=== PATIENT | female | born 1985 | race Hispanic/Latino ===

== ENCOUNTER 2017-04-05 01:57 | Emergency (ER) | payer OTHER ==
[~2017-04-05] VITALS: Ht 152.4 cm; Wt 78.0 kg
[~2017-04-05 01:57] MED LIST: AZIT-21 PO; CEFP500T4 PO; CEPH500C PO; CLIN300C3 PO; DCS100C PO; FAMO1TAB21 PO; HYDR-3454 PO; MAGN400T29 PO; NITR-65 PO; OMEP20CA12 PO; ONDA4TAB8 SL; ONDAN4ODT PO; OXYC-190 PO; PNT40TEC PO; [UNRECOGNIZED DRUG - CODE] OT
[2017-04-05] MEDS ORDERED: morphine INJ 10 MG/ML 1ML (SYR OR VIAL) IVP STA (02:11)
[2017-04-05] MEDS ORDERED: ASPIRIN 81 MG CHEW (CHILDREN'S ASA) PO ONE (02:15)
[2017-04-05 02:28] LABS: BASOPHILS % (AUTO) 0 % (0-10); EOSINOPHILS # (AUTO) 0.1 10^3/uL (0.0-0.3); EOSINOPHILS % (AUTO) 1 % (0-10); LYMPHOCYTES # (AUTO) 3.5 X 10^3 (1.0-4.0); LYMPHOCYTES % (AUTO) 26 % (12-44); MEAN CORPUSCULAR HEMOGLOBIN 30 PG (25-34); MEAN CORPUSCULAR HGB CONC 33 G/DL (32-36); MEAN CORPUSCULAR VOLUME 90 FL (80-99); MEAN PLATELET VOLUME 10.7 FL (7.4-10.4); MONOCYTES # (AUTO) 0.9 X 10^3 (0.0-1.0); MONOCYTES % (AUTO) 7 % (0-12); NEUTROPHILS # (AUTO) 8.8 X 10^3 (1.8-7.8); NEUTROPHILS % (AUTO) 66 % (42-75); PLATELET COUNT 272 10^3/uL (130-400); RED BLOOD COUNT 4.31 10^6/uL (4.35-5.85); RED CELL DISTRIBUTION WIDTH 12.7 % (10.0-14.5); WHITE BLOOD COUNT 13.4 10^3/uL (4.3-11.0)
[2017-04-05] MEDS ORDERED: NS IV 1000 ML 1,000 ML IV ONE (02:33)
[2017-04-05 02:37] LABS: INR 0.9 (0.8-1.4); PROTHROMBIN TIME PATIENT 12.5 SEC (12.2-14.7)
[2017-04-05] MEDS ORDERED: KETOROLAC 30 MG/ML VIAL IVP STA (02:37)
--- NOTE | 2017-04-05 02:45 | ED Chest Pain ---
General Chief Complaint: Chest Pain Stated Complaint: CP Nursing Triage Note: PT AMBULATED TO ROOM. PT C/O CP SINCE THIS MORNING. PT C/O NAUSEA, DIZZINESS, AND BACK PAIN. Nursing Sepsis Screen: No Definite Risk Source: patient, other (friends (2 nuns)) Exam Limitations: language barrier History of Present Illness Time seen by provider: 02:07 Initial Comments Here with report of central chest pain that radiates to her back. This is been going on about 5 hours. Describes it is moderate to severe. States it's of pain. Denies nausea or vomiting. States that she feels a little dizzy. Pain is worse with deep breathing. Timing/Duration: 4-6 hours Severity/Quality: moderate, severe, aching Location: central Radiation: back Activities at Onset: none Prior CP/Workup: no prior cardiac workup ASA po SCRAP [employer]CH [employer]KER: No NTG SL SCRAP BUNCH MAKER: No Associated Symptoms: No abdominal pain, back pain, No diaphoresis, No fever/ chills, No nausea/vomiting, shortness of breath, No weakness Allergies and Home Medications Allergies Coded Allergies: Penicillins (Verified Allergy, Unknown, 06/28/12) FROM UNCODED ALLERGY LIST Home Medications Omeprazole 20 Mg Capsule.dr, 20 MG PO BID, #30 Prescribed by: MICHAEL MARQUEZ on 04/22/166 Ondansetron 4 Mg Tab.rapdis, 4 MG SL Q4H PRN for NAUSEA/VOMITING, #10 Prescribed by: MICHAEL MARQUEZ on 04/22/166 Review of Systems Constitutional: see HPI EENTM: No Symptoms Reported Respiratory: See HPI, Denies Cough, Shortness of Air Cardiovascular: Chest Pain, Denies Edema, Lightheadedness Gastrointestinal: Denies Abdominal Pain, Denies Diarrhea, Denies Vomiting Genitourinary: No Symptoms Reported Musculoskeletal: no symptoms reported All Other Systems Reviewed Negative Unless Noted: Yes Past Xrfrwuz-Xknfkj-Xrcsio Hx Patient Social History Alcohol Use: Occasionally Uses Number of Drinks Today: AA Alcohol Beverage of Choice: Beer Recreational Drug Use: No Smoking Status: Never a Smoker 2nd Hand Smoke Exposure: No Recent Foreign Travel: No Contact w/Someone Who Travel: No Recent Infectious Disease Expo: No Recent Hopitalizations: No Physical Abuse: No Sexual Abuse: No Immunizations Up To Date Tetanus Booster (TDap): Unknown Date of Influenza Vaccine: Feb 21, 2014 Seasonal Allergies Seasonal Allergies: No Surgeries History of Surgeries: Yes (hernia repair) Surgeries: Gallbladder Respiratory History of Respiratory Disorde: No Cardiovascular History of Cardiac Disorders: No (15 years ago reports an arrythmia) Neurological History of Neurological Disord: No Reproductive System Hx Reproductive Disorders: No (2 CHILDREN) Sexually Transmitted Disease: No HIV/AIDS: No Genitourinary History of Genitourinary Disor: No Gastrointestinal History of Gastrointestinal Di: Yes Gastrointestinal Disorders: Gastroesophageal Reflux Musculoskeletal History of Musculoskeletal Dis: No Endocrine History of Endocrine Disorders: No HEENT History of HEENT Disorders: No Cancer History of Cancer: No Psychosocial History of Psychiatric Problem: No Suicide Risk Score: 0 Integumentary History of Skin or Integumenta: No Blood Transfusions History of Blood Disorders: No Adverse Reaction to a Blood Tr: No Family Medical History Significant Family History: Heart Disease, Diabetes Family Medial History: Family history: Diabetes mellitus 03 MOTHER Family history: Hypertension 03 FATHER No Family History of: Abdominal aortic aneurysm Sudeep's disease Alcoholism Aphasia Cancer Cancer of colon Cataract Chest pain Congenital heart disease Congestive heart failure Cystic fibrosis Dementia Dysphagia Family history: Allergy Family history: Alzheimer's disease Family history: Arthritis Family history: Asthma Family history: Breast disease Family history: Cardiovascular disease Family history: Coronary thrombosis Family history: Gastrointestinal disease Family history: Glaucoma Family history: Osteoporosis Family history: Thyroid disorder Headache Hearing loss Heart disease Hereditary disease History of - anemia History of - disorder History of - respiratory disease History of drug abuse Human immunodeficiency virus (HIV) seropositivity Hypercholesterolemia Infertile Kidney disease Malignant neoplasm of lung Myocardial infarction Parkinson's disease Prostate cancer Psychotic disorder Seizure disorder Stroke Tuberculosis Visual impairment Physical Exam Vital Signs Vital Sign - Last 12Hours Capillary Refill : Less Than 3 Seconds General Appearance: WD/WN, Anxious, Moderate Distress HEENT: PERRL/EOMI, Pharyngeal Erythema, Other (clear rhinorrhea bilaterally with mild to moderate nasal congestion and erythema) Neck: Non Tender, Supple Respiratory: Lungs Clear, No Respiratory Distress Cardiovascular: Regular Rate, Rhythm, Normal Peripheral Pulses Gastrointestinal: Non Tender, Soft Extremity: Normal Inspection, Normal Range of Motion, Non Tender, No Calf Tenderness Neurologic/Psychiatric: Alert, Oriented x3 Skin: Normal Color, Warm/Dry Progress/Results/Core Measures Results/Orders Lab Results Laboratory Tests Test 04/05/17 02:12 Range/Units White Blood Count 13.4 H 4.3-11.0 10^3/uL Red Blood Count 4.31 L 4.35-5.85 10^6/uL Hemoglobin 13.0 11.5-16.0 G/DL Hematocrit 39 35-52 % Mean Corpuscular Volume 90 80-99 FL Mean Corpuscular Hemoglobin 30 25-34 PG Mean Corpuscular Hemoglobin Concent 33 32-36 G/DL Red Cell Distribution Width 12.7 10.0-14.5 % Platelet Count 272 130-400 10^3/uL Mean Platelet Volume 10.7 H 7.4-10.4 FL Neutrophils (%) (Auto) 66 42-75 % Lymphocytes (%) (Auto) 26 12-44 % Monocytes (%) (Auto) 7 0-12 % Eosinophils (%) (Auto) 1 0-10 % Basophils (%) (Auto) 0 0-10 % Neutrophils # (Auto) 8.8 H 1.8-7.8 X 10^3 Lymphocytes # (Auto) 3.5 1.0-4.0 X 10^3 Monocytes # (Auto) 0.9 0.0-1.0 X 10^3 Eosinophils # (Auto) 0.1 0.0-0.3 10^3/uL Basophils # (Auto) 0.0 0.0-0.1 10^3/uL Prothrombin Time 12.5 12.2-14.7 SEC INR Comment 0.9 0.8-1.4 Activated Partial Thromboplast Time 30 24-35 SEC D-Dimer 0.49 0.00-0.49 UG/ML Sodium Level 139 135-145 MMOL/L Potassium Level 3.5 L 3.6-5.0 MMOL/L Chloride Level 106 98-107 MMOL/L Carbon Dioxide Level 22 21-32 MMOL/L Anion Gap 11 5-14 MMOL/L Blood Urea Nitrogen 10 7-18 MG/DL Creatinine 0.69 0.60-1.30 MG/DL Estimat Glomerular Filtration Rate > 60 BUN/Creatinine Ratio 14 Glucose Level 94 70-105 MG/DL Calcium Level 9.1 8.5-10.1 MG/DL Magnesium Level 2.0 1.8-2.4 MG/DL Total Bilirubin 0.2 0.1-1.0 MG/DL Aspartate Amino Transf (AST/SGOT) 12 5-34 U/L Alanine Aminotransferase (ALT/SGPT) 14 0-55 U/L Alkaline Phosphatase 68 40-136 U/L Myoglobin 19.9 10.0-92.0 NG/ML Troponin I < 0.30 <0.30 NG/ML Total Protein 7.9 6.4-8.2 GM/DL Albumin 4.0 3.2-4.5 GM/DL Amylase Level 83 25-125 U/L Lipase 10 8-78 U/L Serum Test, Qualitative NEGATIVE NEGATIVE My Orders Orders - PIO GARZA MD Cbc With Automated Diff (04/05/17 02:11) Magnesium (04/05/17 02:11) Chest 1 View, Ap/Pa Only (04/05/17 02:11) Ekg Tracing (04/05/17 02:11) Cardiac Profile 1 (04/05/17 02:11) Comprehensive Metabolic Panel (04/05/17 02:11) Myoglobin Serum (04/05/17 02:11) Protime With Inr (04/05/17 02:11) Partial Thromboplastin Time (04/05/17 02:11) O2 (04/05/17 02:11) Monitor-Rhythm Ecg Trace Only (04/05/17 02:11) Lipid Panel (04/06/17 06:00) Aspirin Chewable Tablet (Baby Aspirin Ch (04/05/17 02:15) Saline Lock/Iv-Start (04/05/17 02:11) Lipase (04/05/17 02:11) Amylase (04/05/17 02:11) Morphine Injection (Morphine Injection (04/05/17 02:11) Fibrin Degradation Products (04/05/17 02:12) Ns Iv 1000 Ml (Sodium Chloride 0.9%) (04/05/17 02:33) Ketorolac Injection (Toradol Injection) (04/05/17 02:37) Hcg,Qualitative Serum (04/05/17 02:45) Lidocaine 2% Viscous 15 Ml (Xylocaine Vi (04/05/17 03:15) Antacid Suspension (Mylanta Suspension (04/05/17 03:15) Famotidine Injection (Pepcid Injection) (04/05/17 03:08) Medications Given in ED Current Medications Medications Dose Ordered Sig/Megan Route Start Time Stop Time Status Last Admin Dose Admin Al Hydrox/Mg Hydrox/Simethicone 30 ml ONCE ONCE PO 04/05/17 03:15 04/05/17 03:16 DC 04/05/17 03:15 30 ML Aspirin 324 mg ONCE ONCE PO 04/05/17 02:15 04/05/17 02:16 DC 04/05/17 02:18 324 MG Lidocaine HCl 15 ml ONCE ONCE PO 04/05/17 03:15 04/05/17 03:16 DC 04/05/17 03:15 15 ML Sodium Chloride 1,000 ml @ 0 mls/hr Q0M ONCE IV 04/05/17 02:33 04/05/17 02:35 DC 04/05/17 02:43 1,000 MLS/HR Vital Signs/I&O Vital Sign - Last 12Hours 04/05/17 04/05/17 02:00 02:00 Temp 98.8 Pulse 95 Resp 23 B/P (MAP) 143/89 Pulse Ox 96 O2 Delivery Room Air Room Air Blood Pressure Mean: 107 Progress Note : Progress Note Seen and evaluated. IV, labs, EKG and chest x-ray ordered. Morphine 4 mg IV. Patient reporting dizziness but states pain is a little better. ASA 324 mg by mouth given. Normal saline 1 L bolus. Toradol 30 mg IV for continued pain. Monitor patient. Patient also given Pepcid 20 mg IV and GI cocktail. 0345: Overall much improved with only minimal residual. Patient was to go home. She has an following in the clinic and states she will follow back up in the clinic. The Sisters that are with her have assisted greatly. Discharged home with return precautions. Patient verbalize understanding instructions and agreement with plan. ECG Initial ECG Impression Date: Apr 05, 2017 Initial ECG Impression Time: 02:04 Initial ECG Rate: 106 Initial ECG Rhythm: Normal Sinus Initial ECG Impression: Normal Initial ECG Comparisson: Unchanged Comment Sinus rhythm with leftward axis. No evidence of ST elevation ND. Similar to previous of 21 April 2016 with slight increase of rate. Interpreted by me. Diagnostic Imaging Diagonstic Imaging: Xray Plain Films/CT/US/NM/MRI: chest Comments No acute findings Reviewed: Reviewed by Me Departure Impression Impression: Primary Impression: Chest pain Qualified Codes: R07.9 - Chest pain, unspecified Additional Impression: Gastroesophageal reflux disease Qualified Codes: K21.9 - Gastro-esophageal reflux disease without esophagitis Disposition: 01 HOME, SELF-CARE Condition: Improved Departure-Patient Inst. Decision time for Depature: 03:49 Referrals: NO,LOCAL PHYSICIAN (PCP) Primary Care Physician Patient Instructions: Chest Pain (DC), Acid Reflux (Gastroesophageal Reflux Disease), Adult (DC) Add. Discharge Instructions: All discharge instructions reviewed with patient and/or family. Voiced understanding. Follow-up in the clinic this week for recheck and further evaluation. Return for worse pain, fever, vomiting, breathing problems or other concerns as needed. Avoid spicy foods. You may take Pepcid or the generic famotidine 20 mg daily as needed for stomach upset. You should follow-up in the clinic for recheck and further evaluation including possible referral to a surgeon for upper endoscopy (scope that looks into the stomach). Copy Copies To 1: PANFILO FLOREZ TIMOTHY D MD Apr 05, 2017 02:45
[2017-04-05 02:49] LABS: ALANINE AMINOTRANSFERASE 14 U/L (0-55); AMYLASE 83 U/L (25-125); ANION GAP 11 MMOL/L (5-14); ASPARTATE AMINO TRANSFERASE 12 U/L (5-34); BILIRUBIN,TOTAL 0.2 MG/DL (0.1-1.0); BLOOD UREA NITROGEN 10 MG/DL (7-18); BUN/CREATININE RATIO 14; CALCIUM 9.1 MG/DL (8.5-10.1); CARBON DIOXIDE 22 MMOL/L (21-32); CHLORIDE 106 MMOL/L (98-107); CREATININE SERUM 0.69 MG/DL (0.60-1.30); GFR ESTIMATED > 60; GLUCOSE 94 MG/DL (70-105); LIPASE 10 U/L (8-78); POTASSIUM 3.5 MMOL/L (3.6-5.0); SODIUM 139 MMOL/L (135-145); TOTAL PROTEIN 7.9 GM/DL (6.4-8.2)
[2017-04-05 02:55] LABS: MYOGLOBIN SERUM 19.9 NG/ML (10.0-92.0)
[2017-04-05] MEDS ORDERED: FAMOTIDINE 20MG/2ML IV (PEPCID) IV STA (03:08)
[2017-04-05] MEDS ORDERED: LIDOCAINE 2% VISCOUS 15 ML UDC PO ONE (03:15)
[2017-04-05] MEDS ORDERED: ANTACID SUSP 30 ML UDC (MYLANTA) PO ONE (03:15)
[2017-04-05 03:54] VITALS: BP 137/91
--- NOTE | 2017-04-05 07:15 | Diagnostic Imaging Report ---
INDICATION: Chest pain. Comparison with 04/21/2016. FINDINGS: The lungs are well-aerated. There are no infiltrates. Heart is not enlarged. No hilar adenopathy. No pneumothorax or pleural effusions. No bony abnormalities. IMPRESSION: Normal portable chest. Dictated by: Dictated on workstation # [id number]
== END 2017-04-05 03:54 | disposition home or self-care (01) ==
LOC: EDUNIT# 01:57 → ER 01:59
DX: K21.9 Gastro-esophageal reflux disease without esophagitis (principal); Z87.19 Personal history of other diseases of the digestive system; Z82.49 Family history of ischemic heart disease and other diseases of the circulatory system
CPT/HCPCS: 36415; 71010; 80053; 82150; 83690; 83735; 83874; 84484; 84703; 85025; 85379; 85610; 85730; 93005; 93041; 96361; 96374; 96375

== ENCOUNTER 2017-06-26 00:17 | Emergency (ER) | payer SELFPAY ==
--- OUTSIDE RECORDS SUMMARY | 2017-06-26 00:23 | XMS REPORT | Continuity of Care Document ---
Author Author [facility] Organization [facility] Address Unknown Phone Unavailable Allergies Active Description Code Type Severity Reaction Onset Reported/Identified Relationship to Patient Clinical Status Yes Penicillins [id number] Drug Allergy Unknown N/A 06/28/2012 Medications There is no data. Problems Date Dx Coded Attending Type Code Diagnosis Diagnosed By 04/14/2012 Ot 275.2 DIS MAGNESIUM METABOLISM 04/14/2012 Ot 530.81 ESOPHAGEAL REFLUX 04/14/2012 Ot 786.50 CHEST PAIN NOS 06/19/2012 Ot 530.81 ESOPHAGEAL REFLUX 06/19/2012 Ot 789.06 ABDOMINAL PAIN, EPIGASTRIC 06/29/2012 Ot 530.81 ESOPHAGEAL REFLUX 06/29/2012 Ot 536.2 PERSISTENT VOMITING 06/29/2012 Ot 574.71 CALC GB/ BILE DUCT W OTH CHOLECYSTITIS W/ 06/29/2012 Ot 575.8 DIS OF GALLBLADDER NEC 06/29/2012 Ot 790.6 ABN BLOOD CHEMISTRY NEC 06/29/2012 Ot V04.81 ND FOR PROPHYLACTIC VACCIN AND INOCULATI 01/06/2013 JACKSON RITCHIE, MICHAEL Mitchell Ot 646.83 PREG COMPL NEC-ANTEPART 01/06/2013 MICHAEL PAZ MD Ot 648.73 BONE DISORDER-ANTEPARTUM 01/06/2013 JACKSON RITCHIE, MICHAEL Mitchell Ot 724.5 BACKACHE NOS 01/06/2013 MICHAEL PAZ MD Ot 789.00 ABDOMINAL PAIN, UNSPECIFIED SITE 04/29/2013 VALERIA RICHMOND DO Ot 462 ACUTE PHARYNGITIS 04/29/2013 VALERIA RICHMOND DO Ot 465.9 ACUTE URI NOS 04/29/2013 VALERIA RICHMOND DO Ot 490 BRONCHITIS NOS 04/29/2013 VALERIA RICHMOND DO Ot 786.2 COUGH 06/22/2013 PIERCE PALMA MD Ot 644.21 EARLY ONSET DELIVERY-DEL 06/22/2013 PIERCE PALMA MD N Ot 659.71 ABN DEL FET HT RT/RHYTHM,W OR W/O MENTIO 06/22/2013 MINERVA RITCHIE, PIERCE Pena Ot V27.0 DELIVER-SINGLE LIVEBORN 07/03/2013 JACKSON RITCHIE, MICHAEL Mitchell Ot 346.90 MIGRAINE UNSPECIFIED W/O INTRACT MGRN W/ 07/03/2013 MICHAEL PAZ MD Ot 599.0 URIN TRACT INFECTION NOS 07/03/2013 JACKSON RITCHIE, MICHAEL Mitchell Ot 784.0 HEADACHE 11/08/2013 CORRINA RITCHIE, ROSA Perdomo Ot 380.4 IMPACTED CERUMEN 11/08/2013 CORRINA RITCHIE, ROSA Perdomo Ot 388.70 OTALGIA NOS 07/21/2014 VALERIA RICHMOND DO Ot 462 ACUTE PHARYNGITIS 07/21/2014 PIERCE PALMA MD Ot V28.89 07/21/2014 PIERCE PALMA MD Ot V22.1 07/21/2014 PIERCE PALMA MD Ot V28.89 07/25/2014 PIERCE PALMA MD Ot V28.89 07/25/2014 PIERCE PALMA MD Ot V22.1 07/25/2014 PIERCE PALMA MD Ot V28.89 08/14/2014 Ot 553.21 INCISIONAL HERNIA 09/11/2014 Ot 553.21 09/11/2014 Ot V72.63 09/11/2014 Ot V74.8 09/24/2014 Ot 553.21 09/24/2014 Ot V72.63 09/24/2014 Ot V74.8 02/05/2015 PIERCE PALMA MD Ot V28.89 02/05/2015 PIERCE PALMA MD Ot V22.1 02/05/2015 PIERCE PALMA MD Ot V28.89 02/05/2015 Ot 553.21 02/05/2015 Ot V72.63 02/05/2015 Ot V74.8 02/10/2015 PIERCE PALMA MD Ot V28.89 02/10/2015 PIERCE PALMA MD Ot V22.1 02/10/2015 PIERCE PALMA MD Ot V28.89 02/10/2015 Ot 553.21 02/10/2015 Ot V72.63 02/10/2015 Ot V74.8 08/07/2015 PIERCE PALMA MD Ot V28.89 08/07/2015 PIERCE PALMA MD Ot V22.1 08/07/2015 PIERCE PALMA MD Ot V28.89 08/07/2015 Ot 553.21 08/07/2015 Ot V72.63 08/07/2015 Ot V74.8 08/07/2015 AMALIA LONG ER RN Ot 789.03 04/21/2016 PIERCE PALMA MD Ot V28.89 OTHER SPECIFIED SCREENING 04/21/2016 PIERCE PALMA MD Ot V22.1 SUPERVIS OTH NORMAL PREG 04/21/2016 PIERCE PALMA MD Ot V28.89 OTHER SPECIFIED SCREENING 04/21/2016 Ot 553.21 INCISIONAL HERNIA 04/21/2016 Ot V72.63 PRE- PROCEDURAL LABORATORY EXAMINATION 04/21/2016 Ot V74.8 SCREEN- BACTERIAL DIS NEC 04/21/2016 AMALIA LONG [facility] Ot 789.03 ABDOMINAL PAIN, RIGHT LOWER QUADRANT 04/21/2016 ALLISON RITCHIE, SAJI Puente Ot S09.90XA UNSPECIFIED INJURY OF HEAD, INITIAL ENCO 04/21/2016 ALLISON RITCHIE, SAJI Puente Ot X58.XXXA EXPOSURE TO OTHER SPECIFIED FACTORS, INI 04/21/2016 ALLISON RITCHIE, SAJI Puente Ot Y99.8 OTHER EXTERNAL CAUSE STATUS 04/22/2016 JACKSON RITCHIE, MICHAEL Mitchell Ot K29.70 GASTRITIS, UNSPECIFIED, WITHOUT BLEEDING 04/22/2016 JACKSON RITCHIE, MICHAEL Mitchell Ot M79.622 PAIN IN LEFT UPPER ARM 04/22/2016 MICHAEL PAZ MD Ot R07.89 OTHER CHEST PAIN 04/22/2016 MICHAEL PAZ MD Ot R07.9 CHEST PAIN, UNSPECIFIED 04/22/2016 MICHAEL PAZ MD Ot R10.13 EPIGASTRIC PAIN 04/22/2016 PIERCE PALMA MD Ot V28.89 OTHER SPECIFIED SCREENING 04/22/2016 PIERCE PALMA MD Ot V22.1 SUPERVIS OTH NORMAL PREG 04/22/2016 PIERCE PALMA MD Ot V28.89 OTHER SPECIFIED SCREENING 04/22/2016 Ot 553.21 INCISIONAL HERNIA 04/22/2016 Ot V72.63 PRE- PROCEDURAL LABORATORY EXAMINATION 04/22/2016 Ot V74.8 SCREEN- BACTERIAL DIS NEC 04/22/2016 AMALIA LONG ER RN Ot 789.03 ABDOMINAL PAIN, RIGHT LOWER QUADRANT 04/22/2016 ALLISON RITCHIE, SAJI Puente Ot S09.90XA UNSPECIFIED INJURY OF HEAD, INITIAL ENCO 04/22/2016 ALLISON RITCHIE, SAJI Puente Ot X58.XXXA EXPOSURE TO OTHER SPECIFIED FACTORS, INI 04/22/2016 ALLISON RITCHIE, SAJI Puente Ot Y99.8 OTHER EXTERNAL CAUSE STATUS 04/22/2016 JACKSON RITCHIE, MICHAEL T Ot K29.70 GASTRITIS, UNSPECIFIED, WITHOUT BLEEDING 04/22/2016 JACKSON RITCHIE, MICHAEL T Ot M79.622 PAIN IN LEFT UPPER ARM 04/22/2016 JACKSON RITCHIE, MICHAEL T Ot R07.89 OTHER CHEST PAIN 04/22/2016 JACKSON RITCHIE, MICHAEL T Ot R07.9 CHEST PAIN, UNSPECIFIED 04/22/2016 JACKSON RITCHIE, MICHAEL T Ot R10.13 EPIGASTRIC PAIN 05/17/2016 ALLISON RITCHIE, SAJI Puente Ot S09.90XA UNSPECIFIED INJURY OF HEAD, INITIAL ENCO 05/17/2016 ALLISON RITCHIE, SAJI Puente Ot X58.XXXA EXPOSURE TO OTHER SPECIFIED FACTORS, INI 05/17/2016 ALLISON RITCHIE, SAJI Puente Ot Y99.8 OTHER EXTERNAL CAUSE STATUS 05/17/2016 PIERCE PALMA MD Ot V28.89 OTHER SPECIFIED SCREENING 05/17/2016 PIERCE PALMA MD Ot V22.1 SUPERVIS OT NORMAL PREG 05/17/2016 PIERCE PALMA MD Ot V28.89 OTHER SPECIFIED SCREENING 05/17/2016 Ot 553.21 INCISIONAL HERNIA 05/17/2016 Ot V72.63 PRE- PROCEDURAL LABORATORY EXAMINATION 05/17/2016 Ot V74.8 SCREEN- BACTERIAL DIS NEC 05/17/2016 AMALIA LONG ER RN Ot 789.03 ABDOMINAL PAIN, RIGHT LOWER QUADRANT 05/17/2016 ALLISON RITCHIE, SAJI Puente Ot S09.90XA UNSPECIFIED INJURY OF HEAD, INITIAL ENCO 05/17/2016 ALLISON RITCHIE, SAJI Puente Ot X58.XXXA EXPOSURE TO OTHER SPECIFIED FACTORS, INI 05/17/2016 ALLISON RITCHIE, SAJI Puente Ot Y99.8 OTHER EXTERNAL CAUSE STATUS 05/17/2016 AMALIA LONG Ot 789.03 ABDOMINAL PAIN, RIGHT LOWER QUADRANT 05/18/2016 AMALIA LONG Ot 789.03 ABDOMINAL PAIN, RIGHT LOWER QUADRANT 05/27/2016 SAJI COOPER MD Ot S09.90XA UNSPECIFIED INJURY OF HEAD, INITIAL ENCO 05/27/2016 SAJI COOPER MD Ot X58.XXXA EXPOSURE TO OTHER SPECIFIED FACTORS, INI 05/27/2016 SAJI COOPER MD Ot Y99.8 OTHER EXTERNAL CAUSE STATUS 05/27/2016 AMALIA LONG Ot 789.03 ABDOMINAL PAIN, RIGHT LOWER QUADRANT 05/28/2016 JACKSON RITCHIE, MICHAEL T Ot K29.70 GASTRITIS, UNSPECIFIED, WITHOUT BLEEDING 05/28/2016 JACKSON RITCHIE, MICHAEL T Ot M79.622 PAIN IN LEFT UPPER ARM 05/28/2016 JACKSON RITCHIE, MICHAEL T Ot R07.89 OTHER CHEST PAIN 05/28/2016 JACKSON RITCHIE, MICHAEL T Ot R07.9 CHEST PAIN, UNSPECIFIED 05/28/2016 JACKSON RITCHIE, MICHAEL T Ot R10.13 EPIGASTRIC PAIN 04/05/2017 PIERCE PALMA MD Ot V28.89 OTHER SPECIFIED SCREENING 04/05/2017 PIERCE PALMA MD Ot V22.1 SUPERVIS OTH NORMAL PREG 04/05/2017 PIERCE PALMA MD Ot V28.89 OTHER SPECIFIED SCREENING 04/05/2017 Ot 553.21 INCISIONAL HERNIA 04/05/2017 Ot V72.63 PRE- PROCEDURAL LABORATORY EXAMINATION 04/05/2017 Ot V74.8 SCREEN- BACTERIAL DIS NEC 04/05/2017 AMALIA LONG Ot 789.03 ABDOMINAL PAIN, RIGHT LOWER QUADRANT 04/05/2017 SAJI COOPER MD Ot S09.90XA UNSPECIFIED INJURY OF HEAD, INITIAL ENCO 04/05/2017 SAJI COOPER MD Ot X58.XXXA EXPOSURE TO OTHER SPECIFIED FACTORS, INI 04/05/2017 SAJI COOPER MD Ot Y99.8 OTHER EXTERNAL CAUSE STATUS 04/05/2017 PIERCE PALMA MD Ot V28.89 OTHER SPECIFIED SCREENING 04/05/2017 PIERCE PALMA MD Ot V22.1 SUPERVIS OTH NORMAL PREG 04/05/2017 PIERCE PALMA MD Ot V28.89 OTHER SPECIFIED SCREENING 04/05/2017 Ot 553.21 INCISIONAL HERNIA 04/05/2017 Ot V72.63 PRE- PROCEDURAL LABORATORY EXAMINATION 04/05/2017 Ot V74.8 SCREEN- BACTERIAL DIS NEC 04/05/2017 AMALIA LONG Ot 789.03 ABDOMINAL PAIN, RIGHT LOWER QUADRANT 04/05/2017 SAJI COOPER MD Ot S09.90XA UNSPECIFIED INJURY OF HEAD, INITIAL ENCO 04/05/2017 SAJI COOPER MD Ot X58.XXXA EXPOSURE TO OTHER SPECIFIED FACTORS, INI 04/05/2017 SAJI COOPER MD Ot Y99.8 OTHER EXTERNAL CAUSE STATUS 04/05/2017 PIO GARZA MD Ot K21.9 GASTRO-ESOPHAGEAL REFLUX DISEASE WITHOUT 04/05/2017 PIO GARZA MD Ot R07.89 OTHER CHEST PAIN 04/05/2017 PIO GARZA MD Ot Z82.49 FAMILY HX OF ISCHEM HEART DIS AND OTH DI 04/05/2017 PIO GARZA MD Ot Z87.19 PERSONAL HISTORY OF OTHER DISEASES OF TH 04/05/2017 PIERCE PALMA MD Ot V28.89 OTHER SPECIFIED SCREENING 04/05/2017 PIERCE PALMA MD Ot V22.1 SUPERVIS OTH NORMAL PREG 04/05/2017 PIERCE PALMA MD Ot V28.89 OTHER SPECIFIED SCREENING 04/05/2017 Ot 553.21 INCISIONAL HERNIA 04/05/2017 Ot V72.63 PRE- PROCEDURAL LABORATORY EXAMINATION 04/05/2017 Ot V74.8 SCREEN- BACTERIAL DIS NEC 04/05/2017 AMALIA LONG Ot 789.03 ABDOMINAL PAIN, RIGHT LOWER QUADRANT 04/05/2017 SAJI COOPER MD Ot S09.90XA UNSPECIFIED INJURY OF HEAD, INITIAL ENCO 04/05/2017 SAJI COOPER MD Ot X58.XXXA EXPOSURE TO OTHER SPECIFIED FACTORS, INI 04/05/2017 SAJI COOPER MD Ot Y99.8 OTHER EXTERNAL CAUSE STATUS 04/05/2017 PIERCE PALMA MD Ot V28.89 OTHER SPECIFIED SCREENING 04/05/2017 PIERCE PALMA MD Ot V22.1 SUPERVIS OTH NORMAL PREG 04/05/2017 PIERCE PALMA MD Ot V28.89 OTHER SPECIFIED SCREENING 04/05/2017 Ot 553.21 INCISIONAL HERNIA 04/05/2017 Ot V72.63 PRE- PROCEDURAL LABORATORY EXAMINATION 04/05/2017 Ot V74.8 SCREEN- BACTERIAL DIS NEC 04/05/2017 MERCEDES AMALIA Paula LISA Ot 789.03 ABDOMINAL PAIN, RIGHT LOWER QUADRANT 04/05/2017 ALLISON RITCHIE, SAJI Puente Ot S09.90XA UNSPECIFIED INJURY OF HEAD, INITIAL ENCO 04/05/2017 SAJI COOPER MD Ot X58.XXXA EXPOSURE TO OTHER SPECIFIED FACTORS, INI 04/05/2017 SAJI COOPER MD Ot Y99.8 OTHER EXTERNAL CAUSE STATUS 04/07/2017 PIO GARZA MD Ot K21.9 GASTRO-ESOPHAGEAL REFLUX DISEASE WITHOUT 04/07/2017 PIO GARZA MD Ot R07.89 OTHER CHEST PAIN 04/07/2017 PIO GARZA MD Ot Z82.49 FAMILY HX OF ISCHEM HEART DIS AND OTH DI 04/07/2017 PIO GARZA MD Ot Z87.19 PERSONAL HISTORY OF OTHER DISEASES OF Procedures Code Description Performed By Performed On 51.23 LAPAROSCOPIC CHOLECYSTECTOMY 06/28/2012 87.53 INTRAOPER CHOLANGIOGRAM 06/28/2012 73.59 MANUAL ASSIST DELIV NEC 06/20/2013 Results Test Result Range Complete blood count (CBC) with automated white blood cell (WBC) differential - 04/21/16 22:50 Blood leukocytes automated count (number/volume) 13.1 10*3/uL 4.3-11.0 Blood erythrocytes automated count (number/volume) 4.13 10*6/uL 4.35-5.85 Venous blood hemoglobin measurement (mass/volume) 12.4 g/dL 11.5-16.0 Blood hematocrit (volume fraction) 37 % 35-52 Automated erythrocyte mean corpuscular volume 90 [foz_us] 80-99 Automated erythrocyte mean corpuscular hemoglobin (mass per erythrocyte) 30 pg 25-34 Automated erythrocyte mean corpuscular hemoglobin concentration measurement ( mass/volume) 33 g/dL 32-36 Automated erythrocyte distribution width ratio 12.9 % 10.0-14.5 Automated blood platelet count (count/volume) 268 10*3/uL 130-400 Automated blood platelet mean volume measurement 11.7 [foz_us] 7.4-10.4 Automated blood neutrophils/100 leukocytes 62 % 42-75 Automated blood lymphocytes/100 leukocytes 30 % 12-44 Blood monocytes/100 leukocytes 7 % 0-12 Automated blood eosinophils/100 leukocytes 1 % 0-10 Automated blood basophils/100 leukocytes 0 % 0-10 Blood neutrophils automated count (number/volume) 8.1 10*3 1.8-7.8 Blood lymphocytes automated count (number/volume) 4.0 10*3 1.0-4.0 Blood monocytes automated count (number/volume) 0.9 10*3 0.0-1.0 Automated eosinophil count 0.1 10*3/uL 0.0-0.3 Automated blood basophil count (count/volume) 0.0 10*3/uL 0.0-0.1 PT panel in platelet poor plasma by coagulation assay - 04/21/16 22:50 Prothrombin time (PT) in platelet poor plasma by coagulation assay 12.3 s 12.2-14.7 INR in platelet poor plasma or blood by coagulation assay 0.9 0.8-1.4 Activated partial thromboplastin time (aPTT) in platelet poor plasma bycoagulation assay - 04/21/16 22:50 Activated partial thromboplastin time (aPTT) in platelet poor plasma bycoagulation assay 28 s 24-35 Serum or plasma choriogonadotropin ( test) detection - 04/21/16 22:50 Serum or plasma choriogonadotropin ( test) detection NEGATIVE NEGATIVE Lipase - 04/21/16 22:50 Lipase 21 U/L 8-78 Comprehensive metabolic panel - 04/21/16 22:50 Serum or plasma sodium measurement (moles/volume) 137 mmol/L 135-145 Serum or plasma potassium measurement (moles/volume) 3.5 mmol/L 3.6-5.0 Serum or plasma chloride measurement (moles/volume) 103 mmol/L 98-107 Carbon dioxide 22 mmol/L 21-32 Serum or plasma anion gap determination (moles/volume) 12 mmol/L 5-14 Serum or plasma urea nitrogen measurement (mass/volume) 11 mg/dL 7-18 Serum or plasma creatinine measurement (mass/volume) 0.70 mg/dL 0.60-1.30 Serum or plasma urea nitrogen/creatinine mass ratio 16 NRG Serum or plasma creatinine measurement with calculation of estimated glomerular filtration rate > NRG Serum or plasma glucose measurement (mass/volume) 87 mg/dL 70-105 Serum or plasma calcium measurement (mass/volume) 9.0 mg/dL 8.5-10.1 Serum or plasma total bilirubin measurement (mass/volume) 0.2 mg/dL 0.1-1.0 Serum or plasma alkaline phosphatase measurement (enzymatic activity/volume) 79 U/L 40-136 Serum or plasma aspartate aminotransferase measurement (enzymatic activity/ volume) 15 U/L 5-34 Serum or plasma alanine aminotransferase measurement (enzymatic activity/volume ) 23 U/L 0-55 Serum or plasma protein measurement (mass/volume) 7.6 g/dL 6.4-8.2 Serum or plasma albumin measurement (mass/volume) 4.2 g/dL 3.2-4.5 Magnesium - 04/21/16 22:50 Magnesium 2.1 mg/dL 1.8-2.4 Serum or plasma troponin i.cardiac measurement (mass/volume) - 04/21/16 22:50 Serum or plasma troponin i.cardiac measurement (mass/volume) < ng/ mL <0.30 Myoglobin, serum - 04/21/16 22:50 Myoglobin, serum 17.5 ng/mL 10.0-92.0 Complete blood count (CBC) with automated white blood cell (WBC) differential - 04/05/17 02:12 Blood leukocytes automated count (number/volume) 13.4 10*3/uL 4.3-11.0 Blood erythrocytes automated count (number/volume) 4.31 10*6/uL 4.35-5.85 Venous blood hemoglobin measurement (mass/volume) 13.0 g/dL 11.5-16.0 Blood hematocrit (volume fraction) 39 % 35-52 Automated erythrocyte mean corpuscular volume 90 [foz_us] 80-99 Automated erythrocyte mean corpuscular hemoglobin (mass per erythrocyte) 30 pg 25-34 Automated erythrocyte mean corpuscular hemoglobin concentration measurement ( mass/volume) 33 g/dL 32-36 Automated erythrocyte distribution width ratio 12.7 % 10.0-14.5 Automated blood platelet count (count/volume) 272 10*3/uL 130-400 Automated blood platelet mean volume measurement 10.7 [foz_us] 7.4-10.4 Automated blood neutrophils/100 leukocytes 66 % 42-75 Automated blood lymphocytes/100 leukocytes 26 % 12-44 Blood monocytes/100 leukocytes 7 % 0-12 Automated blood eosinophils/100 leukocytes 1 % 0-10 Automated blood basophils/100 leukocytes 0 % 0-10 Blood neutrophils automated count (number/volume) 8.8 10*3 1.8-7.8 Blood lymphocytes automated count (number/volume) 3.5 10*3 1.0-4.0 Blood monocytes automated count (number/volume) 0.9 10*3 0.0-1.0 Automated eosinophil count 0.1 10*3/uL 0.0-0.3 Automated blood basophil count (count/volume) 0.0 10*3/uL 0.0-0.1 PT panel in platelet poor plasma by coagulation assay - 04/05/17 02:12 Prothrombin time (PT) in platelet poor plasma by coagulation assay 12.5 s 12.2-14.7 INR in platelet poor plasma or blood by coagulation assay 0.9 0.8-1.4 Activated partial thromboplastin time (aPTT) in platelet poor plasma bycoagulation assay - 04/05/17 02:12 Activated partial thromboplastin time (aPTT) in platelet poor plasma bycoagulation assay 30 s 24-35 Fibrin D-dimer FEU measurement in platelet poor plasma (mass/volume) - 02:12 Fibrin D-dimer FEU measurement in platelet poor plasma (mass/volume) 0.49 ug/mL 0.00-0.49 Comprehensive metabolic panel - 04/05/17 02:12 Serum or plasma sodium measurement (moles/volume) 139 mmol/L 135-145 Serum or plasma potassium measurement (moles/volume) 3.5 mmol/L 3.6-5.0 Serum or plasma chloride measurement (moles/volume) 106 mmol/L 98-107 Carbon dioxide 22 mmol/L 21-32 Serum or plasma anion gap determination (moles/volume) 11 mmol/L 5-14 Serum or plasma urea nitrogen measurement (mass/volume) 10 mg/dL 7-18 Serum or plasma creatinine measurement (mass/volume) 0.69 mg/dL 0.60-1.30 Serum or plasma urea nitrogen/creatinine mass ratio 14 NRG Serum or plasma creatinine measurement with calculation of estimated glomerular filtration rate > NRG Serum or plasma glucose measurement (mass/volume) 94 mg/dL 70-105 Serum or plasma calcium measurement (mass/volume) 9.1 mg/dL 8.5-10.1 Serum or plasma total bilirubin measurement (mass/volume) 0.2 mg/dL 0.1-1.0 Serum or plasma alkaline phosphatase measurement (enzymatic activity/volume) 68 U/L 40-136 Serum or plasma aspartate aminotransferase measurement (enzymatic activity/ volume) 12 U/L 5-34 Serum or plasma alanine aminotransferase measurement (enzymatic activity/volume ) 14 U/L 0-55 Serum or plasma protein measurement (mass/volume) 7.9 g/dL 6.4-8.2 Serum or plasma albumin measurement (mass/volume) 4.0 g/dL 3.2-4.5 Magnesium - 04/05/17 02:12 Magnesium 2.0 mg/dL 1.8-2.4 Serum or plasma troponin i.cardiac measurement (mass/volume) - 04/05/17 02:12 Serum or plasma troponin i.cardiac measurement (mass/volume) < ng/ mL <0.30 Myoglobin, serum - 04/05/17 02:12 Myoglobin, serum 19.9 ng/mL 10.0-92.0 Serum or plasma amylase measurement (enzymatic activity/volume) - 04/05/17 02: 12 Serum or plasma amylase measurement (enzymatic activity/volume) 83 U /L 25-125 Lipase - 04/05/17 02:12 Lipase 10 U/L 8-78 Serum or plasma choriogonadotropin ( test) detection - 04/05/17 02:12 Serum or plasma choriogonadotropin ( test) detection NEGATIVE NEGATIVE Encounters ACCT No. Visit Date/Time Discharge Status Pt. Type Provider Facility Loc./Unit Complaint [id number] 04/05/2017 01:59:00 04/05/2017 03:54:00 DIS Emergency KAYLA RITCHIE, PIO Echols [facility] [id number] 04/21/2016 22:46:00 04/22/2016 00:16:00 DIS Emergency MICHAEL PAZ MD [facility] ER CHEST PAIN;LEFT ARM PAIN [id number] 08/07/2015 09:16:00 08/07/2015 23:59:59 CLS Outpatient SAJI COOPER MD [facility] RAD CLOSED HEAD TRAUMA, LT EYE TRAMA VISUAL DISTURBAN [id number] 02/10/2015 07:09:00 02/10/2015 23:59:59 CLS Outpatient AMALIA LONG [facility] RAD ABDOMINAL PAIN RIGHT LOWER QUADRANT [id number] 07/21/2014 05:07:00 07/21/2014 05:42:00 DIS Emergency VALERIA RICHMOND DO [facility] ER SORE THROAT [id number] 11/07/2013 23:31:00 11/08/2013 00:22:00 DIS Emergency ROSA HOUSER MD [facility] ER LEFT EAR PAIN [id number] 07/02/2013 23:21:00 07/03/2013 01:59:00 DIS Emergency MICHAEL PAZ MD [facility] ER CALIX [id number] 06/19/2013 07:52:00 06/22/2013 14:35:00 DIS Inpatient PIERCE PALMA MD [facility] WS CONTRACTIONS [id number] 05/17/2013 10:15:00 05/17/2013 23:59:59 CLS Outpatient PIERCE PALMA MD [facility] RAD F/U GROWTH [id number] 04/29/2013 19:45:00 04/29/2013 21:27:00 DIS Emergency VALERIA RICHMOND DO [facility] ER COUGH [id number] 04/12/2013 13:47:00 04/12/2013 23:59:59 CLS Outpatient PIECRE PALMA MD [facility] RAD FOLLOW UP ON GROWTH [id number] 03/22/2013 15:47:00 03/22/2013 23:59:59 CLS Outpatient PIERCE PALMA MD [facility] RAD SURVEY [id number] 01/05/2013 21:51:00 01/06/2013 01:26:00 DIS Emergency JACKSON RITCHIE, MICHAEL Mitchell [facility] ER ABD PAIN; 12 WKS PREG [id number] 06/26/2017 00:19:00 ACT Emergency KAYLA RITCHIE, PIO Echols [facility] ER FLU SYM [id number] 09/11/2014 16:05:00 Document Registration [id number] 08/14/2014 06:00:00 Document Registration [id number] 06/24/2012 20:29:00 Document Registration [id number] 06/19/2012 02:06:00 Document Registration [id number] 04/14/2012 15:07:00 Document Registration
== END 2017-06-26 01:00 | disposition left against medical advice (07) ==
LOC: EDUNIT# 00:17 → ER 00:19
DX: J11.1 Influenza due to unidentified influenza virus with other respiratory manifestations (principal)

== ENCOUNTER 2017-08-26 00:23 | Emergency (ER) | payer SELFPAY ==
[~2017-08-26] VITALS: Ht 157.5 cm; Wt 78.0 kg
[2017-08-26] MEDS ORDERED: IBUP200C75 PO (00:55)
--- NOTE | 2017-08-26 01:22 | ED Headache ---
General Chief Complaint: Head/Cervical Problems Stated Complaint: HIGH BLOOD PRESSURE,CALIX X 3 DAYS Nursing Triage Note: Amb to ED 6 reporting a headache x 3 days. States calix comes and goes but returns quickly. Pt using Ibuprofen prn. No HTN history. Nursing Sepsis Screen: No Definite Risk Source: patient, spouse Exam Limitations: language barrier (PT SPEAKS MINIMAL FAROESE. 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 NO NAUSEA NOW SLIGHTLY BLURRY VISION WHEN HEADACHE IS BAD NO SINUS/URI SYMPTOMS NO FEVER NO PARESTHESIAS OR MOTOR DEFICITS NO DIZZINESS NO NECK PAIN OR STIFFNESS TOOK 3 IBUPROFEN 4 HOURS AGO, WITH TEMPORARY RELIEF ONLY GETS HEADACHES APPROXIMATELY ONCE A MONTH, AND ARE NOT THIS BAD PCP: [facility] Allergies and Home Medications Allergies Coded Allergies: Penicillins (Verified Allergy, Unknown, 06/28/12) FROM UNCODED ALLERGY LIST Home Medications Butalb/Acetaminophen/Caffeine 1 Each Capsule, 1-2 EACH PO Q6H PRN for HEADACHE Prescribed by: VALERIA RICHMOND on 08/26/17 0140 Ibuprofen 200 Mg Capsule, 400-600 MG PO Q6H PRN for HEADACHE, (Reported) Patient Home Medication List Home Medication List Reviewed: Yes Constitutional: no symptoms reported Eyes: See HPI Ears, Nose, Mouth, Throat: no symptoms reported Respiratory: no symptoms reported Cardiovascular: no symptoms reported Gastrointestinal: see HPI, nausea, vomiting Genitourinary: no symptoms reported : No LMP: Jul 31, 2017 Musculoskeletal: no symptoms reported Skin: no symptoms reported Psychiatric/Neurological: See HPI, Headache, Denies Numbness, Denies Paresthesia, Denies Seizure, Denies Tingling, Denies Tremors, Denies Weakness Past [id number]-[id number]-[id number] Hx Patient Social History Alcohol Use: Occasionally Uses Number of Drinks Today: AA Alcohol Beverage of Choice: Beer Recreational Drug Use: No Smoking Status: Never a Smoker 2nd Hand Smoke Exposure: No Recent Foreign Travel: No Contact w/Someone Who Travel: No Recent Infectious Disease Expo: No Recent Hopitalizations: No Immunizations Up To Date Tetanus Booster (TDap): Unknown Date of Influenza Vaccine: Feb 21, 2014 Seasonal Allergies Seasonal Allergies: No Surgeries History of Surgeries: Yes (HERNIA REPAIR) Surgeries: Abdominal, Gallbladder Respiratory History of Respiratory Disorde: No Cardiovascular History of Cardiac Disorders: No (15 years ago reports an arrythmia) Neurological History of Neurological Disord: No Reproductive System Last Menstrual Period: Jul 31, 2017 Hx Reproductive Disorders: No (2 CHILDREN) Sexually Transmitted Disease: No HIV/AIDS: No Genitourinary History of Genitourinary Disor: No Gastrointestinal History of Gastrointestinal Di: Yes Gastrointestinal Disorders: Gastroesophageal Reflux Musculoskeletal History of Musculoskeletal Dis: No Endocrine History of Endocrine Disorders: No HEENT History of HEENT Disorders: No Cancer History of Cancer: No Psychosocial History of Psychiatric Problem: No Integumentary History of Skin or Integumenta: No Blood Transfusions History of Blood Disorders: No Adverse Reaction to a Blood Tr: No Family Medical History Significant Family History: Heart Disease, Diabetes Family Medial History: Family history: Diabetes mellitus 03 MOTHER Family history: Hypertension 03 FATHER No Family History of: Abdominal aortic aneurysm [place]'s disease Alcoholism Aphasia Cancer Cancer of colon Cataract Chest pain Congenital heart disease Congestive heart failure Cystic fibrosis Dementia Dysphagia Family history: Allergy Family history: Alzheimer's disease Family history: Arthritis Family history: Asthma Family history: Breast disease Family history: Cardiovascular disease Family history: Coronary thrombosis Family history: Gastrointestinal disease Family history: Glaucoma Family history: Osteoporosis Family history: Thyroid disorder Headache Hearing loss Heart disease Hereditary disease History of - anemia History of - disorder History of - respiratory disease History of drug abuse Human immunodeficiency virus (HIV) seropositivity Hypercholesterolemia Infertile Kidney disease Malignant neoplasm of lung Myocardial infarction Parkinson's disease Prostate cancer Psychotic disorder Seizure disorder Stroke Tuberculosis Visual impairment Physical Exam Vital Signs Vital Signs - First Documented 08/26/17 00:33 Temp 97.9 Pulse 69 Resp 20 B/P (MAP) 115/81 (92) Pulse Ox 100 O2 Delivery Room Air Capillary Refill : Less Than 3 Seconds General Appearance: WD/WN, no apparent distress HEENT: PERRL/EOMI, normal ENT inspection, TMs normal, pharynx normal Neck: non-tender, full range of motion, supple, normal inspection Cardiovascular: normal peripheral pulses, regular rate, rhythm, no edema, no JVD, no murmur Respiratory: normal breath sounds, no respiratory distress, no accessory muscle use Gastrointestinal: normal bowel sounds, non tender, soft Back: normal inspection, no CVA tenderness Extremities: normal range of motion, non-tender, normal inspection, no pedal edema, no calf tenderness, normal capillary refill Psychiatric: alert, oriented x 3 Crainal Nerves: normal hearing, normal speech, PERRL Coordination/Gait: normal gait Motor/Sensory: no motor deficit, no sensory deficit Skin: normal color, warm/dry Progress/Results/Core Measures Results/Orders My Orders Orders - VALERIA RICHMOND DO Ct Head Wo (08/26/17 00:40) Urine Bedside (08/26/17 00:40) Ketorolac Injection (Toradol Injection) (08/26/17 01:45) Orphenadrine Injection (Norflex Injectio (08/26/17 01:45) Medications Given in ED Current Medications Medications Dose Ordered Sig/Megan Route Start Time Stop Time Status Last Admin Dose Admin Ketorolac Tromethamine 60 mg ONCE ONCE IM 08/26/17 01:45 08/26/17 01:46 DC 08/26/17 01:48 60 MG Orphenadrine Citrate 60 mg ONCE ONCE IM 08/26/17 01:45 08/26/17 01:46 DC 08/26/17 01:47 60 MG Vital Signs/I&O Vital Sign - Last 12Hours 08/26/17 08/26/17 08/26/17 08/26/17 00:33 01:47 01:48 01:50 Temp 97.9 97.9 97.9 97.9 Pulse 69 67 Resp 20 20 B/P (MAP) 115/81 (92) 112/76 (92) Pulse Ox 100 100 O2 Delivery Room Air Room Air Blood Pressure Mean: 92 Point of Care Testing Urine -Bedside: Negative Progress Note : Progress Note HEADACHE EASING AT DISMISSAL Diagnostic Imaging Comments CT HEAD-NO ACUTE PROCESS, PER [facility] VIA FAX @ [id number] Reviewed: Reviewed by Me Departure Impression Impression: Primary Impression: Tension type headache Disposition: HOME, SELF-CARE Condition: Stable Departure-Patient Inst. Referrals: [facility] (PCP/Family) Primary Care Physician Patient Instructions: Headache, Adult (DC), Tension Headache (DC) Add. Discharge Instructions: HOME, REST LOTS OF CLEAR LIQUIDS FOLLOW UP WITH [facility] ON MONDAY IF NO BETTER RETURN TO ER IF WORSE All discharge instructions reviewed with patient and/or family. Voiced understanding. Scripts Butalb/Acetaminophen/Caffeine (Esgic Capsule) 1 Each Capsule 1-2 EACH PO Q6H Y for HEADACHE, #10 CAP Prov: VALERIA RICHMOND DO 08/26/17 VALERIA RICHMOND DO Aug 26, 2017 01:21
[2017-08-26] MEDS ORDERED: BUTA1CAP45 PO (01:40)
[2017-08-26] MEDS ORDERED: KETOROLAC 60 MG/2 ML VIAL IM ONE (01:45)
[2017-08-26] MEDS ORDERED: ORPHENADRINE 60 MG/2 ML (NORFLEX) AMP IM ONE (01:45)
[2017-08-26 01:50] VITALS: BP 112/76
--- NOTE | 2017-08-26 06:24 | Diagnostic Imaging Report ---
PROCEDURE: CT head without contrast. TECHNIQUE: Multiple contiguous axial images were obtained through the brain without the use of intravenous contrast. INDICATION: Headache. FINDINGS: The ventricles and sulci are within normal limits. There is no hydrocephalus or cerebral edema. There is no midline shift or mass effect. There is no intracranial mass, hemorrhage, or extra-axial fluid collection. There is mucosal thickening in the maxillary sinuses bilaterally. The remaining sinuses and mastoid air cells are clear. There are no regional areas of decreased attenuation appreciated to suggest an acute CVA. IMPRESSION: No acute intracranial abnormality. Mucosal thickening in the maxillary sinuses bilaterally. Dictated by: Dictated on workstation # [id number]
== END 2017-08-26 01:50 | disposition home or self-care (01) ==
LOC: EDUNIT# 00:23 → ER 00:25
DX: G44.209 Tension-type headache, unspecified, not intractable (principal); K21.9 Gastro-esophageal reflux disease without esophagitis; Z88.0 Allergy status to penicillin; Z87.19 Personal history of other diseases of the digestive system
CPT/HCPCS: 70450; 84703; 96372

== ENCOUNTER 2017-09-18 22:30 | Emergency (ER) | payer SELFPAY ==
[~2017-09-18] VITALS: Ht 160 cm; Wt 78.0 kg
[~2017-09-18 22:30] MED LIST changes: +BUTA1CAP45 PO; +IBUP200C75 PO
--- OUTSIDE RECORDS SUMMARY | 2017-09-18 22:39 | XMS REPORT | Continuity of Care Document ---
Author Author [facility] Organization [facility] Address Unknown Phone Unavailable Allergies Active Description Code Type Severity Reaction Onset Reported/Identified Relationship to Patient Clinical Status Yes Penicillins [id number] Drug Allergy Unknown N/A 06/28/2012 Yes Penicillins Drug Allergy N/A N/A 10/12/2012 Medications There is no data. Problems Date [...] V04.81 ND FOR PROPHYLACTIC VACCIN AND INOCULATI 10/12/2012 214.9 LIPOMA 10/12/2012 V26.49 OTHER PROCREATIVE MANAGEMENT COUNSELING AND ADVICE 10/12/2012 214.9 LIPOMA 10/12/2012 V26.49 OTHER PROCREATIVE MANAGEMENT COUNSELING AND ADVICE 10/12/2012 214.9 LIPOMA 10/12/2012 V26.49 OTHER PROCREATIVE MANAGEMENT COUNSELING AND ADVICE 10/12/2012 214.9 LIPOMA 10/12/2012 V26.49 OTHER PROCREATIVE MANAGEMENT COUNSELING AND ADVICE 10/12/2012 PANFILO FLOREZ DO 214.9 LIPOMA 10/12/2012 PANFILO FLOREZ DO V26.49 OTHER PROCREATIVE MANAGEMENT COUNSELING AND ADVICE 10/12/2012 PANFILO FLOREZ DO 214.9 LIPOMA 10/12/2012 PANFILO FLOREZ DO V26.49 OTHER PROCREATIVE MANAGEMENT COUNSELING AND ADVICE 10/12/2012 FLOREZ DO, PANFILO K 214.9 LIPOMA 10/12/2012 FLOREZ DO, PANFILO K V26.49 OTHER PROCREATIVE MANAGEMENT COUNSELING AND ADVICE 10/12/2012 BLOSSOM LOPEZ APRN A 214.9 LIPOMA 10/12/2012 JOHNBLOSSOM Pena APRN A V26.49 OTHER PROCREATIVE MANAGEMENT COUNSELING AND ADVICE 10/12/2012 JOHNED Pena APRNIDI A 214.9 LIPOMA 10/12/2012 JOHNBLOSSOM Pena APRN V26.49 OTHER PROCREATIVE MANAGEMENT COUNSELING AND ADVICE 10/12/2012 PIERCE PALMA MD 214.9 LIPOMA 10/12/2012 PIERCE PALMA MD V26.49 OTHER PROCREATIVE MANAGEMENT COUNSELING AND ADVICE 10/12/2012 WHITE JARODSHEMANTH 214.9 LIPOMA 10/12/2012 WHITE JARODSHEMANTH V26.49 OTHER PROCREATIVE MANAGEMENT COUNSELING AND ADVICE 10/12/2012 PIERCE PALMA MD 214.9 LIPOMA 10/12/2012 PIERCE PALMA MD V26.49 OTHER PROCREATIVE MANAGEMENT COUNSELING AND ADVICE 10/12/2012 PIERCE PALMA MD 214.9 LIPOMA 10/12/2012 PIERCE PALMA MD V26.49 OTHER PROCREATIVE MANAGEMENT COUNSELING AND ADVICE 10/12/2012 BLOSSOM LOPEZ APRN A 214.9 LIPOMA 10/12/2012 BLOSSOM LOPEZ APRN A V26.49 OTHER PROCREATIVE MANAGEMENT COUNSELING AND ADVICE 10/12/2012 FLOREZ DO, PANFILO K 214.9 LIPOMA 10/12/2012 FLOREZ DOSTANA K V26.49 OTHER PROCREATIVE MANAGEMENT COUNSELING AND ADVICE 10/12/2012 FLOREZ DO, PANFILO K 214.9 LIPOMA 10/12/2012 FLOREZ DO, PANFILO K V26.49 OTHER PROCREATIVE MANAGEMENT COUNSELING AND ADVICE 10/12/2012 BLOSSOM LOPEZ APRN A 214.9 LIPOMA 10/12/2012 BLOSSOM LOPEZ APRN A V26.49 OTHER PROCREATIVE MANAGEMENT COUNSELING AND ADVICE 10/12/2012 FLOREZ DO, PANFILO K 214.9 LIPOMA 10/12/2012 FLOREZ DO PANFILO K V26.49 OTHER PROCREATIVE MANAGEMENT COUNSELING AND ADVICE 10/12/2012 FLOREZ DO, PANFILO K 214.9 LIPOMA 10/12/2012 FLOREZ DO, PANFILO K V26.49 OTHER PROCREATIVE MANAGEMENT COUNSELING AND ADVICE 10/12/2012 FLOREZ DO, PANFILO K 214.9 LIPOMA 10/12/2012 FLOREZ DO, PANFILO K V26.49 OTHER PROCREATIVE MANAGEMENT COUNSELING AND ADVICE 10/12/2012 CURTIS DE JESUS APRN R 214.9 LIPOMA 10/12/2012 CURTIS DE JESUS APRN R V26.49 OTHER PROCREATIVE MANAGEMENT COUNSELING AND ADVICE 11/19/2012 V72.42 TEST POSITIVE RESULT 11/19/2012 V72.42 TEST POSITIVE RESULT 11/19/2012 V72.42 TEST POSITIVE RESULT 11/19/2012 FLOREZ DO, PANFILO K V72.42 TEST POSITIVE RESULT 11/19/2012 FLOREZ DO, PANFILO K V72.42 TEST POSITIVE RESULT 11/19/2012 FLOREZ DO, PANFILO K V72.42 TEST POSITIVE RESULT 11/19/2012 ED LOPEZ APRNIDI A V72.42 TEST POSITIVE RESULT 11/19/2012 ED LOPEZ APRNIDI A V72.42 TEST POSITIVE RESULT 11/19/2012 PIERCE PALMA MD V72.42 TEST POSITIVE RESULT 11/19/2012 HEMANTH NUNES DDS V72.42 TEST POSITIVE RESULT 11/19/2012 PIERCE PALMA MD V72.42 TEST POSITIVE RESULT 11/19/2012 PIERCE PALMA MD V72.42 TEST POSITIVE RESULT 11/19/2012 JOHN MARIE BLOSSOM A V72.42 TEST POSITIVE RESULT 11/19/2012 FLOREZ DO, PANFILO K V72.42 TEST POSITIVE RESULT 11/19/2012 FLOREZ DO, PANFILO K V72.42 TEST POSITIVE RESULT 11/19/2012 BLOSSOM LOPEZ APRN A V72.42 TEST POSITIVE RESULT 11/19/2012 FLOREZ DO, PANFILO K V72.42 TEST POSITIVE RESULT 11/19/2012 FLOREZ DO, PANFILO K V72.42 TEST POSITIVE RESULT 11/19/2012 FLOREZ DO, PANFILO K V72.42 TEST POSITIVE RESULT 11/19/2012 CURTIS DE JESUS APRN R V72.42 TEST POSITIVE RESULT 12/07/2012 V22.1 , NORMAL OTHER 12/07/2012 V22.1 , NORMAL OTHER 12/07/2012 FLOREZ DO, PANFILO K V22.1 , NORMAL OTHER 12/07/2012 FLOREZ DO, PANFILO K V22.1 , NORMAL OTHER 12/07/2012 FLOREZ DO, PANFILO K V22.1 , NORMAL OTHER 12/07/2012 JOHN CAMPAIGN COORDINATOR, BLOSSOM A V22.1 , NORMAL OTHER 12/07/2012 JOHN CAMPAIGN COORDINATOR, BLOSSOM A V22.1 , NORMAL OTHER 12/07/2012 MINERVA RITCHIE, PIERCE N V22.1 , NORMAL OTHER 12/07/2012 DES OLIVERAS, HEMANTH Echols V22.1 , NORMAL OTHER 12/07/2012 MINERVA RITCHIE, PIERCE N V22.1 , NORMAL OTHER 12/07/2012 MINERVA RITCHIE, PIERCE N V22.1 , NORMAL OTHER 12/07/2012 JOHN CAMPAIGN COORDINATOR, BLOSSOM A V22.1 , NORMAL OTHER 12/07/2012 FLOREZ DO, PANFILO K V22.1 , NORMAL OTHER 12/07/2012 FLOREZ DO, PANFILO K V22.1 , NORMAL OTHER 12/07/2012 JOHN CAMPAIGN COORDINATOR, BLOSSOM A V22.1 , NORMAL OTHER 12/07/2012 FLOREZ DO, PANFILO K V22.1 , NORMAL OTHER 12/07/2012 FLOREZ DO, PANFILO K V22.1 , NORMAL OTHER 12/07/2012 FLOREZ DO, PANFILO K V22.1 , NORMAL OTHER 12/07/2012 NEAL MARIE, CURTIS R V22.1 , NORMAL OTHER 12/29/2012 848.9 UNSPECIFIED SITE OF SPRAIN AND STRAIN 12/29/2012 E885.9 ACCIDENTAL FALL FROM OTHER SLIPPING TRIPPING OR STUMBLING 12/29/2012 FLOREZ DO, PANFILO K 848.9 UNSPECIFIED SITE OF SPRAIN AND STRAIN 12/29/2012 FLOREZ DO, PANFILO K E885.9 ACCIDENTAL FALL FROM OTHER SLIPPING TRIPPING OR STUMBLING 12/29/2012 FLOREZ DO, PANFILO K 848.9 UNSPECIFIED SITE OF SPRAIN AND STRAIN 12/29/2012 FLOREZ DO, PANFILO K E885.9 ACCIDENTAL FALL FROM OTHER SLIPPING TRIPPING OR STUMBLING 12/29/2012 FLOREZ DO, PANFILO K 848.9 UNSPECIFIED SITE OF SPRAIN AND STRAIN 12/29/2012 FLOREZ DO, PANFILO K E885.9 ACCIDENTAL FALL FROM OTHER SLIPPING TRIPPING OR STUMBLING 12/29/2012 JOHNNIURKA MARIE BLOSSOM A 848.9 UNSPECIFIED SITE OF SPRAIN AND STRAIN 12/29/2012 JOHN CAMPAIGN COORDINATOR, BLOSSOM A E885.9 ACCIDENTAL FALL FROM OTHER SLIPPING TRIPPING OR STUMBLING 12/29/2012 JOHN CAMPAIGN COORDINATOR, BLOSSOM A 848.9 UNSPECIFIED SITE OF SPRAIN AND STRAIN 12/29/2012 JOHN CAMPAIGN COORDINATOR, BLOSSOM A E885.9 ACCIDENTAL FALL FROM OTHER SLIPPING TRIPPING OR STUMBLING 12/29/2012 PIERCE PALMA MD 848.9 UNSPECIFIED SITE OF SPRAIN AND STRAIN 12/29/2012 PIERCE PALMA MD E885.9 ACCIDENTAL FALL FROM OTHER SLIPPING TRIPPING OR STUMBLING 12/29/2012 WHITE DDS, HEMANTH D 848.9 UNSPECIFIED SITE OF SPRAIN AND STRAIN 12/29/2012 WHITE DDS, HEMANTH D E885.9 ACCIDENTAL FALL FROM OTHER SLIPPING TRIPPING OR STUMBLING 12/29/2012 PIERCE PALMA MD 848.9 UNSPECIFIED SITE OF SPRAIN AND STRAIN 12/29/2012 PIERCE PALMA MD E885.9 ACCIDENTAL FALL FROM OTHER SLIPPING TRIPPING OR STUMBLING 12/29/2012 PIERCE PALMA MD 848.9 UNSPECIFIED SITE OF SPRAIN AND STRAIN 12/29/2012 PIERCE PALMA MD E885.9 ACCIDENTAL FALL FROM OTHER SLIPPING TRIPPING OR STUMBLING 12/29/2012 JOHN MARIE BLOSSOM A 848.9 UNSPECIFIED SITE OF SPRAIN AND STRAIN 12/29/2012 JOHN MARIE BLOSSOM A E885.9 ACCIDENTAL FALL FROM OTHER SLIPPING TRIPPING OR STUMBLING 12/29/2012 VIKKI DO PANFILO K 848.9 UNSPECIFIED SITE OF SPRAIN AND STRAIN 12/29/2012 FLOREZ DO PANFILO K E885.9 ACCIDENTAL FALL FROM OTHER SLIPPING TRIPPING OR STUMBLING 12/29/2012 FLOREZ DO, PANFILO K 848.9 UNSPECIFIED SITE OF SPRAIN AND STRAIN 12/29/2012 FLOREZ DO, PANFILO K E885.9 ACCIDENTAL FALL FROM OTHER SLIPPING TRIPPING OR STUMBLING 12/29/2012 JOHN CAMPAIGN COORDINATOR, BLOSSOM A 848.9 UNSPECIFIED SITE OF SPRAIN AND STRAIN 12/29/2012 JOHN CAMPAIGN COORDINATOR, BLOSSOM A E885.9 ACCIDENTAL FALL FROM OTHER SLIPPING TRIPPING OR STUMBLING 12/29/2012 FLOREZ DO, PANFILO K 848.9 UNSPECIFIED SITE OF SPRAIN AND STRAIN 12/29/2012 FLOREZ DO, PANFILO K E885.9 ACCIDENTAL FALL FROM OTHER SLIPPING TRIPPING OR STUMBLING 12/29/2012 FLOREZ DO, PANFILO K 848.9 UNSPECIFIED SITE OF SPRAIN AND STRAIN 12/29/2012 FLOREZ DO, PANFILO K E885.9 ACCIDENTAL FALL FROM OTHER SLIPPING TRIPPING OR STUMBLING 12/29/2012 FLOREZ DO, PANFILO K 848.9 UNSPECIFIED SITE OF SPRAIN AND STRAIN 12/29/2012 FLOREZ DO, PANFILO K E885.9 ACCIDENTAL FALL FROM OTHER SLIPPING TRIPPING OR STUMBLING 12/29/2012 NELA VIRKN, CURTIS R 848.9 UNSPECIFIED SITE OF SPRAIN AND STRAIN 12/29/2012 NEAL MARIE CURTIS R E885.9 ACCIDENTAL FALL FROM OTHER SLIPPING TRIPPING OR STUMBLING 01/06/2013 JACKSON RITCHIE, MICHAEL Mitchell Ot 646.83 PREG COMPL NEC-ANTEPART 01/06/2013 MICHAEL PAZ MD Ot 648.73 BONE DISORDER-ANTEPARTUM 01/06/2013 MICHAEL PAZ MD Ot 724.5 BACKACHE NOS 01/06/2013 MICHAEL PAZ MD Ot 789.00 ABDOMINAL PAIN, UNSPECIFIED SITE 01/11/2013 564.00 CONSTIPATION 01/11/2013 787.01 NAUSEA WITH VOMITING 01/11/2013 V74.5 STD SCREEN 01/11/2013 V76.2 CERVICAL CANCER SCREENING (PAP SMEAR) 01/11/2013 PANFILO FLOREZ DO 564.00 CONSTIPATION 01/11/2013 PANFILO FLOREZ DO 787.01 NAUSEA WITH VOMITING 01/11/2013 PANFILO FLOREZ DO V74.5 STD SCREEN 01/11/2013 STAN FLOREZ DOA K V76.2 CERVICAL CANCER SCREENING (PAP SMEAR) 01/11/2013 STAN FLOREZ DOA K 564.00 CONSTIPATION 01/11/2013 STAN FLOREZ DOA K 787.01 NAUSEA WITH VOMITING 01/11/2013 FLOREZ STAN ANDERSONA K V74.5 STD SCREEN 01/11/2013 FLOREZ , PANFILO K V76.2 CERVICAL CANCER SCREENING (PAP SMEAR) 01/11/2013 STAN FLOREZ DOA K 564.00 CONSTIPATION 01/11/2013 STAN FLOREZ DOA K 787.01 NAUSEA WITH VOMITING 01/11/2013 STAN FLOREZ DOA K V74.5 STD SCREEN 01/11/2013 STAN FLOREZ DOA K V76.2 CERVICAL CANCER SCREENING (PAP SMEAR) 01/11/2013 ED LOPEZ APRNIDI A 564.00 CONSTIPATION 01/11/2013 ED LOPEZ APRNIDI A 787.01 NAUSEA WITH VOMITING 01/11/2013 ED LOPEZ APRNIDI A V74.5 STD SCREEN 01/11/2013 BLOSSOM LOPEZ APRN A V76.2 CERVICAL CANCER SCREENING (PAP SMEAR) 01/11/2013 ED LOPEZ APRNIDI A 564.00 CONSTIPATION 01/11/2013 ED LOPEZ APRNIDI A 787.01 NAUSEA WITH VOMITING 01/11/2013 ED LOPEZ APRNIDI A V74.5 STD SCREEN 01/11/2013 ED LOPEZ APRNIDI A V76.2 CERVICAL CANCER SCREENING (PAP SMEAR) 01/11/2013 PIERCE PALMA MD 564.00 CONSTIPATION 01/11/2013 PIERCE PALMA MD 787.01 NAUSEA WITH VOMITING 01/11/2013 PIERCE PALMA MD V74.5 STD SCREEN 01/11/2013 PIERCE PALMA MD V76.2 CERVICAL CANCER SCREENING (PAP SMEAR) 01/11/2013 HEMANTH NUNES DDS 564.00 CONSTIPATION 01/11/2013 DES OLIVERASHEMANTH 787.01 NAUSEA WITH VOMITING 01/11/2013 DES OLIVERASHEMANTH V74.5 STD SCREEN 01/11/2013 WHITE JARODSHEMANTH V76.2 CERVICAL CANCER SCREENING (PAP SMEAR) 01/11/2013 PIERCE PALMA MD 564.00 CONSTIPATION 01/11/2013 PIERCE PALMA MD 787.01 NAUSEA WITH VOMITING 01/11/2013 PIERCE PALMA MD V74.5 STD SCREEN 01/11/2013 PIERCE PALMA MD V76.2 CERVICAL CANCER SCREENING (PAP SMEAR) 01/11/2013 PIERCE PALMA MD 564.00 CONSTIPATION 01/11/2013 PIERCE PALMA MD 787.01 NAUSEA WITH VOMITING 01/11/2013 PIERCE PALMA MD V74.5 STD SCREEN 01/11/2013 PIERCE PALMA MD V76.2 CERVICAL CANCER SCREENING (PAP SMEAR) 01/11/2013 ED LOPEZ APRNIDI A 564.00 CONSTIPATION 01/11/2013 ED LOPEZ APRNIDI A 787.01 NAUSEA WITH VOMITING 01/11/2013 ED LOPEZ APRNIDI A V74.5 STD SCREEN 01/11/2013 ED LOPEZ APRNIDI A V76.2 CERVICAL CANCER SCREENING (PAP SMEAR) 01/11/2013 STAN FLOREZ DOA K 564.00 CONSTIPATION 01/11/2013 VIKKI ANDERSON PANFILO K 787.01 NAUSEA WITH VOMITING 01/11/2013 VIKKI ANDERSON PANFILO K V74.5 STD SCREEN 01/11/2013 VIKKI ANDERSON PANFILO K V76.2 CERVICAL CANCER SCREENING (PAP SMEAR) 01/11/2013 VIKKI ANDERSON PANFILO K 564.00 CONSTIPATION 01/11/2013 VIKKI ANDERSON PANFILO K 787.01 NAUSEA WITH VOMITING 01/11/2013 VIKKI ANDERSON PANFILO K V74.5 STD SCREEN 01/11/2013 FLOREZ DO PANFILO K V76.2 CERVICAL CANCER SCREENING (PAP SMEAR) 01/11/2013 JOHN MARIE BLOSSOM A 564.00 CONSTIPATION 01/11/2013 ED LOPEZ APRNIDI A 787.01 NAUSEA WITH VOMITING 01/11/2013 JOHN MARIE BLOSSOM A V74.5 STD SCREEN 01/11/2013 JOHN MARIE BLOSSOM A V76.2 CERVICAL CANCER SCREENING (PAP SMEAR) 01/11/2013 STAN FLOREZ DOA K 564.00 CONSTIPATION 01/11/2013 VIKKI ANDERSON PANFILO K 787.01 NAUSEA WITH VOMITING 01/11/2013 VIKKI ANDERSON, PANFILO K V74.5 STD SCREEN 01/11/2013 FLOREZ , PANFILO K V76.2 CERVICAL CANCER SCREENING (PAP SMEAR) 01/11/2013 FLOREZ DO, PANFILO K 564.00 CONSTIPATION 01/11/2013 FLOREZ DO, PANFILO K 787.01 NAUSEA WITH VOMITING 01/11/2013 FLOREZ DO, PANFILO K V74.5 STD SCREEN 01/11/2013 FLOREZ DO, PANFILO K V76.2 CERVICAL CANCER SCREENING (PAP SMEAR) 01/11/2013 FLOREZ DO, PANFILO K 564.00 CONSTIPATION 01/11/2013 FLOREZ DO, PANFILO K 787.01 NAUSEA WITH VOMITING 01/11/2013 FLOREZ DO, PANFILO K V74.5 STD SCREEN 01/11/2013 FLOREZ DO, PANFILO K V76.2 CERVICAL CANCER SCREENING (PAP SMEAR) 01/11/2013 NEAL CAMPAIGN COORDINATOR, CURTIS R 564.00 CONSTIPATION 01/11/2013 NEAL CAMPAIGN COORDINATOR, CURTIS R 787.01 NAUSEA WITH VOMITING 01/11/2013 NEAL CAMPAIGN COORDINATOR, CURTIS R V74.5 STD SCREEN 01/11/2013 NEAL CAMPAIGN COORDINATOR, CURTIS R V76.2 CERVICAL CANCER SCREENING (PAP SMEAR) 01/16/2013 346.10 MIGRAINE WITHOUT AURA WITHOUT MENTION OF INTRACTABLE MIGRAINE WITHOUT MENTION OF STATUS MIGRAINOSUS 01/16/2013 PANFILO FLOREZ DO K 346.10 MIGRAINE WITHOUT AURA WITHOUT MENTION OF INTRACTABLE MIGRAINE WITHOUT MENTION OF STATUS MIGRAINOSUS 01/16/2013 PANFILO FLOREZ DO K 346.10 MIGRAINE WITHOUT AURA WITHOUT MENTION OF INTRACTABLE MIGRAINE WITHOUT MENTION OF STATUS MIGRAINOSUS 01/16/2013 PANFILO FLOREZ DO K 346.10 MIGRAINE WITHOUT AURA WITHOUT MENTION OF INTRACTABLE MIGRAINE WITHOUT MENTION OF STATUS MIGRAINOSUS 01/16/2013 BLOSSOM LOPEZ APRN A 346.10 MIGRAINE WITHOUT AURA WITHOUT MENTION OF INTRACTABLE MIGRAINE WITHOUT MENTION OF STATUS MIGRAINOSUS 01/16/2013 BLOSSOM LOPEZ APRN A 346.10 MIGRAINE WITHOUT AURA WITHOUT MENTION OF INTRACTABLE MIGRAINE WITHOUT MENTION OF STATUS MIGRAINOSUS 01/16/2013 MINERVA RITCHIE, PIERCE Pena 346.10 MIGRAINE WITHOUT AURA WITHOUT MENTION OF INTRACTABLE MIGRAINE WITHOUT MENTION OF STATUS MIGRAINOSUS 01/16/2013 DES OLIVERAS, HEMANTH Echols 346.10 MIGRAINE WITHOUT AURA WITHOUT MENTION OF INTRACTABLE MIGRAINE WITHOUT MENTION OF STATUS MIGRAINOSUS 01/16/2013 PIERCE PALMA MD 346.10 MIGRAINE WITHOUT AURA WITHOUT MENTION OF INTRACTABLE MIGRAINE WITHOUT MENTION OF STATUS MIGRAINOSUS 01/16/2013 PIERCE PALMA MD 346.10 MIGRAINE WITHOUT AURA WITHOUT MENTION OF INTRACTABLE MIGRAINE WITHOUT MENTION OF STATUS MIGRAINOSUS 01/16/2013 JOHN CAMPAIGN COORDINATOR, BLOSSOM A 346.10 MIGRAINE WITHOUT AURA WITHOUT MENTION OF INTRACTABLE MIGRAINE WITHOUT MENTION OF STATUS MIGRAINOSUS 01/16/2013 PANFILO FLOREZ DO K 346.10 MIGRAINE WITHOUT AURA WITHOUT MENTION OF INTRACTABLE MIGRAINE WITHOUT MENTION OF STATUS MIGRAINOSUS 01/16/2013 PANFILO FLOREZ DO K 346.10 MIGRAINE WITHOUT AURA WITHOUT MENTION OF INTRACTABLE MIGRAINE WITHOUT MENTION OF STATUS MIGRAINOSUS 01/16/2013 JOHNBLOSSOM Pena APRN A 346.10 MIGRAINE WITHOUT AURA WITHOUT MENTION OF INTRACTABLE MIGRAINE WITHOUT MENTION OF STATUS MIGRAINOSUS 01/16/2013 VIKKI ANDERSON PANFILO K 346.10 MIGRAINE WITHOUT AURA WITHOUT MENTION OF INTRACTABLE MIGRAINE WITHOUT MENTION OF STATUS MIGRAINOSUS 01/16/2013 PANFILO FLOREZ DO K 346.10 MIGRAINE WITHOUT AURA WITHOUT MENTION OF INTRACTABLE MIGRAINE WITHOUT MENTION OF STATUS MIGRAINOSUS 01/16/2013 FLOREZ STAN ANDERSONA K 346.10 MIGRAINE WITHOUT AURA WITHOUT MENTION OF INTRACTABLE MIGRAINE WITHOUT MENTION OF STATUS MIGRAINOSUS 01/16/2013 CURTIS DE JESUS APRN 346.10 MIGRAINE WITHOUT AURA WITHOUT MENTION OF INTRACTABLE MIGRAINE WITHOUT MENTION OF STATUS MIGRAINOSUS 04/19/2013 PANFILO FLOREZ DO K V77.1 DIABETES SCREENING 04/19/2013 PANFILO FLOREZ DO K V78.0 ANEMIA SCREENING 04/19/2013 PANFILO FLOREZ DO V89.04 SUSPECTED PROBLEM WITH GROWTH NOT FOUND 04/19/2013 JOHN CAMPAIGN COORDINATOR, BLOSSOM A V77.1 DIABETES SCREENING 04/19/2013 JOHN CAMPAIGN COORDINATOR, BLOSSOM A V78.0 ANEMIA SCREENING 04/19/2013 JOHN CAMPAIGN COORDINATOR, BLOSSOM A V89.04 SUSPECTED PROBLEM WITH GROWTH NOT FOUND 04/19/2013 JOHN CAMPAIGN COORDINATOR, BLOSSOM A V77.1 DIABETES SCREENING 04/19/2013 JOHN CAMPAIGN COORDINATOR, BLOSSOM A V78.0 ANEMIA SCREENING 04/19/2013 JOHN CAMPAIGN COORDINATOR, BLOSSOM A V89.04 SUSPECTED PROBLEM WITH GROWTH NOT FOUND 04/19/2013 PIERCE PALMA MD V77.1 DIABETES SCREENING 04/19/2013 PIERCE PALMA MD V78.0 ANEMIA SCREENING 04/19/2013 PIERCE PALMA MD V89.04 SUSPECTED PROBLEM WITH GROWTH NOT FOUND 04/19/2013 WHITE DDS, HEMANTH D V77.1 DIABETES SCREENING 04/19/2013 WHITE DDS, HEMANTH D V78.0 ANEMIA SCREENING 04/19/2013 WHITE DDS, HEMANTH D V89.04 SUSPECTED PROBLEM WITH GROWTH NOT FOUND 04/19/2013 PIERCE PALMA MD V77.1 DIABETES SCREENING 04/19/2013 PIERCE PALMA MD V78.0 ANEMIA SCREENING 04/19/2013 PIERCE PALMA MD V89.04 SUSPECTED PROBLEM WITH GROWTH NOT FOUND 04/19/2013 PIERCE PALMA MD V77.1 DIABETES SCREENING 04/19/2013 PIERCE PALMA MD V78.0 ANEMIA SCREENING 04/19/2013 PIERCE PALMA MD V89.04 SUSPECTED PROBLEM WITH GROWTH NOT FOUND 04/19/2013 JOHNJean MARIE BLOSSOM A V77.1 DIABETES SCREENING 04/19/2013 JOHN APRN, BLOSSOM A V78.0 ANEMIA SCREENING 04/19/2013 JOHNBLOSSOM Pena APRN A V89.04 SUSPECTED PROBLEM WITH GROWTH NOT FOUND 04/19/2013 FLOREZ DO, PANFILO K V77.1 DIABETES SCREENING 04/19/2013 FLOREZ DO, PANFILO K V78.0 ANEMIA SCREENING 04/19/2013 FLOREZ DO, PANFILO K V89.04 SUSPECTED PROBLEM WITH GROWTH NOT FOUND 04/19/2013 FLOREZ DO, PANFILO K V77.1 DIABETES SCREENING 04/19/2013 FLOREZ DO, PANFILO K V78.0 ANEMIA SCREENING 04/19/2013 FLOREZ DO, PANFILO K V89.04 SUSPECTED PROBLEM WITH GROWTH NOT FOUND 04/19/2013 JOHN CAMPAIGN COORDINATOR, BLOSSOM A V77.1 DIABETES SCREENING 04/19/2013 JOHN CAMPAIGN COORDINATOR, BLOSSOM A V78.0 ANEMIA SCREENING 04/19/2013 JOHNED Pena APRNIDI A V89.04 SUSPECTED PROBLEM WITH GROWTH NOT FOUND 04/19/2013 FLOREZ DO, PANFILO K V77.1 DIABETES SCREENING 04/19/2013 FLOREZ DO, PANFILO K V78.0 ANEMIA SCREENING 04/19/2013 FLOREZ DO, PANFILO K V89.04 SUSPECTED PROBLEM WITH GROWTH NOT FOUND 04/19/2013 FLOREZ DO, PANFILO K V77.1 DIABETES SCREENING 04/19/2013 FLOREZ DO, PANFILO K V78.0 ANEMIA SCREENING 04/19/2013 FLOREZ DO, PANFILO K V89.04 SUSPECTED PROBLEM WITH GROWTH NOT FOUND 04/19/2013 FLOREZ DO, PANFILO K V77.1 DIABETES SCREENING 04/19/2013 FLOREZ DO, PANFILO K V78.0 ANEMIA SCREENING 04/19/2013 FLOREZ DO, PANFILO K V89.04 SUSPECTED PROBLEM WITH GROWTH NOT FOUND 04/19/2013 NEAL CAMPAIGN COORDINATOR, CURTIS R V77.1 DIABETES SCREENING 04/19/2013 NEAL CAMPAIGN COORDINATOR, CURTIS R V78.0 ANEMIA SCREENING 04/19/2013 NEAL CAMPAIGN COORDINATOR, CURTIS R V89.04 SUSPECTED PROBLEM WITH GROWTH NOT FOUND 04/27/2013 JOHN CAMPAIGN COORDINATOR, BLOSSOM A 462 PHARYNGITIS ACUTE 04/27/2013 JOHN MARIE, BLOSSOM A 786.2 COUGH 04/27/2013 JOHN CAMPAIGN COORDINATOR, BLOSSOM A 462 PHARYNGITIS ACUTE 04/27/2013 JOHN CAMPAIGN COORDINATOR, BLOSSOM A 786.2 COUGH 04/27/2013 PIERCE PALMA MD N 462 PHARYNGITIS ACUTE 04/27/2013 PIERCE PALMA MD N 786.2 COUGH 04/27/2013 WHITE DDS, HEMANTH D 462 PHARYNGITIS ACUTE 04/27/2013 WHITE DDS, HEMANTH D 786.2 COUGH 04/27/2013 PIERCE PALMA MD N 462 PHARYNGITIS ACUTE 04/27/2013 PIERCE PALMA MD N 786.2 COUGH 04/27/2013 PIERCE PALMA MD N 462 PHARYNGITIS ACUTE 04/27/2013 PIERCE PALMA MD N 786.2 COUGH 04/27/2013 JOHN VIRKN, BLOSSOM A 462 PHARYNGITIS ACUTE 04/27/2013 JOHN APRN, BLOSSOM A 786.2 COUGH 04/27/2013 FLOREZ DO, PANFILO K 462 PHARYNGITIS ACUTE 04/27/2013 FLOREZ DO, PANFILO K 786.2 COUGH 04/27/2013 FLOREZ DO, PANFILO K 462 PHARYNGITIS ACUTE 04/27/2013 FLOREZ DO, PANFILO K 786.2 COUGH 04/27/2013 JOHN CAMPAIGN COORDINATOR, BLOSSOM A 462 PHARYNGITIS ACUTE 04/27/2013 JOHN CAMPAIGN COORDINATOR, BLOSSOM A 786.2 COUGH 04/27/2013 FLOREZ DO, PANFILO K 462 PHARYNGITIS ACUTE 04/27/2013 FLOREZ DO, PANFILO K 786.2 COUGH 04/27/2013 FLOREZ DO, PANFILO K 462 PHARYNGITIS ACUTE 04/27/2013 FLOREZ DO, PANFILO K 786.2 COUGH 04/27/2013 FLOREZ DO, PANFILO K 462 PHARYNGITIS ACUTE 04/27/2013 FLOREZ DO, PANFILO K 786.2 COUGH 04/27/2013 NEAL CAMPAIGN COORDINATOR, CURTIS R 462 PHARYNGITIS ACUTE 04/27/2013 NEAL CAMPAIGN COORDINATOR, CURTIS R 786.2 COUGH 04/29/2013 BASILIO DO, VALERIA K Ot 462 ACUTE PHARYNGITIS 04/29/2013 BASILIO DO, VALERIA K Ot 465.9 ACUTE URI NOS 04/29/2013 BASILIO DO, VALERIA K Ot 490 BRONCHITIS NOS 04/29/2013 BASILIO DO, VALERIA K Ot 786.2 COUGH 06/22/2013 MINERVA RITCHIE, PIERCE Pena Ot 644.21 EARLY ONSET DELIVERY-DEL 06/22/2013 PIERCE PALMA MD Ot 659.71 ABN DEL FET HT RT/RHYTHM,W OR W/O MENTIO 06/22/2013 PIERCE PALMA MD Ot V27.0 DELIVER-SINGLE LIVEBORN 07/03/2013 JACKSON RITCHIE, MIHCAEL Mitchell Ot 346.90 MIGRAINE UNSPECIFIED W/O INTRACT MGRN W/ 07/03/2013 MICHAEL PAZ MD Ot 599.0 URIN TRACT INFECTION NOS 07/03/2013 MICHAEL PAZ MD Ot 784.0 HEADACHE 08/02/2013 BLOSSOM LOPEZ APRN V24.2 F/U, ROUTINE 08/02/2013 BLOSSOM LOPEZ APRN V25.9 CONTRACEPTION MANAGEMENT 08/02/2013 FLOREZ DO, PANFILO K V24.2 F/U, ROUTINE 08/02/2013 FLOREZ DO, PANFILO K V25.9 CONTRACEPTION MANAGEMENT 08/02/2013 FLOREZ DO, PANFILO K V24.2 F/U, ROUTINE 08/02/2013 FLOREZ DO, PANFILO K V25.9 CONTRACEPTION MANAGEMENT 08/02/2013 BLOSSOM LOPEZ APRN A V24.2 F/U, ROUTINE 08/02/2013 BLOSSOM LOPEZ APRN A V25.9 CONTRACEPTION MANAGEMENT 08/02/2013 FLOREZ DO, PANFILO K V24.2 F/U, ROUTINE 08/02/2013 FLOREZ DO, PANFILO K V25.9 CONTRACEPTION MANAGEMENT 08/02/2013 FLOREZ DO, PANFILO K V24.2 F/U, ROUTINE 08/02/2013 FLOREZ DO, PANFILO K V25.9 CONTRACEPTION MANAGEMENT 08/02/2013 FLOREZ DO, PANFILO K V24.2 F/U, ROUTINE 08/02/2013 FLOREZ DO, PANFILO K V25.9 CONTRACEPTION MANAGEMENT 08/02/2013 ARNOLDO DE JESUS APRNINA R V24.2 F/U, ROUTINE 08/02/2013 NEAL MARIE CURTIS R V25.9 CONTRACEPTION MANAGEMENT 11/08/2013 FLOREZ DO, PANFILO K 380.4 CERUMEN IMPACTION 11/08/2013 ED LOPEZ APRNIDI A 380.4 CERUMEN IMPACTION 11/08/2013 FLOREZ DO, PANFILO K 380.4 CERUMEN IMPACTION 11/08/2013 FLOREZ DO, PANFILO K 380.4 CERUMEN IMPACTION 11/08/2013 FLOREZ DO, PANFILO K 380.4 CERUMEN IMPACTION 11/08/2013 NEAL MARIE CURTIS R 380.4 CERUMEN IMPACTION 11/08/2013 CORRINA RITCHIE, ROSA Perdomo Ot 380.4 IMPACTED CERUMEN 11/08/2013 CORRINA RITCHIE, ROSA Perdomo Ot 388.70 OTALGIA NOS 12/12/2013 BLOSSOM LOPEZ APRN A V25.09 CONTRACEPTIVE COUNSELING - GENERAL 12/12/2013 FLOREZ DO PANFILO K V25.09 CONTRACEPTIVE COUNSELING - GENERAL 12/12/2013 FLOREZ DO, PANFILO K V25.09 CONTRACEPTIVE COUNSELING - GENERAL 12/12/2013 FLOREZ DO PANFILO K V25.09 CONTRACEPTIVE COUNSELING - GENERAL 12/12/2013 NEAL MARIE CURTIS R V25.09 CONTRACEPTIVE COUNSELING - GENERAL 03/17/2014 PANFILO FLOREZ DO K V72.31 LIBRARY PARAPROFESSIONAL EXAM, ROUTINE 03/17/2014 PANFILO FLOREZ DO V76.10 BREAST CANCER SCREENING 03/17/2014 PANFILO FLOREZ DO K V72.31 LIBRARY PARAPROFESSIONAL EXAM, ROUTINE 03/17/2014 PANFILO FLOREZ DO K V76.10 BREAST CANCER SCREENING 03/17/2014 CURTIS DE JESUS APRN R V72.31 LIBRARY PARAPROFESSIONAL EXAM, ROUTINE 03/17/2014 CURTIS DE JESUS APRN R V76.10 BREAST CANCER SCREENING 06/13/2014 CURTIS DE JESUS APRN R 553.1 UMBILICAL HERNIA WITHOUT OBSTRUCTION OR GANGRENE 07/21/2014 ANNELISE RICHMOND DOA Karson Ot 462 ACUTE PHARYNGITIS 07/21/2014 MINERVA RITCHIE, PIERCE N Ot V28.89 07/21/2014 MINERVA RITCHIE, PIERCE Pena Ot V22.1 07/21/2014 MINERVA RITCHIE, PIERCE N Ot V28.89 07/25/2014 PIERCE PALMA MD N Ot V28.89 07/25/2014 PIERCE PALMA MD Ot V22.1 07/25/2014 PIERCE PALMA MD Ot V28.89 08/14/2014 Ot 553.21 INCISIONAL HERNIA 09/11/2014 Ot 553.21 09/11/2014 Ot V72.63 09/11/2014 Ot V74.8 09/24/2014 Ot 553.21 09/24/2014 Ot V72.63 09/24/2014 Ot V74.8 02/05/2015 PIERCE PALMA MD N Ot V28.89 02/05/2015 PIERCE PALMA MD N Ot V22.1 02/05/2015 PIERCE PALMA MD N Ot V28.89 02/05/2015 Ot 553.21 02/05/2015 Ot V72.63 02/05/2015 Ot V74.8 02/10/2015 PIERCE PALMA MD Ot V28.89 02/10/2015 PIERCE PALMA MD N Ot V22.1 02/10/2015 PIERCE PALMA MD N Ot V28.89 02/10/2015 Ot 553.21 02/10/2015 Ot V72.63 02/10/2015 Ot V74.8 08/07/2015 PIERCE PALMA MD Ot V28.89 08/07/2015 PIERCE PALMA MD Ot V22.1 08/07/2015 PIERCE PALMA MD Ot V28.89 08/07/2015 Ot 553.21 08/07/2015 Ot V72.63 08/07/2015 Ot V74.8 08/07/2015 AMALIA LONGP Ot 789.03 04/21/2016 PIERCE PALMA MD Ot V28.89 OTHER SPECIFIED SCREENING 04/21/2016 PIERCE PALMA MD Ot V22.1 SUPERVIS OTH NORMAL PREG 04/21/2016 PIERCE PALMA MD Ot V28.89 OTHER SPECIFIED SCREENING 04/21/2016 Ot 553.21 INCISIONAL HERNIA 04/21/2016 Ot V72.63 PRE- PROCEDURAL LABORATORY EXAMINATION 04/21/2016 Ot V74.8 SCREEN- BACTERIAL DIS NEC 04/21/2016 AMALIA LONGP Ot 789.03 ABDOMINAL PAIN, RIGHT LOWER QUADRANT [...] SCREEN- BACTERIAL DIS NEC 04/22/2016 AMALIA LONG WAREHOUSE REPRESENTATIVE Ot 789.03 ABDOMINAL PAIN, RIGHT LOWER QUADRANT [...] 05/17/2016 PIERCE PALMA MD Ot V22.1 SUPERVIS OTH NORMAL PREG 05/17/2016 PIERCE PALMA MD Ot V28.89 OTHER SPECIFIED SCREENING 05/17/2016 Ot 553.21 INCISIONAL HERNIA 05/17/2016 Ot V72.63 PRE- PROCEDURAL LABORATORY EXAMINATION 05/17/2016 Ot V74.8 SCREEN- BACTERIAL DIS NEC 05/17/2016 AMLAIA LONG Ot 789.03 ABDOMINAL PAIN, RIGHT LOWER QUADRANT 05/17/2016 ALLISON RITCHIE, SAJI Puente Ot S09.90XA UNSPECIFIED INJURY OF HEAD, INITIAL ENCO 05/17/2016 SAJI COOPER MD Ot X58.XXXA EXPOSURE TO OTHER SPECIFIED FACTORS, INI 05/17/2016 ALLISON RITCHIE, SJAI Puente Ot Y99.8 OTHER EXTERNAL CAUSE STATUS 05/17/2016 AMALIA LONG Ot 789.03 ABDOMINAL PAIN, RIGHT LOWER QUADRANT 05/18/2016 AMALIA LONG Ot 789.03 ABDOMINAL PAIN, RIGHT LOWER QUADRANT 05/27/2016 ALLISON RITCHIE, SAJI Puente Ot S09.90XA UNSPECIFIED INJURY OF HEAD, INITIAL ENCO 05/27/2016 SAJI COOPER MD Ot X58.XXXA EXPOSURE TO OTHER SPECIFIED FACTORS, INI 05/27/2016 ALLISON RITCHIE, SAJI Puente Ot Y99.8 OTHER EXTERNAL CAUSE STATUS 05/27/2016 [...] MICHAEL T Ot R10.13 EPIGASTRIC PAIN 04/05/2017 MINERVA RITCHIE, PIERCE Pena Ot V28.89 OTHER SPECIFIED SCREENING 04/05/2017 PIERCE [...] ISCHEM HEART DIS AND OTH DI 04/05/2017 IPO GARZA MD Ot Z87.19 PERSONAL HISTORY OF [...] PERSONAL HISTORY OF OTHER DISEASES OF TH 06/26/2017 PIERCE PALMA MD Ot V28.89 OTHER SPECIFIED SCREENING 06/26/2017 PIERCE PALMA MD Ot V22.1 SUPERVIS OTH NORMAL PREG 06/26/2017 PIERCE PALMA MD Ot V28.89 OTHER SPECIFIED SCREENING 06/26/2017 Ot 553.21 INCISIONAL HERNIA 06/26/2017 Ot V72.63 PRE- PROCEDURAL LABORATORY EXAMINATION 06/26/2017 Ot V74.8 SCREEN- BACTERIAL DIS NEC 06/26/2017 AMALIA LONG Ot 789.03 ABDOMINAL PAIN, RIGHT LOWER QUADRANT 06/26/2017 SAJI COOPER MD Ot S09.90XA UNSPECIFIED INJURY OF HEAD, INITIAL ENCO 06/26/2017 SAJI COOPER MD Ot X58.XXXA EXPOSURE TO OTHER SPECIFIED FACTORS, INI 06/26/2017 SAJI COOPER MD Ot Y99.8 OTHER EXTERNAL CAUSE STATUS 06/26/2017 GALINDO GARZA MDOTHY D Ot J11.1 FLU DUE TO UNIDENTIFIED INFLUENZA VIRUS 08/29/2017 VALERIA RICHMOND DO Ot G44.209 TENSION-TYPE HEADACHE, UNSPECIFIED, NOT 08/29/2017 VALERIA RICHMOND DO Ot K21.9 GASTRO-ESOPHAGEAL REFLUX DISEASE WITHOUT 08/29/2017 VALERIA RICHMOND DO Ot R51 HEADACHE 08/29/2017 VALERIA RICHMOND DO Ot Z87.19 PERSONAL HISTORY OF OTHER DISEASES OF TH 08/29/2017 VALERIA RICHMOND DO Ot Z88.0 ALLERGY STATUS TO PENICILLIN Procedures Code Description Performed By Performed On 51.23 LAPAROSCOPIC CHOLECYSTECTOMY 06/28/2012 87.53 INTRAOPER CHOLANGIOGRAM 06/28/2012 82692 URINE TEST (IN- HOUSE) 11/19/2012 06619 ROUTINE VENIPUNCTURE 02/08/2013 67327 UA OB DIP 02/08/2013 TETRA TETRA SCREEN 02/08/2013 85023 US OB - COMPLETE >14 WEEKS 03/08/2013 80159 UA OB DIP 03/08/2013 10151 UA OB DIP 04/05/2013 07582 US OB - FOLLOW UP 04/05/2013 77229 US OB - FOLLOW UP 04/19/2013 62023 UA OB DIP 04/19/2013 67334 UA LONG DIP 04/29/2013 87700 ROUTINE VENIPUNCTURE 05/17/2013 04322 CBC 05/17/2013 57865 GLUCOSE PAYAM 1 HOUR 05/17/2013 94244 UA OB DIP 05/24/2013 OBSTETRIC VISHNU, LENORE 06/11/2013 89909 UA OB DIP 06/11/2013 34113 US OB - FOLLOW UP 06/18/2013 03909 UA OB DIP 06/18/2013 05633 CULTURE GROUP B STREP VAG 06/18/2013 73.59 MANUAL ASSIST DELIV NEC 06/20/2013 32482 THERAPUTIC INJ SQ/IM 08/02/2013 J1050 DEPO PROVERA 08/02/2013 74447 TEST, URINE (IN- HOUSE) 08/02/2013 10140 TEST, URINE (IN- HOUSE) 10/25/2013 J1050 DEPO PROVERA 10/25/2013 35429 THERAPUTIC INJ SQ/IM 10/25/2013 52994 THERAPUTIC INJ SQ/IM 01/10/2014 J1050 DEPO PROVERA 01/10/2014 94537 TEST, URINE (IN- HOUSE) 01/10/2014 55841 TEST, URINE (IN- HOUSE) 04/10/2014 J1050 DEPO PROVERA 04/10/2014 72181 THERAPUTIC INJ SQ/IM 04/10/2014 Results Test Result Range Pap Lb, rfx HPV ASCU - 03/01/16 11:56 DIAGNOSIS: Comment Specimen adequacy: Comment Clinician provided ICD10: Comment Performed by: Comment . . Note: Comment . Comment Complete blood count (CBC) with automated white [...] Status Pt. Type Provider Facility Loc./Unit Complaint [id number] 08/26/2017 00:25:00 08/26/2017 01:50:00 DIS Outpatient VALERIA RICHMOND DO [facility] ER HIGH BLOOD PRESSURE,CALIX X 3 DAYS [id number] 06/26/2017 00:19:00 06/26/2017 01:00:00 DIS Emergency PIO GARZA MD [facility] ER FLU SYM [id number] 04/05/2017 01:59:00 04/05/2017 03:54:00 DIS Emergency PIO GARZA MD [facility] ER CP [id number] 04/21/2016 22:46:00 04/22/2016 00:16:00 DIS Emergency MICHAEL PAZ MD [facility] ER CHEST PAIN;LEFT ARM PAIN [id number] 08/07/2015 09:16:00 08/07/2015 23:59:59 CLS Outpatient ALLISON RITCHIE, SAJI Puente [facility] RAD CLOSED HEAD TRAUMA, LT EYE TRAMA VISUAL DISTURBAN [id number] 02/10/2015 07:09:00 02/10/2015 23:59:59 CLS Outpatient AMALIA LONG [facility] RAD ABDOMINAL PAIN RIGHT LOWER QUADRANT [id number] 07/21/2014 05:07:00 07/21/2014 05:42:00 DIS Emergency VALERIA RICHMOND DO [facility] ER SORE THROAT [id number] 11/07/2013 23:31:00 11/08/2013 00:22:00 DIS Emergency ROSA HOUSER MD [facility] ER LEFT EAR PAIN [id number] 07/02/2013 23:21:00 07/03/2013 01:59:00 DIS Emergency MICHAEL PAZ MD [facility] ER CALIX [id number] 06/19/2013 07:52:00 06/22/2013 14:35:00 DIS Inpatient PIERCE PALMA MD [facility] WS CONTRACTIONS [id number] 05/17/2013 10:15:00 05/17/2013 23:59:59 CLS Outpatient PIERCE PALMA MD [facility] RAD F/U GROWTH [id number] 04/29/2013 19:45:00 04/29/2013 21:27:00 DIS Emergency VALERIA RICHMOND DO [facility] ER COUGH [id number] 04/12/2013 13:47:00 04/12/2013 23:59:59 CLS Outpatient PIERCE PALMA MD [facility] RAD FOLLOW UP ON GROWTH [id number] 03/22/2013 15:47:00 03/22/2013 23:59:59 CLS Outpatient PIERCE PALMA MD [facility] RAD SURVEY [id number] 01/05/2013 21:51:00 01/06/2013 01:26:00 DIS Emergency MICHAEL PAZ MD [facility] ER ABD PAIN; 12 WKS PREG [id number] 09/11/2014 16:05:00 Document Registration [id number] 08/14/2014 06:00:00 Document Registration [id number] 06/24/2012 20:29:00 Document Registration [id number] 06/19/2012 02:06:00 Document Registration [id number] 04/14/2012 15:07:00 Document Registration [id number] 03/04/2016 05:06:00 Document Registration [id number] 06/26/2017 11:40:00 06/26/2017 23:59:59 CLS Outpatient SH[facility]ID JACKSON [facility] [id number] 06/13/2014 11:22:00 06/13/2014 23:59:59 CLS Outpatient CURTIS DE JESUS APRN [id number] 04/10/2014 17:28:00 04/10/2014 23:59:59 CLS Outpatient STAN FLOREZ DOLeanne Ty [id number] 03/17/2014 17:34:00 03/17/2014 23:59:59 CLS Outpatient VIKKI ANDERSONPANFILO [id number] 01/10/2014 16:40:00 01/10/2014 23:59:59 CLS Outpatient STAN FLOREZ DOLeanne Ty [id number] 12/12/2013 15:47:00 12/12/2013 23:59:59 CLS Outpatient BLOSSOM LOPEZ APRN [id number] 11/08/2013 14:22:00 11/08/2013 23:59:59 CLS Outpatient VIKKI ANDERSON PANFILO K [id number] 10/25/2013 17:01:00 10/25/2013 23:59:59 CLS Outpatient VIKKI ANDERSONPANFILO [id number] 08/02/2013 15:23:00 08/02/2013 23:59:59 CLS Outpatient BLOSSOM LOPEZ APRN [id number] 06/18/2013 15:13:00 06/18/2013 23:59:59 CLS Outpatient PIERCE PALMA MD [id number] 06/11/2013 10:23:00 06/11/2013 23:59:59 CLS Outpatient PIERCE PALMA MD [id number] 05/31/2013 14:52:00 05/31/2013 23:59:59 CLS Outpatient HEMANTH NUNES DDS [id number] 05/24/2013 15:43:00 05/24/2013 23:59:59 CLS Outpatient PIERCE PALMA MD [id number] 05/17/2013 10:59:00 05/17/2013 23:59:59 CLS Outpatient BLOSSOM LOPEZ APRN [id number] 04/29/2013 09:00:00 04/29/2013 23:59:59 CLS Outpatient BLOSSOM LOPEZ APRN [id number] 04/19/2013 15:31:00 04/19/2013 23:59:59 CLS Outpatient PANFILO FLOREZ DO [id number] 04/05/2013 15:51:00 04/05/2013 23:59:59 CLS Outpatient PANFILO FLOREZ DO [id number] 03/08/2013 14:39:00 03/08/2013 23:59:59 CLS Outpatient PANFILO FLOREZ DO [id number] 02/08/2013 14:24:00 Document Registration [id number] 12/07/2012 13:42:00 Document Registration [id number] 11/19/2012 10:36:00 Document Registration [id number] 10/12/2012 11:24:02 Document Registration [id number] 02/10/2015 07:12:31 ACT Document Registration
[2017-09-19] MEDS ORDERED: RX-HYDROXYZINE PAMOATE 25 MG CAP #4 PO STA (00:14)
--- NOTE | 2017-09-19 00:21 | ED Headache ---
General Chief Complaint: Head/Cervical Problems Stated Complaint: R SIDE NUMBNESS Nursing Triage Note: PATIENT STARTED HAVING PAIN IN HEAD AND A FULL FEELING IN FACE AND EYE (RIGHT SIDE) 2 HRS AGO. FEELING WEAKNESS AND SHAKY ON RIGHT SIDE EXTREMITIES. Nursing Sepsis Screen: No Definite Risk Source: patient, family History of Present Illness Date Seen by Provider: Sep 19, 2017 Time Seen by Provider: 00:15 Initial Comments The patient presents to ER by private conveyance with her friend who interprets from Danish to Mongolian. She describes for the past hour or 2 she has been having some tingling feeling in her right face as well as shaking all over her body. She says 3 months ago she was started on sertraline for depression, decreased appetite and decreased mood and activity. She's been tolerating it well so far. She does not have a history of migraine headaches or headaches but she did take a couple ibuprofen and by the time she was seen in the ER her symptoms had abated. She was not having any weakness, loss of bowel or bladder, numbness or falls. She denies any nausea or shortness of breath. She says she still feels a little puffy in her right cheek like is a little harder than her left cheek that she's not having any pain in her teeth gums or difficulty masticating. Allergies and Home Medications Allergies Coded Allergies: Penicillins (Verified Allergy, Unknown, 06/28/12) FROM UNCODED ALLERGY LIST Home Medications Butalb/Acetaminophen/Caffeine 1 Each Capsule, 1-2 EACH PO Q6H PRN for HEADACHE Prescribed by: VALERIA RICHMOND on 08/26/17 0140 Ibuprofen 200 Mg Capsule, 400-600 MG PO Q6H PRN for HEADACHE, (Reported) Patient Home Medication List Home Medication List Reviewed: Yes Review of Systems Constitutional: No chills, No diaphoresis Eyes: Denies Blindness, Denies Blurred Vision Ears, Nose, Mouth, Throat: denies ear pain, denies ear discharge Respiratory: No cough, No short of breath Cardiovascular: No chest pain, No Hx of Intervention, No palpitations, No syncope, No vascular heart diseas Gastrointestinal: No abdominal pain, No constipation, No diarrhea Genitourinary: No discharge, No dysuria : No (oral contraceptives) Musculoskeletal: No back pain, No joint pain Psychiatric/Neurological: See HPI, Depressed, Paresthesia Past Cjfusze-Ockbyk-Shbbcw Hx Patient Social History Alcohol Use: Denies Use Number of Drinks Today: AA Alcohol Beverage of Choice: Beer Recreational Drug Use: No Smoking Status: Never a Smoker 2nd Hand Smoke Exposure: No Recent Foreign Travel: No Contact w/Someone Who Travel: No Recent Infectious Disease Expo: No Recent Hopitalizations: No Immunizations Up To Date Tetanus Booster (TDap): Unknown Date of Influenza Vaccine: Feb 21, 2014 Seasonal Allergies Seasonal Allergies: No Past Medical History Surgeries: Yes (HERNIA REPAIR) Abdominal, Gallbladder Respiratory: No Cardiac: No (15 years ago reports an arrythmia) Neurological: No Reproductive Disorders: No (2 CHILDREN) Sexually Transmitted Disease: No HIV/AIDS: No Genitourinary: No Gastrointestinal: Yes Gastroesophageal Reflux Musculoskeletal: No Endocrine: No HEENT: No Cancer: No Psychosocial: No Integumentary: No Blood Disorders: No Adverse Reaction/Blood Tranf: No Family Medical History Family history: Diabetes mellitus 03 MOTHER Family history: Hypertension 03 FATHER No Family History of: Abdominal aortic aneurysm Liberty's disease Alcoholism Aphasia Cancer Cancer of colon Cataract Chest pain Congenital heart disease Congestive heart failure Cystic fibrosis Dementia Dysphagia Family history: Allergy Family history: Alzheimer's disease Family history: Arthritis Family history: Asthma Family history: Breast disease Family history: Cardiovascular disease Family history: Coronary thrombosis Family history: Gastrointestinal disease Family history: Glaucoma Family history: Osteoporosis Family history: Thyroid disorder Headache Hearing loss Heart disease Hereditary disease History of - anemia History of - disorder History of - respiratory disease History of drug abuse Human immunodeficiency virus (HIV) seropositivity Hypercholesterolemia Infertile Kidney disease Malignant neoplasm of lung Myocardial infarction Parkinson's disease Prostate cancer Psychotic disorder Seizure disorder Stroke Tuberculosis Visual impairment Heart Disease, Diabetes Physical Exam Vital Signs Vital Signs - First Documented 09/18/17 22:37 Temp 98.3 Pulse 83 Resp 18 B/P (MAP) 141/88 (105) Pulse Ox 99 Capillary Refill : Less Than 3 Seconds General Appearance: WD/WN, no apparent distress HEENT: PERRL/EOMI, normal ENT inspection, pharynx normal, other (bilateral tympanic membranes unable to be seen due to cerumen impaction. Nontender to palpation or manipulation. Teeth and gums unremarkable. Cavity in the upper right molars noted.) Neck: non-tender, full range of motion, supple, normal inspection Cardiovascular: normal peripheral pulses, regular rate, rhythm, no edema Respiratory: chest non-tender, lungs clear, normal breath sounds Gastrointestinal: normal bowel sounds, non tender, soft Psychiatric: alert, oriented x 3 Crainal Nerves: normal hearing, normal speech, PERRL, other (cranial nerves II through XII normal.) Coordination/Gait: normal finger to nose, normal gait Motor/Sensory: no motor deficit, no sensory deficit, no pronator drift Skin: normal color, warm/dry Progress/Results/Core Measures My Orders Orders - PRITI OLIVER Rx-Hydroxyzine Pamoate (Rx-Vistaril) (09/19/17 00:14) Vital Signs/I&O 09/18/17 22:37 Temp 98.3 Pulse 83 Resp 18 B/P (MAP) 141/88 (105) Pulse Ox 99 Blood Pressure Mean: 105 Progress Note : Time: 00:19 Progress Note Paresthesias of the right face without evidence of zoster. She does not have the risk factors for CVA. Her headache resolved with ibuprofen. Her teeth, gums and sinuses are unremarkable to examination. Her symptoms were gone by the time we saw her. Given her recent starting on sertraline she may be describing a panic attack. We discussed doing further workup here versus seeing her clinician. She would like to follow up this week. Give her some Vistaril to try. Departure Impression Primary Impression: Paresthesia Disposition: 01 HOME, SELF-CARE Condition: Stable Departure-Patient Inst. Decision time for Depature: 00:20 Referrals: [facility] (PCP/Family) Primary Care Physician Patient Instructions: Anxiety, Adult (DC) Add. Discharge Instructions: Use the Vistaril at the first sign of your symptoms one capsule by mouth every 6 hours as needed. Return to the ER if you begin to have slurred speech, facial droop, weakness, numbness or other worrisome symptoms. All discharge instructions reviewed with patient and/or family. Voiced understanding. Scripts Hydroxyzine Pamoate (Vistaril) 25 Mg Capsule 25 MG PO Q6H Y for ANXIETY for 14 Days, #10 CAP 0 Refills Prov: PRITI OLIVER 09/19/17 Copy Copies To 1: PANFILO FLOREZ DO PRITI OLIVER Sep 19, 2017 00:20
[2017-09-19] MEDS ORDERED: HYDR25CA PO (00:23)
[2017-09-19 00:29] VITALS: BP 124/76
== END 2017-09-19 00:29 | disposition home or self-care (01) ==
LOC: EDUNIT# 22:30 → ER 22:33
DX: R20.2 Paresthesia of skin (principal); F32.9 Major depressive disorder, single episode, unspecified; K21.9 Gastro-esophageal reflux disease without esophagitis; Z88.0 Allergy status to penicillin; Z87.19 Personal history of other diseases of the digestive system
CPT/HCPCS: 99283

== ENCOUNTER 2018-08-15 21:00 | Emergency (ER) | payer SELFPAY ==
[~2018-08-15] VITALS: Ht 160 cm; Wt 78.0 kg
[~2018-08-15 21:00] MED LIST changes: +HYDR25CA PO; +IBUP-2185 PO; -IBUP200C75 PO
[2018-08-15] MEDS ORDERED: LACTATED RINGERS 1,000 ML IV ONE ×2 (21:16→21:58)
[2018-08-15 21:33] VITALS: BP_SYST 124; BP_SYST 128; BP_SYST 137; BP_DIAS 73; BP_DIAS 80; BP_DIAS 97
[2018-08-15 21:34] LABS: BILIRUBIN,URINE NEGATIVE (NEGATIVE); CLARITY,URINE CLEAR; COLOR,URINE YELLOW; GLUCOSE, URINE (UA) NEGATIVE (NEGATIVE); KETONES,URINE NEGATIVE (NEGATIVE); LEUKOCYTE ESTERASE ,URINE NEGATIVE (NEGATIVE); NITRITE,URINE NEGATIVE (NEGATIVE); PH,URINE 7 (5-9); PROTEIN,URINE NEGATIVE (NEGATIVE); UROBILINOGEN,URINE NORMAL (NORMAL)
[2018-08-15 21:42] LABS: BASOPHILS % (AUTO) 0 % (0-10); EOSINOPHILS # (AUTO) 0.3 10^3/uL (0.0-0.3); EOSINOPHILS % (AUTO) 2 % (0-10); HEMATOCRIT 36 % (35-52); HEMOGLOBIN 12.2 G/DL (11.5-16.0); LYMPHOCYTES # (AUTO) 2.8 X 10^3 (1.0-4.0); LYMPHOCYTES % (AUTO) 19 % (12-44); MEAN CORPUSCULAR HEMOGLOBIN 31 PG (25-34); MEAN CORPUSCULAR HGB CONC 34 G/DL (32-36); MEAN CORPUSCULAR VOLUME 91 FL (80-99); MEAN PLATELET VOLUME 10.7 FL (7.4-10.4); MONOCYTES # (AUTO) 1.1 X 10^3 (0.0-1.0); MONOCYTES % (AUTO) 8 % (0-12); NEUTROPHILS # (AUTO) 10.3 X 10^3 (1.8-7.8); NEUTROPHILS % (AUTO) 71 % (42-75); PLATELET COUNT 288 10^3/uL (130-400); RED CELL DISTRIBUTION WIDTH 13.2 % (10.0-14.5); WHITE BLOOD COUNT 14.5 10^3/uL (4.3-11.0)
[2018-08-15 21:45] LABS: BACTERIA,URINE TRACE /HPF; WBC,URINE RARE /HPF
[2018-08-15] MEDS ORDERED: ONDANSETRON 4 MG/2 ML (SDV) Z0FRAN IVP ONE (22:00)
[2018-08-15 22:07] LABS: ALANINE AMINOTRANSFERASE 10 U/L (0-55); ALKALINE PHOSPHATASE 60 U/L (40-136); BILIRUBIN,TOTAL 0.2 MG/DL (0.1-1.0); BUN/CREATININE RATIO 14; CALCIUM 9.6 MG/DL (8.5-10.1); CARBON DIOXIDE 21 MMOL/L (21-32); CHLORIDE 103 MMOL/L (98-107); CREATININE SERUM 0.58 MG/DL (0.60-1.30); GFR ESTIMATED > 60; GLUCOSE 93 MG/DL (70-105); POTASSIUM 3.8 MMOL/L (3.6-5.0); SODIUM 135 MMOL/L (135-145); TOTAL PROTEIN 7.2 GM/DL (6.4-8.2)
[2018-08-15 22:37] LABS: BAND NEUTROPHILS 1 %; BASOPHILS % (MANUAL) 0 %; EOSINOPHILS % (MANUAL) 3 %; LYMPHOCYTES % (MANUAL) 21 %; MONOCYTES % (MANUAL) 3 %; NEUTROPHILS % (MANUAL) 72 %; RBC MORPH NORMAL
[2018-08-15] MEDS ORDERED: DOXY1TAB3 PO (22:49)
--- NOTE | 2018-08-15 22:49 | ED GI ---
General Chief Complaint: Abdominal/GI Problems Stated Complaint: VOMITING,11 WKS Nursing Triage Note: NAUSEA/VOMITTING, LOWER ABDOMINAL PAIN SINCE NOON. REPORTS BEING 11 WEEKS . Sepsis Screen: No Definite Risk Allergies and Home Medications Allergies Coded Allergies: Penicillins (Verified Allergy, Unknown, 06/28/12) FROM UNCODED ALLERGY LIST Home Medications Doxylamine/Pyridoxine HCl 1 Each Tablet.dr, 2 EACH PO HS Prescribed by: VALERIA RICHMOND on 08/15/18 2606 Past Lbnebxb-Itxqlg-Znnrap Hx Patient Social History Alcohol Use: Denies Use Number of Drinks Today: AA Alcohol Beverage of Choice: Beer Recreational Drug Use: No Smoking Status: Never a Smoker 2nd Hand Smoke Exposure: No Recent Foreign Travel: No Contact w/Someone Who Travel: No Recent Infectious Disease Expo: No Recent Hopitalizations: No Immunizations Up To Date Tetanus Booster (TDap): Unknown Date of Influenza Vaccine: Feb 21, 2014 Seasonal Allergies Seasonal Allergies: No Past Medical History Surgeries: Yes (HERNIA REPAIR) Abdominal, Gallbladder Respiratory: No Cardiac: No (15 years ago reports an arrythmia) Neurological: No : Yes Last Menstrual Period: Jun 06, 2019 Reproductive Disorders: No (2 CHILDREN) Sexually Transmitted Disease: No HIV/AIDS: No Genitourinary: No Gastrointestinal: Yes Gastroesophageal Reflux Musculoskeletal: No Endocrine: No HEENT: No Cancer: No Psychosocial: No Integumentary: No Blood Disorders: No Adverse Reaction/Blood Tranf: No Family Medical History Family history: Diabetes mellitus 03 MOTHER Family history: Hypertension 03 FATHER No Family History of: Abdominal aortic aneurysm Lynn's disease Alcoholism Aphasia Cancer Cancer of colon Cataract Chest pain Congenital heart disease Congestive heart failure Cystic fibrosis Dementia Dysphagia Family history: Allergy Family history: Alzheimer's disease Family history: Arthritis Family history: Asthma Family history: Breast disease Family history: Cardiovascular disease Family history: Coronary thrombosis Family history: Gastrointestinal disease Family history: Glaucoma Family history: Osteoporosis Family history: Thyroid disorder Headache Hearing loss Heart disease Hereditary disease History of - anemia History of - disorder History of - respiratory disease History of drug abuse Human immunodeficiency virus (HIV) seropositivity Hypercholesterolemia Infertile Kidney disease Malignant neoplasm of lung Myocardial infarction Parkinson's disease Prostate cancer Psychotic disorder Seizure disorder Stroke Tuberculosis Visual impairment Heart Disease, Diabetes Physical Exam Vital Signs Vital Signs - First Documented 08/15/18 21:08 Temp 97.0 Pulse 94 Resp 18 B/P (MAP) 126/77 (93) Pulse Ox 99 O2 Delivery Room Air Capillary Refill : Less Than 3 Seconds Height/Weight/BMI Height: 5'3.00" Weight: 172lbs. 0oz. 78.211825sy; 25.99 BMI Method:Stated Progress/Results/Core Measures Results/Orders Lab Results Laboratory Tests Test 08/15/18 21:15 08/15/18 21:30 Range/Units Urine Color YELLOW Urine Clarity CLEAR Urine pH 7 5-9 Urine Specific [place] 1.010 L 1.016-1.022 Urine Protein NEGATIVE NEGATIVE Urine Glucose (UA) NEGATIVE NEGATIVE Urine Ketones NEGATIVE NEGATIVE Urine Nitrite NEGATIVE NEGATIVE Urine Bilirubin NEGATIVE NEGATIVE Urine Urobilinogen NORMAL NORMAL MG/DL Urine Leukocyte Esterase NEGATIVE NEGATIVE Urine RBC (Auto) NEGATIVE NEGATIVE Urine RBC NONE /HPF Urine WBC RARE /HPF Urine Squamous Epithelial Cells 5-10 /HPF Urine Crystals NONE /LPF Urine Bacteria TRACE /HPF Urine Casts NONE /LPF Urine Mucus NEGATIVE /LPF Urine Culture Indicated NO White Blood Count 14.5 H 4.3-11.0 10^3/uL Red Blood Count 3.92 L 4.35-5.85 10^6/uL Hemoglobin 12.2 11.5-16.0 G/DL Hematocrit 36 35-52 % Mean Corpuscular Volume 91 80-99 FL Mean Corpuscular Hemoglobin 31 25-34 PG Mean Corpuscular Hemoglobin Concent 34 32-36 G/DL Red Cell Distribution Width 13.2 10.0-14.5 % Platelet Count 288 130-400 10^3/uL Mean Platelet Volume 10.7 H 7.4-10.4 FL Neutrophils (%) (Auto) 71 42-75 % Lymphocytes (%) (Auto) 19 12-44 % Monocytes (%) (Auto) 8 0-12 % Eosinophils (%) (Auto) 2 0-10 % Basophils (%) (Auto) 0 0-10 % Neutrophils # (Auto) 10.3 H 1.8-7.8 X 10^3 Lymphocytes # (Auto) 2.8 1.0-4.0 X 10^3 Monocytes # (Auto) 1.1 H 0.0-1.0 X 10^3 Eosinophils # (Auto) 0.3 0.0-0.3 10^3/uL Basophils # (Auto) 0.0 0.0-0.1 10^3/uL Neutrophils % (Manual) 72 % Lymphocytes % (Manual) 21 % Monocytes % (Manual) 3 % Eosinophils % (Manual) 3 % Basophils % (Manual) 0 % Band Neutrophils 1 % Blood Morphology Comment NORMAL Sodium Level 135 135-145 MMOL/L Potassium Level 3.8 3.6-5.0 MMOL/L Chloride Level 103 98-107 MMOL/L Carbon Dioxide Level 21 21-32 MMOL/L Anion Gap 11 5-14 MMOL/L Blood Urea Nitrogen 8 7-18 MG/DL Creatinine 0.58 L 0.60-1.30 MG/DL Estimat Glomerular Filtration Rate > 60 BUN/Creatinine Ratio 14 Glucose Level 93 70-105 MG/DL Calcium Level 9.6 8.5-10.1 MG/DL Corrected Calcium 9.6 8.5-10.1 MG/DL Total Bilirubin 0.2 0.1-1.0 MG/DL Aspartate Amino Transf (AST/SGOT) 13 5-34 U/L Alanine Aminotransferase (ALT/SGPT) 10 0-55 U/L Alkaline Phosphatase 60 40-136 U/L Total Protein 7.2 6.4-8.2 GM/DL Albumin 4.0 3.2-4.5 GM/DL Human Chorionic Gonadotropin, Quant [id number] H <5 MIU/ML My Orders Orders - VALERIA RICHMOND DO Saline Lock/Iv-Start (08/15/18 21:16) Orthostatic Vital Signs (Adult (08/15/18 21:16) Cbc With Automated Diff (08/15/18 21:16) Comprehensive Metabolic Panel (08/15/18 21:16) Hcg,Quantitative (08/15/18 21:16) Saline Lock/Iv-Start (08/15/18 21:16) Lactated Ringers (Lr 1000 Ml Iv Solution (08/15/18 21:16) Ua Culture If Indicated (08/15/18 21:17) Manual Differential (08/15/18 21:30) Heart Tones (08/15/18 21:58) Saline Lock/Iv-Start (08/15/18 21:58) Lactated Ringers (Lr 1000 Ml Iv Solution (08/15/18 21:58) Ondansetron Injection (Zofran Injectio (08/15/18 22:00) Medications Given in ED Current Medications Medications Dose Ordered Sig/Megan Route Start Time Stop Time Status Last Admin Dose Admin Lactated Ringer's 1,000 ml @ 0 mls/hr Q0M ONCE IV 08/15/18 21:16 08/15/18 21:18 DC 08/15/18 21:29 0 MLS/HR Lactated Ringer's 1,000 ml @ 0 mls/hr Q0M ONCE IV 08/15/18 21:58 08/15/18 22:00 DC 08/15/18 22:05 0 MLS/HR Ondansetron HCl 8 mg ONCE ONCE IVP 08/15/18 22:00 08/15/18 22:01 DC 08/15/18 22:05 8 MG Vital Signs/I&O 08/15/18 08/15/18 21:08 21:33 Temp 97.0 Pulse 94 91 94 90 Resp 18 B/P (MAP) 126/77 (93) 124/73 (90) 137/97 (110) 128/80 (96) Pulse Ox 99 O2 Delivery Room Air Blood Pressure Mean: 96 Progress Progress Note : Progress Note NO VOMITING DURING ER STAY--NAUSEA IS MUCH BETTER, STILL A LITTLE DIZZY BUT IS BETTER. VOIDED X 3 DURING ER STAY ORTHOSTATICS NORMAL PT TOLERATING ICE CHIPS PRIOR TO DISMISSAL PT FEELS COMFORTABLE GOING HOME Departure Impression Primary Impression: Nausea and vomiting during prior to 22 weeks gestation Disposition: 01 HOME, SELF-CARE Condition: Improved Departure-Patient Inst. Referrals: [facility]/ (PCP) Primary Care Physician JEREMIAS VERDUGO DO (Family) Primary Care Physician Patient Instructions: Nausea and Vomiting of (DC) Add. Discharge Instructions: CLEAR LIQUIDS, SIPS AT A TIME--WATER, BROTH, JELLO, GATORADE WHEN YOUR NAUSEA IS BETTER, ADD BRATS DIET TO CLEAR LIQUIDS--BANANAS, RICE, APPLESAUCE, TOAST, SALTINES TYLENOL NEEDED FOR PAIN FOLLOW UP WITH YOUR DR IN 1-2 DAYS IF NO BETTER All discharge instructions reviewed with patient and/or family. Voiced understanding. Scripts Ondansetron (Ondansetron Odt) 4 Mg Tab.rapdis 4 MG PO Q4H for Nausea/Vomiting, #10 TAB Prov: VALERIA RICHMOND DO 08/15/18 Doxylamine/Pyridoxine HCl (Dariel Brewer 10-10 mg Tablet) 1 Each Tablet. 2 EACH PO HS, #14 TAB Prov: VALERIA RICHMOND DO 08/15/18 VALERIA RICHMOND DO Aug 15, 2018 22:49
[2018-08-15] MEDS ORDERED: RX-ONDANSETRON 4 MG ODT (ZOFRAN) PPK #4 PO STA (22:53)
[2018-08-15] MEDS ORDERED: ONDA4TAB11 PO (22:53)
[2018-08-15 23:09] VITALS: BP 104/61
== END 2018-08-15 23:11 | disposition home or self-care (01) ==
LOC: EDUNIT# 21:00 → ER 21:01
DX: O21.9 Vomiting of pregnancy, unspecified (principal); O99.611 Diseases of the digestive system complicating pregnancy, first trimester; K21.9 Gastro-esophageal reflux disease without esophagitis; Z88.0 Allergy status to penicillin; Z82.49 Family history of ischemic heart disease and other diseases of the circulatory system; Z98.890 Other specified postprocedural states; Z3A.11 11 weeks gestation of pregnancy
CPT/HCPCS: 36415; 80053; 81000; 84702; 85007; 85027

== ENCOUNTER 2018-10-01 20:35 | Emergency (ER) | payer SELFPAY ==
[~2018-10-01] VITALS: Ht 157.5 cm; Wt 79.8 kg
[~2018-10-01 20:35] MED LIST changes: +DOXY1TAB3 PO; +ONDA4TAB11 PO
--- OUTSIDE RECORDS SUMMARY | 2018-10-01 20:43 | XMS REPORT | Continuity of Care Document ---
Author Organization Unknown Address Unknown Allergies Active Description Code Type Severity Reaction Onset Reported/Identified Relationship to Patient Clinical Status Yes Penicillins [id number] Drug Allergy Unknown N/A 06/28/2012 Medications There [...] 07/03/2013 MICHAEL PAZ MD Ot 784.0 HEADACHE 11/08/2013 ROSA HOUSER MD Ot 380.4 IMPACTED CERUMEN 11/08/2013 ROSA HOUSER MD Ot 388.70 OTALGIA NOS 07/21/2014 BASILIO ANDERSON VALERIA Ty Ot 462 ACUTE PHARYNGITIS 07/21/2014 PIERCE PALMA [...] RIGHT LOWER QUADRANT 04/21/2016 ALLISON RITCHIE, SAJI Peunte Ot S09.90XA UNSPECIFIED INJURY OF HEAD, INITIAL ENCO 04/21/2016 ALLISON RITCHIE, SAJI Puente Ot X58.XXXA EXPOSURE TO OTHER SPECIFIED FACTORS, INI 04/21/2016 ALLISON RITCHIE, SAJI Puente Ot Y99.8 OTHER EXTERNAL CAUSE STATUS 04/22/2016 JACKSON RITCHIE, MICHAEL Mitchell Ot K29.70 GASTRITIS, UNSPECIFIED, WITHOUT BLEEDING 04/22/2016 JACKSON RITCHIE, MICHAEL Mitchell Ot M79.622 PAIN IN LEFT UPPER ARM 04/22/2016 JACKSON RITCHIE, MICHAEL Mitchell Ot R07.89 OTHER CHEST PAIN 04/22/2016 MICHAEL PAZ MD Ot R07.9 CHEST PAIN, UNSPECIFIED 04/22/2016 JACKSON RITCHIE, MICHAEL Mitchell Ot R10.13 EPIGASTRIC PAIN 04/22/2016 PIERCE PALMA MD Ot V28.89 OTHER SPECIFIED SCREENING 04/22/2016 PIERCE PALMA MD Ot V22.1 SUPERVIS OTH NORMAL PREG 04/22/2016 PIERCE PALMA MD Ot V28.89 OTHER SPECIFIED SCREENING 04/22/2016 Ot 553.21 INCISIONAL HERNIA 04/22/2016 Ot V72.63 PRE- PROCEDURAL LABORATORY EXAMINATION 04/22/2016 Ot V74.8 SCREEN- BACTERIAL DIS NEC 04/22/2016 AMALIA LONG EMBLEM DRAWER IN Ot 789.03 ABDOMINAL PAIN, RIGHT LOWER QUADRANT [...] Ot V28.89 OTHER SPECIFIED SCREENING 05/17/2016 PIERCE APLMA MD Ot V22.1 SUPERVIS OTH NORMAL PREG 05/17/2016 PIERCE PALMA MD Ot V28.89 OTHER SPECIFIED SCREENING 05/17/2016 Ot 553.21 INCISIONAL HERNIA 05/17/2016 Ot V72.63 PRE- PROCEDURAL LABORATORY EXAMINATION 05/17/2016 Ot V74.8 SCREEN- BACTERIAL DIS NEC 05/17/2016 AMALIA LONG EMBLEM DRAWER IN Ot 789.03 ABDOMINAL PAIN, RIGHT LOWER QUADRANT [...] UNSPECIFIED INJURY OF HEAD, INITIAL ENCO 04/05/2017 ALLISON RITCHIE, SAJI Puente Ot X58.XXXA EXPOSURE TO OTHER SPECIFIED FACTORS, INI 04/05/2017 ALLISON RITCHIE, SAJI Puente Ot Y99.8 OTHER EXTERNAL CAUSE STATUS 04/07/2017 [...] 789.03 ABDOMINAL PAIN, RIGHT LOWER QUADRANT 06/26/2017 ALLISON RITCHIE, SAJI Puente Ot S09.90XA UNSPECIFIED INJURY OF HEAD, INITIAL ENCO 06/26/2017 ALLISON RITCHIE, SAJI Puente Ot X58.XXXA EXPOSURE TO OTHER SPECIFIED FACTORS, INI 06/26/2017 ALLISON RITCHIE, SAJI Puente Ot Y99.8 OTHER EXTERNAL CAUSE STATUS 06/26/2017 KAYLA RITCHIE, PIO Echols Ot J11.1 FLU DUE TO UNIDENTIFIED INFLUENZA VIRUS 08/26/2017 BASILIO DO, VALERIA K Ot G44.209 TENSION-TYPE HEADACHE, UNSPECIFIED, NOT 08/26/2017 BASILIO DO, VALERIA K Ot K21.9 GASTRO-ESOPHAGEAL REFLUX DISEASE WITHOUT 08/26/2017 BASILIO DO, VALERIA K Ot R51 HEADACHE 08/26/2017 BASILIO DO, VALERIA K Ot Z87.19 PERSONAL HISTORY OF OTHER DISEASES OF TH 08/26/2017 BASILIO DO, VALERIA K Ot Z88.0 ALLERGY STATUS TO PENICILLIN 08/29/2017 BASILIO DO, VALERIA K Ot G44.209 TENSION-TYPE HEADACHE, UNSPECIFIED, NOT 08/29/2017 BASILIO DO, VALERIA K Ot K21.9 GASTRO-ESOPHAGEAL REFLUX DISEASE WITHOUT 08/29/2017 BASILIO DO, VALERIA K Ot R51 HEADACHE 08/29/2017 BASILIO DO, VALERIA K Ot Z87.19 PERSONAL HISTORY OF OTHER DISEASES OF 08/29/2017 BASILIO DO, VALERIA K Ot Z88.0 ALLERGY STATUS TO PENICILLIN 09/19/2017 PRITI OLIVER MD Ot F32.9 MAJOR DEPRESSIVE DISORDER, SINGLE EPISOD 09/19/2017 PRITI OLIVER MD Ot K21.9 GASTRO-ESOPHAGEAL REFLUX DISEASE WITHOUT 09/19/2017 PRITI OLIVER MD Ot R20.2 PARESTHESIA OF SKIN 09/19/2017 PRITI OLIVER MD Ot Z87.19 PERSONAL HISTORY OF OTHER DISEASES OF 09/19/2017 PRITI OLIVER MD Ot Z88.0 ALLERGY STATUS TO PENICILLIN 09/20/2017 PRITI OLIVER MD Ot F32.9 MAJOR DEPRESSIVE DISORDER, SINGLE EPISOD 09/20/2017 PRITI OLIVER MD Ot K21.9 GASTRO-ESOPHAGEAL REFLUX DISEASE WITHOUT 09/20/2017 PRITI OLIVER MD Ot R20.2 PARESTHESIA OF SKIN 09/20/2017 PRITI OLIVER MD Ot Z87.19 PERSONAL HISTORY OF OTHER DISEASES OF 09/20/2017 PRITI OLIVER MD Ot Z88.0 ALLERGY STATUS TO PENICILLIN 08/15/2018 BASILIO DO VALERIA K Ot K21.9 GASTRO-ESOPHAGEAL REFLUX DISEASE WITHOUT 08/15/2018 BASILIO DO, VALERIA K Ot O21.9 VOMITING OF , UNSPECIFIED 08/15/2018 BASILIO DO, VALERIA K Ot O99.611 DISEASES OF THE DGSTV SYS COMP 08/15/2018 BASILIO DO, VALERIA K Ot Z3A.11 11 WEEKS GESTATION OF 08/15/2018 BASILIO DO, VALERIA K Ot Z82.49 FAMILY HX OF ISCHEM HEART DIS AND OTH DI 08/15/2018 BASILIO DO, VALERIA K Ot Z88.0 ALLERGY STATUS TO PENICILLIN 08/15/2018 BASILIO DO, VALERIA K Ot Z98.890 OTHER SPECIFIED POSTPROCEDURAL STATES 08/17/2018 BASILIO DO, VALERIA K Ot K21.9 GASTRO-ESOPHAGEAL REFLUX DISEASE WITHOUT 08/17/2018 BASILIO DO, VALERIA K Ot O21.9 VOMITING OF , UNSPECIFIED 08/17/2018 BASILIO DO, VALERIA K Ot O99.611 DISEASES OF THE DGSTV SYS COMP 08/17/2018 BASILIO DO, VALERIA K Ot Z3A.11 11 WEEKS GESTATION OF 08/17/2018 BASILIO DO, VALERIA K Ot Z82.49 FAMILY HX OF ISCHEM HEART DIS AND OTH DI 08/17/2018 BASILIO DO, VALERIA K Ot Z88.0 ALLERGY STATUS TO PENICILLIN 08/17/2018 BASILIO DO, VALERIA K Ot Z98.890 OTHER SPECIFIED POSTPROCEDURAL STATES Procedures Code Description Performed By Performed On 51.23 LAPAROSCOPIC CHOLECYSTECTOMY 06/28/2012 87.53 INTRAOPER CHOLANGIOGRAM 06/28/2012 73.59 MANUAL ASSIST DELIV NEC 06/20/2013 Results Test Result Range Pap Lb, rfx [...] plasma choriogonadotropin ( test) detection NEGATIVE NEGATIVE Complete urinalysis with reflex to culture - 08/15/18 21:15 Urine color determination YELLOW NRG Urine clarity determination CLEAR NRG Urine pH measurement by test strip 7 5-9 Specific gravity of urine by test strip 1.010 1.016- 1.022 Urine protein assay by test strip, semi-quantitative NEGATIVE NEGATIVE Urine glucose detection by automated test strip NEGATIVE NEGATIVE Erythrocytes detection in urine sediment by light microscopy NEGATIVE NEGATIVE Urine ketones detection by automated test strip NEGATIVE NEGATIVE Urine nitrite detection by test strip NEGATIVE NEGATIVE Urine total bilirubin detection by test strip NEGATIVE NEGATIVE Urine urobilinogen measurement by automated test strip (mass/volume) NORMAL NORMAL Urine leukocyte esterase detection by dipstick NEGATIVE NEGATIVE Automated urine sediment erythrocyte count by microscopy (number/high power field) NONE NRG Automated urine sediment leukocyte count by microscopy (number/high power field ) RARE NRG Bacteria detection in urine sediment by light microscopy TRACE NRG Squamous epithelial cells detection in urine sediment by light microscopy 5-10 NRG Crystals detection in urine sediment by light microscopy NONE NRG Casts detection in urine sediment by light microscopy NONE NRG Mucus detection in urine sediment by light microscopy NEGATIVE NRG Complete urinalysis with reflex to culture NO NRG Complete blood count (CBC) with automated white blood cell (WBC) differential - 08/15/18 21:30 Blood leukocytes automated count (number/volume) 14.5 10*3/uL 4.3-11.0 Blood erythrocytes automated count (number/volume) 3.92 10*6/uL 4.35-5.85 Venous blood hemoglobin measurement (mass/volume) 12.2 g/dL 11.5-16.0 Blood hematocrit (volume fraction) 36 % 35-52 Automated erythrocyte mean corpuscular volume 91 [foz_us] 80-99 Automated erythrocyte mean corpuscular hemoglobin (mass per erythrocyte) 31 pg 25-34 Automated erythrocyte mean corpuscular hemoglobin concentration measurement ( mass/volume) 34 g/dL 32-36 Automated erythrocyte distribution width ratio 13.2 % 10.0-14.5 Automated blood platelet count (count/volume) 288 10*3/uL 130-400 Automated blood platelet mean volume measurement 10.7 [foz_us] 7.4-10.4 Automated blood neutrophils/100 leukocytes 71 % 42-75 Automated blood lymphocytes/100 leukocytes 19 % 12-44 Blood monocytes/100 leukocytes 8 % 0-12 Automated blood eosinophils/100 leukocytes 2 % 0-10 Automated blood basophils/100 leukocytes 0 % 0-10 Blood neutrophils automated count (number/volume) 10.3 10*3 1.8-7.8 Blood lymphocytes automated count (number/volume) 2.8 10*3 1.0-4.0 Blood monocytes automated count (number/volume) 1.1 10*3 0.0-1.0 Automated eosinophil count 0.3 10*3/uL 0.0-0.3 Automated blood basophil count (count/volume) 0.0 10*3/uL 0.0-0.1 Comprehensive metabolic panel - 08/15/18 21:30 Serum or plasma sodium measurement (moles/volume) 135 mmol/L 135-145 Serum or plasma potassium measurement (moles/volume) 3.8 mmol/L 3.6-5.0 Serum or plasma chloride measurement (moles/volume) 103 mmol/L 98-107 Carbon dioxide 21 mmol/L 21-32 Serum or plasma anion gap determination (moles/volume) 11 mmol/L 5-14 Serum or plasma urea nitrogen measurement (mass/volume) 8 mg/dL 7-18 Serum or plasma creatinine measurement (mass/volume) 0.58 mg/dL 0.60-1.30 Serum or plasma urea nitrogen/creatinine mass ratio 14 NRG Serum or plasma creatinine measurement with calculation of estimated glomerular filtration rate > NRG Serum or plasma glucose measurement (mass/volume) 93 mg/dL 70-105 Serum or plasma calcium measurement (mass/volume) 9.6 mg/dL 8.5-10.1 Serum or plasma total bilirubin measurement (mass/volume) 0.2 mg/dL 0.1-1.0 Serum or plasma alkaline phosphatase measurement (enzymatic activity/volume) 60 U/L 40-136 Serum or plasma aspartate aminotransferase measurement (enzymatic activity/ volume) 13 U/L 5-34 Serum or plasma alanine aminotransferase measurement (enzymatic activity/volume ) 10 U/L 0-55 Serum or plasma protein measurement (mass/volume) 7.2 g/dL 6.4-8.2 Serum or plasma albumin measurement (mass/volume) 4.0 g/dL 3.2-4.5 CALCIUM CORRECTED 9.6 mg/dL 8.5-10.1 Serum or plasma choriogonadotropin measurement (units/volume) - 08/15/18 21:30 Serum or plasma choriogonadotropin measurement (units/volume) 833940 m[iU]/mL <5 Blood manual differential performed detection - 08/15/18 21:30 Blood monocytes/100 leukocytes 3 % NRG Manual blood segmented neutrophils/100 leukocytes 72 % NRG Blood band neutrophils/100 leukocytes 1 % NRG Manual blood lymphocytes/100 leukocytes 21 % NRG Manual eosinophils/100 leukocytes in nose 3 % NRG Manual blood basophils/100 leukocytes 0 % NRG Blood erythrocyte morphology finding identification NORMAL NRG Encounters ACCT No. Visit Date/Time Discharge Status Pt. Type Provider Facility Loc./Unit Complaint [id number] 08/15/2018 21:01:00 08/15/2018 23:11:00 DIS Emergency VALERIA RICHMOND DO Via [facility] ER VOMITING,11 WKS [id number] 09/18/2017 22:33:00 09/19/2017 00:29:00 DIS Emergency PRITI OLIVER MD [facility] ER R SIDE NUMBNESS [id number] 08/26/2017 00:25:00 08/26/2017 01:50:00 DIS Emergency VALERIA RICHMOND DO [facility] ER HIGH BLOOD PRESSURE,CALIX X 3 DAYS [id number] 06/26/2017 00:19:00 06/26/2017 01:00:00 DIS Emergency PIO GARZA MD [facility] ER FLU SYM [id number] 04/05/2017 01:59:00 04/05/2017 03:54:00 DIS Emergency PIO GARZA MD [facility] ER CP [id number] 04/21/2016 22:46:00 04/22/2016 00:16:00 DIS Emergency MICHAEL PAZ MD [facility] ER CHEST PAIN;LEFT ARM PAIN [id number] 08/07/2015 09:16:00 08/07/2015 23:59:59 CLS Outpatient SAJI COOPER MD [facility] RAD CLOSED HEAD TRAUMA, LT EYE TRAMA VISUAL DISTURBAN [id number] 02/10/2015 07:09:00 02/10/2015 23:59:59 CLS Outpatient AMALIA LONG [facility] RAD ABDOMINAL PAIN RIGHT LOWER QUADRANT [id number] 07/21/2014 05:07:00 07/21/2014 05:42:00 DIS Emergency VALERIA RICHMOND DO [facility] ER SORE THROAT [id number] 11/07/2013 23:31:00 11/08/2013 00:22:00 DIS Emergency ROSA HOUSER MD [facility] ER LEFT EAR PAIN [id number] 07/02/2013 23:21:00 07/03/2013 01:59:00 DIS Emergency MICHAEL PAZ MD [facility] ER CALIX [id number] 06/19/2013 07:52:00 06/22/2013 14:35:00 DIS Inpatient PIERCE PALMA MD [facility] WS CONTRACTIONS [id number] 05/17/2013 10:15:00 05/17/2013 23:59:59 CLS Outpatient PIERCE PALMA MD [facility] RAD F/U GROWTH [id number] 04/29/2013 19:45:00 04/29/2013 21:27:00 DIS Emergency VALERIA RICHMOND DO K [facility] ER COUGH [id number] 04/12/2013 13:47:00 04/12/2013 23:59:59 CLS Outpatient PIERCE PALMA MD [facility] RAD FOLLOW UP ON GROWTH [id number] 03/22/2013 15:47:00 03/22/2013 23:59:59 CLS Outpatient PIERCE PALMA MD [facility] RAD SURVEY [id number] 01/05/2013 21:51:00 01/06/2013 01:26:00 DIS Emergency MICHAEL PAZ MD [facility] ER ABD PAIN; 12 WKS PREG [id number] 10/01/2018 20:37:00 ACT Emergency PIO GARZA MD [facility] ER 18 WKS PREG/STOMACH PAIN [id number] 09/11/2014 16:05:00 Document Registration [id number] 08/14/2014 06:00:00 Document Registration [id number] 06/24/2012 20:29:00 Document Registration [id number] 06/19/2012 02:06:00 Document Registration [id number] 04/14/2012 15:07:00 Document Registration [id number] 03/04/2016 05:06:00 Document Registration [email or web address] 02/10/2015 07:12:31 ACT Document Registration
--- NOTE | 2018-10-01 21:49 | NUR ---
BARON MATHIAS ASSISTED DR GARZA WITH PELVIS EXAM. FLUID CHECKED FOR AMNIOTIC FLUID WITH NO COLOR CHANGE PRESENT. WET PREP SWAB COLLECTED AND SENT TO LAB.
[2018-10-01 22:10] LABS: BACTERIA,URINE TRACE /HPF; BILIRUBIN,URINE NEGATIVE (NEGATIVE); CLARITY,URINE CLEAR; COLOR,URINE YELLOW; GLUCOSE, URINE (UA) NEGATIVE (NEGATIVE); KETONES,URINE NEGATIVE (NEGATIVE); LEUKOCYTE ESTERASE ,URINE NEGATIVE (NEGATIVE); NITRITE,URINE NEGATIVE (NEGATIVE); PH,URINE 8 (5-9); PROTEIN,URINE NEGATIVE (NEGATIVE); UROBILINOGEN,URINE NORMAL (NORMAL)
--- NOTE | 2018-10-01 22:34 | ED GU-Female ---
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 PATIENT IS 18 WEEKS WITH A DUE DATE OF Feb. PATIETN STATES APPROXIMATELY 1 HOUR AGO SHE HAD SOME CLEAR FLUIDS LEAKING FROM THE VAGINA. PATIENT IS RATING HER PAIN AT A 10. Nursing Sepsis Screen: No Definite Risk Source: patient Exam Limitations: no limitations History of Present Illness Date Seen by Provider: Oct 01, 2018 Time Seen by Provider: 21:40 Initial Comments Here with report of complaint of lower abdominal pain. She is approximately 18 weeks . She reports clear fluid from her vagina and a small amount. This is her fourth . Denies vaginal discharge otherwise. Denies fever or chills. Denies dysuria. Timing/Duration: this evening, constant Severity/Quality: cramping Location: suprapubic Radiation: none Activities at Onset: none Associated Symptoms: abdominal pain; No dysuria, No lower back pain, No nausea/ vomiting, No urinary frequency Allergies and Home Medications Allergies Coded Allergies: Penicillins (Verified Allergy, Unknown, 06/28/12) FROM UNCODED ALLERGY LIST Home Medications Doxylamine/Pyridoxine HCl 1 Each Tablet.dr, 2 EACH PO HS Prescribed by: VALERIA RICHMOND on 08/15/18 2249 Ondansetron 4 Mg Tab.rapdis, 4 MG PO Q4H Prescribed by: VALERIA RICHMOND on 08/15/18 2253 Patient Home Medication List Home Medication List Reviewed: Yes Review of Systems Review of Systems Constitutional: see HPI; No chills, No fever EENTM: no symptoms reported Respiratory: no symptoms reported Cardiovascular: no symptoms reported Gastrointestinal: see HPI, constipation; No diarrhea, No vomiting Genitourinary: see HPI : Yes Expected Date of Delivery: Feb 19, 2019 Skin: no symptoms reported Past Btwlhnc-Otkuqt-Gklzpw Hx Past Med/Social Hx: Reviewed Nursing Past Med/Soc Hx Patient Social History Alcohol Use: Denies Use Recreational Drug Use: No Smoking Status: Never a Smoker 2nd Hand Smoke Exposure: No Recent Foreign Travel: No Contact w/Someone Who Travel: No Recent Infectious Disease Expo: No Recent Hopitalizations: No Immunizations Up To Date Tetanus Booster (TDap): Unknown Date of Influenza Vaccine: Feb 21, 2014 Seasonal Allergies Seasonal Allergies: No Past Medical History Surgeries: Yes (INCISIONAL HERNIA REPAIR) Abdominal, Gallbladder Respiratory: No Cardiac: No (15 years ago reports an arrythmia) Neurological: Yes Headaches /Migraines Expected Date of Delivery: Feb 19, 2019 Reproductive Disorders: No Sexually Transmitted Disease: No HIV/AIDS: No Genitourinary: No Gastrointestinal: Yes Gastroesophageal Reflux Musculoskeletal: No Endocrine: No HEENT: No Cancer: No Psychosocial: No Integumentary: No Blood Disorders: No Adverse Reaction/Blood Tranf: No Family Medical History Reviewed Nursing Family Hx Family history: Diabetes mellitus 03 MOTHER Family history: Hypertension 03 FATHER No Family History of: Abdominal aortic aneurysm Hendry's disease Alcoholism Aphasia Cancer Cancer of colon Cataract Chest pain Congenital heart disease Congestive heart failure Cystic fibrosis Dementia Dysphagia Family history: Allergy Family history: Alzheimer's disease Family history: Arthritis Family history: Asthma Family history: Breast disease Family history: Cardiovascular disease Family history: Coronary thrombosis Family history: Gastrointestinal disease Family history: Glaucoma Family history: Osteoporosis Family history: Thyroid disorder Headache Hearing loss Heart disease Hereditary disease History of - anemia History of - disorder History of - respiratory disease History of drug abuse Human immunodeficiency virus (HIV) seropositivity Hypercholesterolemia Infertile Kidney disease Malignant neoplasm of lung Myocardial infarction Parkinson's disease Prostate cancer Psychotic disorder Seizure disorder Stroke Tuberculosis Visual impairment Heart Disease, Diabetes Physical Exam Vital Signs Vital Signs - First Documented 10/01/18 20:50 Temp 97.9 Pulse 100 Resp 22 B/P (MAP) 124/88 (100) Pulse Ox 99 O2 Delivery Room Air Capillary Refill : Less Than 3 Seconds Height, Weight, BMI Height: 5'2.00" Weight: 176lbs. 0oz. 79.005848we; 25.99 BMI Method:Stated General Appearance: WD/WN, no apparent distress Cardiovascular: regular rate, rhythm, no murmur Respiratory: lungs clear, normal breath sounds Gastrointestinal: soft, tenderness (lower) Pelvic: normal external exam, no cerv. motion tender; No vaginal bleeding; other (tender on the ground ligaments bilateral) Extremities: non-tender, normal inspection Neurologic/Psychiatric: alert, oriented x 3 Progress/Results/Core Measures Suspected Sepsis Recent Fever Within 48 Hours: No Infection Criteria Present: None New/Unexplained Altered Menta: No Sepsis Screen: No Definite Risk SIRS Temperature:97.9 Pulse: 100 Respiratory Rate: 22 Blood Pressure 124 /88 Mean: 100 Results/Orders Lab Results Laboratory Tests Test 10/01/18 20:53 Range/Units Urine Color YELLOW Urine Clarity CLEAR Urine pH 8 5-9 Urine Specific [place] 1.010 L 1.016-1.022 Urine Protein NEGATIVE NEGATIVE Urine Glucose (UA) NEGATIVE NEGATIVE Urine Ketones NEGATIVE NEGATIVE Urine Nitrite NEGATIVE NEGATIVE Urine Bilirubin NEGATIVE NEGATIVE Urine Urobilinogen NORMAL NORMAL MG/DL Urine Leukocyte Esterase NEGATIVE NEGATIVE Urine RBC (Auto) NEGATIVE NEGATIVE Urine RBC NONE /HPF Urine WBC NONE /HPF Urine Squamous Epithelial Cells 2-5 /HPF Urine Crystals NONE /LPF Urine Bacteria TRACE /HPF Urine Casts NONE /LPF Urine Mucus NEGATIVE /LPF Urine Culture Indicated NO My Orders Orders - PIO GARZA MD Ua Culture If Indicated (10/01/18 21:49) Wet Prep (10/01/18 21:49) Vital Signs/I&O 10/01/18 20:50 Temp 97.9 Pulse 100 Resp 22 B/P (MAP) 124/88 (100) Pulse Ox 99 O2 Delivery Room Air Capillary Refill : Less Than 3 Seconds Blood Pressure Mean: 100 Progress Note : Progress Note Seen and evaluated. Bedside ultrasound performed and heart tones noted at 150. Positive movement. 17-07/19 by femur length which is consistent with dates. Nitrazine swab done and negative. Digital pelvic exam does not show any mass but tender on the round ligaments. UA done and is negative. I did discuss the case with Dr. Osorio. She is recommending follow-up with Dr. Hardin within one week. She does have appointment on October 17 as well. She should continue Tylenol and may use warm baths as needed to reduce pain. Discharged home with return precautions. Patient verbalize understanding instructions and agreement with plan. Departure Impression Primary Impression: Abdominal pain during in second trimester Disposition: HOME, SELF-CARE Condition: Improved Departure-Patient Inst. Decision time for Depature: 22:35 Referrals: [facility] (PCP/Family) Primary Care Physician Patient Instructions: Acute Abdomen (Belly Pain), Adult (DC) Add. Discharge Instructions: All discharge instructions reviewed with patient and/or family. Voiced understanding. You may use Tylenol/acetaminophen 1000 mg every 6 hours as needed for pain. Drink plenty of fluids. You may soak in warm baths to reduce pain. Follow-up with your OB doctor, Dr. Hardin, within one week for recheck and further evaluation. Return for worse pain, fever, vomiting, weakness, breathing problems , vaginal discharge or bleeding, problems going to the bathroom or other concerns as needed. Copy Copies To 1: THUY HARDIN MD, TIMOTHY D MD Oct 01, 2018 22:34
[2018-10-01 22:46] VITALS: BP 106/72
== END 2018-10-01 22:48 | disposition home or self-care (01) ==
LOC: EDUNIT# 20:35 → ER 20:37
DX: O26.892 Other specified pregnancy related conditions, second trimester (principal); R10.31 Right lower quadrant pain; R10.32 Left lower quadrant pain; O99.612 Diseases of the digestive system complicating pregnancy, second trimester; K21.9 Gastro-esophageal reflux disease without esophagitis; O99.352 Diseases of the nervous system complicating pregnancy, second trimester; G43.909 Migraine, unspecified, not intractable, without status migrainosus; Z3A.18 18 weeks gestation of pregnancy; Z88.0 Allergy status to penicillin; Z98.890 Other specified postprocedural states
CPT/HCPCS: 81000; 87210; 99284

== ENCOUNTER 2018-12-21 20:40 | Outpatient (CLI) | payer SELFPAY ==
[~2018-12-21] VITALS: Ht 157.5 cm; Wt 85.3 kg
--- NOTE | 2018-12-21 20:53 | NUR ---
RENUKA FELIZ presented to unit via ambulatory from ED, accompanied by s/o, with c/o ABD PAIN/PRESSURE. RENUKA FELIZ weighed, gowned, voided, and to bed. EFHM and TOCO applied, VS taken. RENUKA FELIZ oriented to bed controls, call light, TV, heat, and A/C controls.
[2018-12-21 21:05] VITALS: BP 119/64
--- NOTE | 2018-12-21 21:05 | NUR ---
Sve per this RN, cervix closed and thick. No leaking of fluid or vaginal bleeding or discharge.
[2018-12-21 21:14] LABS: BILIRUBIN,URINE NEGATIVE (NEGATIVE); CLARITY,URINE CLEAR; COLOR,URINE YELLOW; GLUCOSE, URINE (UA) NEGATIVE (NEGATIVE); KETONES,URINE NEGATIVE (NEGATIVE); LEUKOCYTE ESTERASE ,URINE NEGATIVE (NEGATIVE); NITRITE,URINE NEGATIVE (NEGATIVE); PH,URINE 7 (5-9); PROTEIN,URINE NEGATIVE (NEGATIVE); UROBILINOGEN,URINE NORMAL (NORMAL)
[2018-12-21 21:23] LABS: BACTERIA,URINE TRACE /HPF
[2018-12-21] MEDS ORDERED: CEPHALEXIN 250 MG (KEFLEX) CAP PO ONE ×2 (21:38→21:45)
[2018-12-21] MEDS ORDERED: PREN-53 PO (21:38)
[2018-12-21] MEDS ORDERED: ACETAMINOPHEN 325 MG TABLET ONE (21:39)
[2018-12-21] MEDS ORDERED: ACETAMINOPHEN 500 MG TAB (TYLENOL) PO ONE (21:45)
[2018-12-21] MEDS ORDERED: ACETAMINOPHEN 500 MG TAB (TYLENOL) ONE (21:48)
--- NOTE | 2018-12-21 21:55 | NUR ---
Discharge instructions and handouts given and reviewed with patient and . Encouraged patient to call for any concerns. Patient and verbalized understanding.
== END 2018-12-21 21:55 | disposition home or self-care (01) ==
LOC: LDRP 20:40 → WSo 20:40
PROVIDERS: ATTEND Family Medicine
DX: O99.89 Other specified diseases and conditions complicating pregnancy, childbirth and the puerperium (principal); R10.2 Pelvic and perineal pain; Z3A.29 29 weeks gestation of pregnancy
CPT/HCPCS: 81000; 99213

== ENCOUNTER 2019-01-16 20:51 | Outpatient (CLI) | payer SELFPAY ==
[~2019-01-16] VITALS: Ht 157.5 cm; Wt 84.8 kg
[~2019-01-16 20:51] MED LIST changes: -OMEP20CA12 PO; +OMEP20CA13 PO; +PREN-53 PO
--- NOTE | 2019-01-16 20:58 | NUR ---
RENUKA FELIZ presented to unit via AMBULATION from ED, accompanied by SO, with c/o CONTRACTIONS. RENUKA FELIZ weighed, gowned, voided, and to bed. EFHM and TOCO applied, VS taken. RENUKA FELIZ oriented to bed controls, call light, TV, heat, and A/C controls.
[2019-01-16 21:13] VITALS: BP 114/69
[2019-01-16 21:21] LABS: BILIRUBIN,URINE NEGATIVE (NEGATIVE); CLARITY,URINE SLIGHTLY CLOUDY; COLOR,URINE YELLOW; GLUCOSE, URINE (UA) NEGATIVE (NEGATIVE); KETONES,URINE NEGATIVE (NEGATIVE); LEUKOCYTE ESTERASE ,URINE 1+ (NEGATIVE); NITRITE,URINE NEGATIVE (NEGATIVE); PH,URINE 7 (5-9); PROTEIN,URINE NEGATIVE (NEGATIVE); UROBILINOGEN,URINE NORMAL (NORMAL)
[2019-01-16 21:30] LABS: BACTERIA,URINE MODERATE /HPF
--- NOTE | 2019-01-16 22:15 | NUR ---
D/C instructions given & explained per Dheeraj Escudero, RN, pt. verbalized understanding & signed. Copy of D/C instructions to pt. Pt. left WS ambulatory, escorted by SO, to home via private vehicle.
== END 2019-01-16 22:15 | disposition home or self-care (01) ==
LOC: WSo 20:51 → LDRP 20:51 → WSo 22:15
PROVIDERS: ATTEND Family Medicine
DX: O62.9 Abnormality of forces of labor, unspecified (principal); Z3A.32 32 weeks gestation of pregnancy
CPT/HCPCS: 81000; 87088; 99213

== ENCOUNTER 2019-01-25 08:12 | Outpatient (CLI) | payer OTHER ==
[~2019-01-25] VITALS: Ht 157.5 cm; Wt 84.8 kg
--- NOTE | 2019-01-25 08:20 | NUR ---
RENUKA FELIZ presented to unit via AMBULATION from ED, accompanied by S/O, with c/o CONTRACTIONS. RENUKA FELIZ weighed, gowned, voided, and to bed. EFHM and TOCO applied, VS taken. RENUKA FELIZ oriented to bed controls, call light, TV, heat, and A/C controls.
[2019-01-25 08:30] VITALS: BP 111/70
[2019-01-25 08:31] VITALS: BP 111/70
--- NOTE | 2019-01-25 08:35 | NUR ---
SVE BY THIS RN. 2.5-3CM 80% -3 BALLOTABLE. UNABLE TO DETERMINE POSITION.
[2019-01-25] MEDS ORDERED: LACTATED RINGERS 1,000 ML IV ONE ×2 (08:37→09:57)
[2019-01-25 08:58] LABS: BILIRUBIN,URINE NEGATIVE (NEGATIVE); CLARITY,URINE CLEAR; COLOR,URINE YELLOW; GLUCOSE, URINE (UA) NEGATIVE (NEGATIVE); KETONES,URINE NEGATIVE (NEGATIVE); LEUKOCYTE ESTERASE ,URINE 1+ (NEGATIVE); NITRITE,URINE NEGATIVE (NEGATIVE); PH,URINE 7 (5-9); PROTEIN,URINE NEGATIVE (NEGATIVE); UROBILINOGEN,URINE NORMAL (NORMAL)
[2019-01-25 09:07] LABS: BACTERIA,URINE FEW /HPF; WBC,URINE 0-2 /HPF
[2019-01-25 09:28] LABS: BASOPHILS % (AUTO) 0 % (0-10); EOSINOPHILS # (AUTO) 0.1 10^3/uL (0.0-0.3); EOSINOPHILS % (AUTO) 1 % (0-10); HEMATOCRIT 34 % (35-52); HEMOGLOBIN 10.9 G/DL (11.5-16.0); LYMPHOCYTES # (AUTO) 2.3 X 10^3 (1.0-4.0); LYMPHOCYTES % (AUTO) 21 % (12-44); MEAN CORPUSCULAR HEMOGLOBIN 28 PG (25-34); MEAN CORPUSCULAR HGB CONC 32 G/DL (32-36); MEAN CORPUSCULAR VOLUME 85 FL (80-99); MEAN PLATELET VOLUME 12.1 FL (7.4-10.4); MONOCYTES % (AUTO) 9 % (0-12); NEUTROPHILS # (AUTO) 7.5 X 10^3 (1.8-7.8); NEUTROPHILS % (AUTO) 69 % (42-75); PLATELET COUNT 253 10^3/uL (130-400); RED CELL DISTRIBUTION WIDTH 13.7 % (10.0-14.5)
[2019-01-25 09:42] LABS: ALANINE AMINOTRANSFERASE 20 U/L (0-55); ALBUMIN 3.4 GM/DL (3.2-4.5); ALKALINE PHOSPHATASE 129 U/L (40-136); BILIRUBIN,TOTAL 0.3 MG/DL (0.1-1.0); BUN/CREATININE RATIO 8; CALCIUM 9.8 MG/DL (8.5-10.1); CARBON DIOXIDE 20 MMOL/L (21-32); CHLORIDE 105 MMOL/L (98-107); GFR ESTIMATED > 60; GLUCOSE 82 MG/DL (70-105); POTASSIUM 3.8 MMOL/L (3.6-5.0); SODIUM 136 MMOL/L (135-145); TOTAL PROTEIN 7.1 GM/DL (6.4-8.2)
--- NOTE | 2019-01-25 09:45 | NUR ---
DR HARDIN TO BEDSIDE ASSESSING PATIENT STATUS. CONTINUING TO MONITOR EXPECTANTLY.
--- NOTE | 2019-01-25 10:09 | Diagnostic Imaging Report ---
Indication: Abdominal pain and contractions. There is a single live fetus in cephalic presentation. heart rate was recorded at 147 beats per minute. Placenta is to the right and posterior. Amniotic fluid index is 10.1 cm. Overall biophysical profile score is normal at 8 out 8. Impression: Normal biophysical profile score 8 out of 8. Dictated by: Dictated on workstation # [id number]
--- NOTE | 2019-01-25 10:15 | NUR ---
patient reports decrease in pain. no crying noted. reports pain only intermittently at this time. 6:10 pain level.
--- NOTE | 2019-01-25 10:19 | Diagnostic Imaging Report ---
PROCEDURE: US Hepatic (Liver). TECHNIQUE: Multiple real-time grayscale images were obtained over the right upper quadrant in various projections. INDICATION: Abdominal pain and nausea. FINDINGS: The liver is normal in size at 15 cm. No discrete liver mass is identified. The portal vein is patent and shows normal direction of flow. Gallbladder is surgically absent. No biliary ductal dilatation is seen. The pancreas was obscured. Right kidney does show some mild prominence of the right renal pelvis. No calculi are seen. There is no ascites. IMPRESSION: Mild prominence of the right renal pelvis. The study is otherwise unremarkable. Dictated by: Dictated on workstation # [id number]
[2019-01-25] MEDS ORDERED: TERBUTALINE INJ 1 MG/ML (BRETHINE) AMP SC ONE (12:32)
--- NOTE | 2019-01-25 12:32 | NUR ---
dr lee notified of patient continued fundal and abdominal tenderness, contraction./fhr pattern and cervical change. . new orders received.
[2019-01-25] MEDS ORDERED: D5 LR IV SOLUTION 1,000 ML IV ONE (12:36)
[2019-01-25] MEDS ORDERED: TERBUTALINE INJ 1 MG/ML (BRETHINE) AMP ONE (12:36)
[2019-01-25 12:45] VITALS: BP 113/73
[2019-01-25 13:10] VITALS: BP 110/67
--- NOTE | 2019-01-25 13:20 | NUR ---
readjusting toco and fhr monitor. patient reports pain the same as before terbutaline given. difficulty tracing contractions readjusted .
[2019-01-25] MEDS ORDERED: D5 LR IV SOLUTION 1,000 ML IV SCH (13:30)
[2019-01-25] MEDS ORDERED: ANTACID SUSP 30 ML UDC (MYLANTA) PO NR (14:15)
--- NOTE | 2019-01-25 14:19 | History & Physical ---
HPI History of Present Illness: 33-year-old 4 term 3 who is currently at 33 weeks gestation complaining of uterine cramping as well as epigastric discomfort. Her who speaks Ivorian stated she has been taking quite a bit of Tums lately. She denies any issues with vaginal bleeding. She does have an occasional pelvic pressure. Her previous delivery was at 36 weeks however the prior to or at term 40 weeks. Source: family Exam Limitations: clinical condition Date seen by provider: Jan 25, 2019 Time Seen by Provider: 14:15 Attending Physician Surjit Mcgovern MD PCP Surjit Mcgovern MD Consult Date of Admission Home Medications Home Medications Reviewed patient Home Medication Reconciliation performed by pharmacy medication reconciliations coating technician and/or nursing. Patients Allergies have been reviewed. Allergies Coded Allergies: Penicillins (Verified Allergy, Unknown, 06/28/12) FROM UNCODED ALLERGY LIST HEE-Elargg-Wmvqgx Hx Patient Social History Marrital Status: Number of Children: 3 2nd Hand Smoke Exposure: No Recent Foreign Travel: No Contact w/other who traveled: No Recent Hopitalizations: No Physical Abuse Screen: No Sexual Abuse: No Immunizations Up To Date Tetanus Booster (TDap): Unknown Date of Influenza Vaccine: Feb 21, 2014 Family Medical History Significant Family History: Heart Disease, Diabetes Family History: Family history: Diabetes mellitus 03 MOTHER Family history: Hypertension 03 FATHER No Family History of: Abdominal aortic aneurysm Sudeep's disease Alcoholism Aphasia Cancer Cancer of colon Cataract Chest pain Congenital heart disease Congestive heart failure Cystic fibrosis Dementia Dysphagia Family history: Allergy Family history: Alzheimer's disease Family history: Arthritis Family history: Asthma Family history: Breast disease Family history: Cardiovascular disease Family history: Coronary thrombosis Family history: Gastrointestinal disease Family history: Glaucoma Family history: Osteoporosis Family history: Thyroid disorder Headache Hearing loss Heart disease Hereditary disease History of - anemia History of - disorder History of - respiratory disease History of drug abuse Human immunodeficiency virus (HIV) seropositivity Hypercholesterolemia Infertile Kidney disease Malignant neoplasm of lung Myocardial infarction Parkinson's disease Prostate cancer Psychotic disorder Seizure disorder Stroke Tuberculosis Visual impairment Review of Systems (CH[facility]) Constitutional: see HPI Reviewed Test Results Reviewed Test Results Lab Laboratory Tests Test 01/25/19 08:25 01/25/19 09:00 Range/Units Urine Color YELLOW Urine Clarity CLEAR Urine pH 7 5-9 Urine Specific [place] 1.005 L 1.016-1.022 Urine Protein NEGATIVE NEGATIVE Urine Glucose (UA) NEGATIVE NEGATIVE Urine Ketones NEGATIVE NEGATIVE Urine Nitrite NEGATIVE NEGATIVE Urine Bilirubin NEGATIVE NEGATIVE Urine Urobilinogen NORMAL NORMAL MG/DL Urine Leukocyte Esterase 1+ H NEGATIVE Urine RBC (Auto) NEGATIVE NEGATIVE Urine RBC NONE /HPF Urine WBC 0-2 /HPF Urine Squamous Epithelial Cells 2-5 /HPF Urine Crystals NONE /LPF Urine Bacteria FEW H /HPF Urine Casts NONE /LPF Urine Mucus NEGATIVE /LPF Urine Culture Indicated NO White Blood Count 11.0 4.3-11.0 10^3/uL Red Blood Count 3.95 L 4.35-5.85 10^6/uL Hemoglobin 10.9 L 11.5-16.0 G/DL Hematocrit 34 L 35-52 % Mean Corpuscular Volume 85 80-99 FL Mean Corpuscular Hemoglobin 28 25-34 PG Mean Corpuscular Hemoglobin Concent 32 32-36 G/DL Red Cell Distribution Width 13.7 10.0-14.5 % Platelet Count 253 130-400 10^3/uL Mean Platelet Volume 12.1 H 7.4-10.4 FL Neutrophils (%) (Auto) 69 42-75 % Lymphocytes (%) (Auto) 21 12-44 % Monocytes (%) (Auto) 9 0-12 % Eosinophils (%) (Auto) 1 0-10 % Basophils (%) (Auto) 0 0-10 % Neutrophils # (Auto) 7.5 1.8-7.8 X 10^3 Lymphocytes # (Auto) 2.3 1.0-4.0 X 10^3 Monocytes # (Auto) 1.0 0.0-1.0 X 10^3 Eosinophils # (Auto) 0.1 0.0-0.3 10^3/uL Basophils # (Auto) 0.0 0.0-0.1 10^3/uL Sodium Level 136 135-145 MMOL/L Potassium Level 3.8 3.6-5.0 MMOL/L Chloride Level 105 98-107 MMOL/L Carbon Dioxide Level 20 L 21-32 MMOL/L Anion Gap 11 5-14 MMOL/L Blood Urea Nitrogen 5 L 7-18 MG/DL Creatinine 0.60 0.60-1.30 MG/DL Estimat Glomerular Filtration Rate > 60 BUN/Creatinine Ratio 8 Glucose Level 82 70-105 MG/DL Calcium Level 9.8 8.5-10.1 MG/DL Corrected Calcium 10.3 H 8.5-10.1 MG/DL Total Bilirubin 0.3 0.1-1.0 MG/DL Aspartate Amino Transf (AST/SGOT) 17 5-34 U/L Alanine Aminotransferase (ALT/SGPT) 20 0-55 U/L Alkaline Phosphatase 129 40-136 U/L Total Protein 7.1 6.4-8.2 GM/DL Albumin 3.4 3.2-4.5 GM/DL Radiology [facility]. [place], [place] NAME: RENUKA FELIZ [facility] REC#: [id number] PT STATUS: REG CLI : 1985 PHYSICIAN: SURJIT MCGOVERN MD ADMIT DATE: 01/25/19/LDRP Draft Date of Exam:01/25/19 US BIOPHYSICAL PROFILE [id number] Indication: Abdominal pain and contractions. There is a single live fetus in cephalic presentation. heart rate was recorded at 147 beats per minute. Placenta is to the right and posterior. Amniotic fluid index is 10.1 cm. Overall biophysical profile score is normal at 8 out 8. Impression: Normal biophysical profile score 8 out of 8. Dictated on workstation # [id number] Dict: 01/25/19 1004 Trans: 01/25/19 1009 [facility] [id number] Interpreted by: AYANNA MINA MD Electronically signed by: Physical Exam-(CHC) Physical Exam Vital Signs VS - Last 72 Hours, by Label 01/25/19 01/25/19 01/25/19 01/25/19 08:30 08:31 12:45 13:10 Temp 98.6 98.6 Pulse 74 74 75 86 Resp 20 20 20 20 B/P (MAP) 111/70 (84) 111/70 (84) 113/73 (86) 110/67 (81) O2 Delivery Room Air Room Air Room Air Room Air 01/25/19 16:20 Temp 99.3 Pulse 97 Resp 20 B/P (MAP) 111/69 (83) O2 Delivery Room Air Capillary Refill : General Appearance: mild distress Respiratory: lungs clear Cardiovascular: regular rate, rhythm Gastrointestinal: tenderness (Primarily in the epigastric region) Comments Cervix reveals non-presenting part of fetus. She is noted to be 2-1/2-3 cm. Assessment/Plan Assessment/Plan Admission Dx 1. Intrauterine at 33 weeks gestation 2. labor 3. Epigastric discomfortgastritis/esophagitis versus peptic ulcer disease Admission Status: Observation Assessment & Plan 1. Intrauterine at 33 weeks gestation 2. labor -Patient to receive betamethasone -Intravenous Fluid hydration -Procardia if necessary 3. Epigastric discomfortgastritis/esophagitis versus peptic ulcer disease -Will give Mylanta as trial to see if helps with the epigastric discomfort -If helpful she may need to go on omeprazole or Protonix SURJIT MCGOVERN MD Jan 25, 2019 14:19
[2019-01-25 14:29] LABS: AMYLASE 97 U/L (25-125); LIPASE 12 U/L (8-78)
[2019-01-25] MEDS ORDERED: BETAMETHASONE ACE/NA PHOS 6 MG/ML (CELESTONE SOLUSPAN) IM NR (14:30)
--- NOTE | 2019-01-25 14:40 | NUR ---
betamethasone given IM in right deltoid. mylanta administered orally per dr shukla. cointinuing to monitor closely.
--- NOTE | 2019-01-25 15:00 | NUR ---
notified dr lee of patient status, contraction frequency and lab results. no new orders at this time.
--- NOTE | 2019-01-25 15:20 | NUR ---
reviewed poc with patient verbalized understanding. continiuing to monitor expectantly.
--- NOTE | 2019-01-25 15:34 | NUR ---
dr lee called with update new orders recieved.
[2019-01-25] MEDS ORDERED: PANTOPRAZOLE 40 MG (PROTONIX) VIAL IV NR (15:45)
[2019-01-25 16:20] VITALS: BP 111/69
--- NOTE | 2019-01-25 16:25 | NUR ---
notified dr lee of patient request for food. new diet order received.
--- NOTE | 2019-01-25 16:55 | NUR ---
patient reports pain minimal. reviewed diet order. verbalized understanding.
--- NOTE | 2019-01-25 17:30 | NUR ---
REPORTS SHE IS FEELING BETTER , HOPEFUL TO D/C HOME.
--- NOTE | 2019-01-25 18:00 | NUR ---
PATIENT SITTING UP EATING S/O AT BEDSIDE.
--- NOTE | 2019-01-25 18:45 | NUR ---
DR HARDIN NOTIFIED PATIENT REPORTS PAIN INCREASING ALONG WITH CONTRACTIONS. ORDERS GIVEN TO SEND HOME ON BEDREST NO NEW MEDS. PATIENT TO RETURN TOMORROW FOR BETAMETHASONE.
--- NOTE | 2019-01-25 19:10 | NUR ---
REPORT TO Greg PERDUE RN .
--- NOTE | 2019-01-25 19:40 | NUR ---
Discharge instructions verbalized with pt. pt will return to hospital tomorrow around 1400 for repeat beta. Labor precautions given. pt denies any questions. pt dc'd home with s/o at side.
--- NOTE | 2019-01-25 20:37 | Progress Note ---
Subjective Subjective/Events-last exam Patient much more comfortable than on admission. The mylanta appears to of helped her epigastric pain. IVFs and resting have pretty much resolved her contractions. She had also received terbutaline x 2 doses. She had supper at 1800 and tolerated well. Objective Exam Last Set of Vital Signs Vital Signs Date Time Temp Pulse Resp B/P (MAP) Pulse Ox O2 Delivery O2 Flow Rate FiO2 01/25/19 16:20 99.3 97 20 111/69 (83) Room Air Capillary Refill : Other physical findings Cervix check performed this afternoon by myself revealed non presenting part. Cervical dilation at 2-21/2 cm. monitor revealed very mild contractions and infrequent. Results/Procedures Lab Laboratory Tests 01/25/19 08:25: Urine Color YELLOW, Urine Clarity CLEAR, Urine pH 7, Urine Specific [place] 1.005L, Urine Protein NEGATIVE, Urine Glucose (UA) NEGATIVE, Urine Ketones NEGATIVE, Urine Nitrite NEGATIVE, Urine Bilirubin NEGATIVE, Urine Urobilinogen NORMAL, Urine Leukocyte Esterase 1+H, Urine RBC (Auto) NEGATIVE, Urine RBC NONE, Urine WBC 0-2, Urine Squamous Epithelial Cells 2-5, Urine Crystals NONE, Urine Bacteria FEWH, Urine Casts NONE, Urine Mucus NEGATIVE, Urine Culture Indicated NO 01/25/19 09:00: White Blood Count 11.0, Red Blood Count 3.95L, Hemoglobin 10.9L, Hematocrit 34L, Mean Corpuscular Volume 85, Mean Corpuscular Hemoglobin 28, Mean Corpuscular Hemoglobin Concent 32, Red Cell Distribution Width 13.7, Platelet Count 253, Mean Platelet Volume 12.1H, Neutrophils (%) (Auto) 69, Lymphocytes (%) (Auto) 21, Monocytes (%) (Auto) 9, Eosinophils (%) (Auto) 1, Basophils (%) (Auto) 0, Neutrophils # (Auto) 7.5, Lymphocytes # (Auto) 2.3, Monocytes # (Auto) 1.0, Eosinophils # (Auto) 0.1, Basophils # (Auto) 0.0, Sodium Level 136, Potassium Level 3.8, Chloride Level 105, Carbon Dioxide Level 20L, Anion Gap 11, Blood Urea Nitrogen 5L, Creatinine 0.60, Estimat Glomerular Filtration Rate > 60, BUN/ Creatinine Ratio 8, Glucose Level 82, Calcium Level 9.8, Corrected Calcium 10.3H , Total Bilirubin 0.3, Aspartate Amino Transf (AST/SGOT) 17, Alanine Aminotransferase (ALT/SGPT) 20, Alkaline Phosphatase 129, Total Protein 7.1, Albumin 3.4, Amylase Level 97, Lipase 12 Radiology [facility]. [place], [place] NAME: RENUKA FELIZ [facility] REC#: [id number] PT STATUS: REG CLI : 1985 PHYSICIAN: THUY HARDIN MD ADMIT DATE: 01/25/19/LDRP Draft Date of Exam:01/25/19 US BIOPHYSICAL PROFILE [id number] Indication: Abdominal pain and contractions. There is a single live fetus in cephalic presentation. heart rate was recorded at 147 beats per minute. Placenta is to the right and posterior. Amniotic fluid index is 10.1 cm. Overall biophysical profile score is normal at 8 out 8. Impression: Normal biophysical profile score 8 out of 8. Dictated on workstation # [id number] Dict: 01/25/19 1004 Trans: 01/25/19 1009 [facility] [id number] Interpreted by: AYANNA MINA MD Electronically signed by: Assessment/Plan Assessment/Plan Admission Status: Observation Assessment & Plan 1. Intrauterine at 33 weeks gestation 2. labor -Patient to receive betamethasone -Intravenous Fluid hydration -Procardia if necessary addendum: -home this early evening. She was with mild contractions but no change of cervix during coarse of afternoon. -She was given instructions for bedrest and no strenuous activities. -return tomorrow for 2nd betamethasone. 3. Epigastric discomfortgastritis/esophagitis versus peptic ulcer disease -Will give Mylanta as trial to see if helps with the epigastric discomfort -If helpful she may need to go on omeprazole or Protonix addendum: better with mylanta. Will send home with protonix THUY HARDIN MD Jan 25, 2019 20:37
[2019-01-26] MEDS ORDERED: BETAMETHASONE ACE/NA PHOS 6 MG/ML (CELESTONE SOLUSPAN) ONE (14:00)
== END 2019-01-25 19:40 | disposition home or self-care (01) ==
LOC: WSo 08:12 → LDRP 08:14 → WSo 19:40
PROVIDERS: ATTEND Family Medicine
DX: O60.03 Preterm labor without delivery, third trimester (principal); R10.13 Epigastric pain; Z3A.33 33 weeks gestation of pregnancy
CPT/HCPCS: 36415; 76705; 76819; 80053; 81000; 82150; 83690; 85025; 96361; 96372; 96374; 96375; 99214

== ENCOUNTER → 2019-01-26 | Outpatient (CLI) | payer OTHER ==
[~2019-01-26] MED LIST changes: +BETAMETHASONE ACE/NA PHOS 6 MG/ML (CELESTONE SOLUSPAN) IM SCH; +TERBUTALINE INJ 1 MG/ML (BRETHINE) AMP ONE
--- NOTE | 2019-01-26 14:00 | NUR ---
RENUKA FELIZ presented to unit via AMBULATION, accompanied by S.O, FOR BETA INJECTION. RENUKA FELIZ oriented to bed controls, call light, TV, heat, and A/C controls.
--- NOTE | 2019-01-26 14:10 | NUR ---
Betamethasone given, see eMar. Pt tolerates well. Pt ambulates off unit accompanied by S.o. to private vehicle. No s/s of distress noted. Addendum: 01/26/19 at 1442 by PEDRO OWUSU RN Betamethasone Lot [id number], exp date
== END ==
LOC: WSo 14:05
PROVIDERS: ATTEND Family Medicine
DX: O60.03 Preterm labor without delivery, third trimester (principal); Z3A.32 32 weeks gestation of pregnancy
CPT/HCPCS: 96372

== ENCOUNTER 2019-01-28 21:22 | Emergency (ER) | payer SELFPAY ==
[~2019-01-28] VITALS: Ht 157.5 cm; Wt 87.1 kg
[~2019-01-28 21:22] MED LIST changes: -BETAMETHASONE ACE/NA PHOS 6 MG/ML (CELESTONE SOLUSPAN) IM SCH; -TERBUTALINE INJ 1 MG/ML (BRETHINE) AMP ONE
[2019-01-28] MEDS ORDERED: NS IV 1000 ML 1,000 ML IV SCH (21:51)
--- NOTE | 2019-01-28 22:08 | ED Respiratory ---
General Stated Complaint: SOA Source: patient, other Exam Limitations: language barrier History of Present Illness Date Seen by Provider: Jan 28, 2019 Time Seen by Provider: 21:38 Initial Comments Patient speaking limited South Korean accompanied by a friend who fluent South Korean presents to the ER with shortness of breath and abdominal pain. She is 35 weeks and 3 days with an estimated due date of March 01, [address] Hernandez . She is expressing contraction pain about 1 minute every 5-10 minutes starting about half an hour prior to arrival. She was measured 3 days ago to be [address] Hernandez and has had no loss of fluids, vaginal bleeding, fever cough chest pain or history of exposure to sick people. Apparently 3 days ago when she was here for contractions she had to be given 2 doses of terbutaline and was allowed to go home after a 8 out of 8 BPP. Allergies and Home Medications Allergies Coded Allergies: Penicillins (Verified Allergy, Unknown, 06/28/12) FROM UNCODED ALLERGY LIST Home Medications [id number]/Iron Fumarate/FA/Dss 1 Each Tablet, 1 EACH PO DAILY, (Reported) Patient Home Medication List Home Medication List Reviewed: Yes Review of Systems Review of Systems Constitutional: No chills, No diaphoresis, No fever EENTM: No ear pain, No eye pain Respiratory: No cough, No short of breath Cardiovascular: No chest pain, No edema Gastrointestinal: No abdominal pain, No nausea, No vomiting Genitourinary: No discharge, No dysuria : Yes Expected Date of Delivery: Mar 01, 2019 Past Tvdofoh-Uvelyx-Qhzjvp Hx Patient Social History Alcohol Use: Denies Use Recreational Drug Use: No Smoking Status: Never a Smoker 2nd Hand Smoke Exposure: No Recent Foreign Travel: No Contact w/Someone Who Travel: No Recent Hopitalizations: No Immunizations Up To Date Tetanus Booster (TDap): Unknown Date of Influenza Vaccine: Feb 21, 2014 Seasonal Allergies Seasonal Allergies: No Past Medical History Surgeries: Yes (INCISIONAL HERNIA REPAIR) Abdominal, Gallbladder Respiratory: No Cardiac: No (15 years ago reports an arrythmia) Neurological: Yes Headaches /Migraines Reproductive Disorders: No Sexually Transmitted Disease: No HIV/AIDS: No Genitourinary: No Gastrointestinal: Yes Gastroesophageal Reflux Musculoskeletal: No Endocrine: No HEENT: No Cancer: No Psychosocial: No Integumentary: No Blood Disorders: No Adverse Reaction/Blood Tranf: No Family Medical History Family history: Diabetes mellitus 03 MOTHER Family history: Hypertension 03 FATHER No Family History of: Abdominal aortic aneurysm Sudeep's disease Alcoholism Aphasia Cancer Cancer of colon Cataract Chest pain Congenital heart disease Congestive heart failure Cystic fibrosis Dementia Dysphagia Family history: Allergy Family history: Alzheimer's disease Family history: Arthritis Family history: Asthma Family history: Breast disease Family history: Cardiovascular disease Family history: Coronary thrombosis Family history: Gastrointestinal disease Family history: Glaucoma Family history: Osteoporosis Family history: Thyroid disorder Headache Hearing loss Heart disease Hereditary disease History of - anemia History of - disorder History of - respiratory disease History of drug abuse Human immunodeficiency virus (HIV) seropositivity Hypercholesterolemia Infertile Kidney disease Malignant neoplasm of lung Myocardial infarction Parkinson's disease Prostate cancer Psychotic disorder Seizure disorder Stroke Tuberculosis Visual impairment Heart Disease, Diabetes Physical Exam Vital Signs - First Documented 01/28/19 01/28/19 22:07 23:01 Temp 98.6 Pulse 85 Resp 22 B/P (MAP) 125/73 (90) Pulse Ox 99 O2 Delivery Room Air Capillary Refill : Height: 5'2.00" Weight: 187lbs. 0.0oz. 84.720623xm; 34.2 BMI Method:Stated General Appearance: WD/WN, mild distress Eyes: Bilateral Eye Normal Inspection, Bilateral Eye PERRL, Bilateral Eye EOMI HEENT: PERRL/EOMI, normal ENT inspection, TMs normal, pharynx normal Neck: non-tender, full range of motion, supple, normal inspection Respiratory: lungs clear, normal breath sounds, no respiratory distress, no accessory muscle use Cardiovascular: normal peripheral pulses, regular rate, rhythm, no edema Gastrointestinal: other (gravid; uterine fundus 3 fingers above the umbilical) Extremities: normal range of motion, non-tender, normal capillary refill Neurologic/Psychiatric: alert, normal mood/affect, oriented x 3 Skin: normal color, warm/dry Progress/Results/Core Measures Suspected Sepsis SIRS Temperature: Pulse: Respiratory Rate: Laboratory Tests 01/28/19 21:56: White Blood Count 12.5H Blood Pressure / Mean: Laboratory Tests 01/28/19 21:56: Creatinine 0.64, Platelet Count 264, Total Bilirubin 0.3 Results/Orders Lab Results Laboratory Tests Test 01/28/19 21:56 01/28/19 22:02 Range/Units White Blood Count 12.5 H 4.3-11.0 10^3/uL Red Blood Count 3.59 L 4.35-5.85 10^6/uL Hemoglobin 9.8 L 11.5-16.0 G/DL Hematocrit 31 L 35-52 % Mean Corpuscular Volume 87 80-99 FL Mean Corpuscular Hemoglobin 27 25-34 PG Mean Corpuscular Hemoglobin Concent 32 32-36 G/DL Red Cell Distribution Width 13.9 10.0-14.5 % Platelet Count 264 130-400 10^3/uL Mean Platelet Volume 12.0 H 7.4-10.4 FL Neutrophils (%) (Auto) 65 42-75 % Lymphocytes (%) (Auto) 22 12-44 % Monocytes (%) (Auto) 12 0-12 % Eosinophils (%) (Auto) 1 0-10 % Basophils (%) (Auto) 0 0-10 % Neutrophils # (Auto) 8.1 H 1.8-7.8 X 10^3 Lymphocytes # (Auto) 2.7 1.0-4.0 X 10^3 Monocytes # (Auto) 1.5 H 0.0-1.0 X 10^3 Eosinophils # (Auto) 0.1 0.0-0.3 10^3/uL Basophils # (Auto) 0.0 0.0-0.1 10^3/uL Sodium Level 137 135-145 MMOL/L Potassium Level 3.9 3.6-5.0 MMOL/L Chloride Level 106 98-107 MMOL/L Carbon Dioxide Level 19 L 21-32 MMOL/L Anion Gap 12 5-14 MMOL/L Blood Urea Nitrogen 7 7-18 MG/DL Creatinine 0.64 0.60-1.30 MG/DL Estimat Glomerular Filtration Rate > 60 BUN/Creatinine Ratio 11 Glucose Level 105 70-105 MG/DL Calcium Level 9.1 8.5-10.1 MG/DL Corrected Calcium 9.5 8.5-10.1 MG/DL Total Bilirubin 0.3 0.1-1.0 MG/DL Aspartate Amino Transf (AST/SGOT) 23 5-34 U/L Alanine Aminotransferase (ALT/SGPT) 27 0-55 U/L Alkaline Phosphatase 132 40-136 U/L Total Protein 7.3 6.4-8.2 GM/DL Albumin 3.5 3.2-4.5 GM/DL Urine Color YELLOW Urine Clarity SLIGHTLY CLOUDY Urine pH 7 5-9 Urine Specific [place] 1.010 L 1.016-1.022 Urine Protein NEGATIVE NEGATIVE Urine Glucose (UA) NEGATIVE NEGATIVE Urine Ketones NEGATIVE NEGATIVE Urine Nitrite NEGATIVE NEGATIVE Urine Bilirubin NEGATIVE NEGATIVE Urine Urobilinogen NORMAL NORMAL MG/DL Urine Leukocyte Esterase 1+ H NEGATIVE Urine RBC (Auto) NEGATIVE NEGATIVE Urine RBC 0 /HPF Urine WBC 0 /HPF Urine Crystals NONE /LPF Urine Bacteria TRACE /HPF Urine Casts NONE /LPF Urine Mucus NEGATIVE /LPF Urine Culture Indicated NO My Orders Orders - PRITI OLIVER Ed Iv/Invasive Line Start (01/28/19 21:51) Ns Iv 1000 Ml (Sodium Chloride 0.9%) (01/28/19 21:51) Cbc With Automated Diff (01/28/19 21:51) Comprehensive Metabolic Panel (01/28/19 21:51) Terbutaline Injection (Brethine Injectio (01/28/19 22:15) Ua Culture If Indicated (01/28/19 22:37) Medications Given in ED Current Medications Medications Dose Ordered Sig/Megan Route Start Time Stop Time Status Last Admin Dose Admin Terbutaline Sulfate 0.25 mg ONCE ONCE SC 01/28/19 22:15 01/28/19 22:16 DC 01/28/19 22:39 0.25 MG Vital Signs/I&O 01/28/19 01/28/19 22:07 23:01 Temp 98.6 98.5 Pulse 85 89 Resp 22 22 B/P (MAP) 125/73 (90) 137/59 (85) Pulse Ox 99 O2 Delivery Room Air Room Air 01/29/19 00:00 Intake Total 1000 ml Balance 1000 ml Capillary Refill : Progress Note #1: Time: 22:03 Progress Note She is 60% effaced 3 cm with a heart tones 142 and 99% on room air. Contractions about every 5-10 minutes lasting about 1-1-1/2 minutes. Progress Note #2: Time: 22:45 Progress Note After terbutaline the patient's contractions ceased and she is more comfortable. Vital signs are aseptic. Consults Consults : Consulting Physician: THUY HARDIN MD Consults Notes Discussed the case with Dr. Hardin and we both agree that her cervical exam is not advancing and he would be reasonable to give her some terbutaline make sure her labs are okay and is no evidence of DVT or significant risk for pulmonary embolism with a heart rate in the 70s and oxygen saturation of 98% on room air. If her labs are okay we'll send her upstairs for a NST. Departure Communication (Admissions) Time/Spoke to Admitting Phy: 22:[address] Hernandez and he would like the patient to have an NST. Impression Primary Impression: uterine contractions in third trimester, antepartum Additional Impression: Shortness of breath due to in third trimester Disposition: ADMITTED INPATIENT (observed) Condition: Stable Admissions Decision to Admit Reason: Admit from ER (General) Decision to Admit/Date: Jan 28, 2019 Time/Decision to Admit Time: 22:20 Departure-Patient Inst. Referrals: THUY HARDIN MD (PCP/Family) Primary Care Physician PRITI OLIVER Jan 28, 2019 22:08
[2019-01-28 22:11] LABS: BASOPHILS % (AUTO) 0 % (0-10); EOSINOPHILS # (AUTO) 0.1 10^3/uL (0.0-0.3); EOSINOPHILS % (AUTO) 1 % (0-10); HEMATOCRIT 31 % (35-52); HEMOGLOBIN 9.8 G/DL (11.5-16.0); LYMPHOCYTES # (AUTO) 2.7 X 10^3 (1.0-4.0); LYMPHOCYTES % (AUTO) 22 % (12-44); MEAN CORPUSCULAR HEMOGLOBIN 27 PG (25-34); MEAN CORPUSCULAR HGB CONC 32 G/DL (32-36); MEAN CORPUSCULAR VOLUME 87 FL (80-99); MONOCYTES # (AUTO) 1.5 X 10^3 (0.0-1.0); MONOCYTES % (AUTO) 12 % (0-12); NEUTROPHILS # (AUTO) 8.1 X 10^3 (1.8-7.8); NEUTROPHILS % (AUTO) 65 % (42-75); PLATELET COUNT 264 10^3/uL (130-400); RED CELL DISTRIBUTION WIDTH 13.9 % (10.0-14.5); WHITE BLOOD COUNT 12.5 10^3/uL (4.3-11.0)
[2019-01-28] MEDS ORDERED: TERBUTALINE INJ 1 MG/ML (BRETHINE) AMP SC ONE (22:15)
[2019-01-28 22:28] LABS: ALANINE AMINOTRANSFERASE 27 U/L (0-55); ALBUMIN 3.5 GM/DL (3.2-4.5); ALKALINE PHOSPHATASE 132 U/L (40-136); BILIRUBIN,TOTAL 0.3 MG/DL (0.1-1.0); BUN/CREATININE RATIO 11; CALCIUM 9.1 MG/DL (8.5-10.1); CARBON DIOXIDE 19 MMOL/L (21-32); CHLORIDE 106 MMOL/L (98-107); CREATININE SERUM 0.64 MG/DL (0.60-1.30); GFR ESTIMATED > 60; GLUCOSE 105 MG/DL (70-105); POTASSIUM 3.9 MMOL/L (3.6-5.0); SODIUM 137 MMOL/L (135-145); TOTAL PROTEIN 7.3 GM/DL (6.4-8.2)
[2019-01-28 22:42] LABS: BILIRUBIN,URINE NEGATIVE (NEGATIVE); CLARITY,URINE SLIGHTLY CLOUDY; COLOR,URINE YELLOW; GLUCOSE, URINE (UA) NEGATIVE (NEGATIVE); KETONES,URINE NEGATIVE (NEGATIVE); LEUKOCYTE ESTERASE ,URINE 1+ (NEGATIVE); NITRITE,URINE NEGATIVE (NEGATIVE); PH,URINE 7 (5-9); PROTEIN,URINE NEGATIVE (NEGATIVE); UROBILINOGEN,URINE NORMAL (NORMAL)
[2019-01-28 22:50] LABS: BACTERIA,URINE TRACE /HPF; RBC,URINE 0 /HPF; WBC,URINE 0 /HPF
[2019-01-28 23:01] VITALS: BP 137/59
== END 2019-01-28 23:01 | disposition other institution (70) ==
LOC: EDUNIT# 21:22 → ER 21:23
DX: O60.03 Preterm labor without delivery, third trimester (principal); O99.513 Diseases of the respiratory system complicating pregnancy, third trimester; R06.02 Shortness of breath; O99.353 Diseases of the nervous system complicating pregnancy, third trimester; G43.909 Migraine, unspecified, not intractable, without status migrainosus; O99.613 Diseases of the digestive system complicating pregnancy, third trimester; K21.9 Gastro-esophageal reflux disease without esophagitis; Z88.0 Allergy status to penicillin; Z98.890 Other specified postprocedural states; Z82.49 Family history of ischemic heart disease and other diseases of the circulatory system; Z3A.35 35 weeks gestation of pregnancy
CPT/HCPCS: 36415; 80053; 81000; 85025

== ENCOUNTER 2019-01-28 23:35 | Outpatient (CLI) | payer OTHER ==
--- NOTE | 2019-01-28 23:00 | NUR ---
RENUKA FELIZ presented to unit via cart from ED, accompanied by processing talc and borate supervisor & friend, with c/o SOA that was cleared in ED. RENUKA FELIZ voided & to bed. EFHM and TOCO applied, VS taken. RENUKA FELIZ oriented to bed controls, call light, TV, heat, and A/C controls.
[2019-01-28 23:42] VITALS: BP 109/61
--- NOTE | 2019-01-29 12:56 | Physician Query-Final Dx ---
DIONISIO ALANIS 01/29/19 1256: Clinic Account Progress/Dx Physician Query: Please give diagnosis Need dx and weeks of gestation Date of Service Jan 28, 2019 at 23:35 THUY HARDIN MD 02/04/19 0741: Clinic Account Progress/Dx DIAGNOSIS: Diagnosis 1. IUP at 33 1/2 weeks gestation 2. contractions DIONISIO ALANIS Jan 29, 2019 12:56 THUY HARDIN MD Feb 04, 2019 07:41
== END 2019-01-28 23:55 | disposition home or self-care (01) ==
LOC: WSo 23:35 → LDRP 23:36 → WSo 23:55
PROVIDERS: ATTEND Family Medicine
DX: O60.03 Preterm labor without delivery, third trimester (principal); Z3A.33 33 weeks gestation of pregnancy
CPT/HCPCS: 59025

== ENCOUNTER 2019-02-10 20:28 | Inpatient (IN) | payer OTHER ==
[~2019-02-10] VITALS: Ht 157.5 cm; Wt 87.1 kg
--- NOTE | 2019-02-10 20:30 | NUR ---
erin meza pt tolerated well.
--- NOTE | 2019-02-10 20:30 | NUR ---
RENUKA FELIZ presented to unit via wheelchair from ED, accompanied by , with c/o contractions, vaginal pressure. RENUKA FELIZ weighed, gowned, voided, and to bed. EFHM and TOCO applied, VS taken. RENUKA FELIZ oriented to bed controls, call light, TV, heat, and A/C controls.
[2019-02-10 20:48] LABS: BILIRUBIN,URINE NEGATIVE (NEGATIVE); CLARITY,URINE CLEAR; COLOR,URINE YELLOW; GLUCOSE, URINE (UA) 1+ (NEGATIVE); KETONES,URINE NEGATIVE (NEGATIVE); LEUKOCYTE ESTERASE ,URINE 2+ (NEGATIVE); NITRITE,URINE NEGATIVE (NEGATIVE); PH,URINE 6.5 (5-9); PROTEIN,URINE NEGATIVE (NEGATIVE); UROBILINOGEN,URINE NORMAL (NORMAL)
[2019-02-10 20:52] VITALS: BP 144/80
[2019-02-10 21:00] LABS: BACTERIA,URINE FEW /HPF
[2019-02-10 21:01] LABS: AMORPHOUS SEDIMENT,UR RARE AMOR PHOSPHATE /LPF
[2019-02-10 21:30] VITALS: BP 119/78
--- NOTE | 2019-02-10 21:37 | NUR ---
notified of pt's arrival and exam. order to monitor x1 more hour if no cervical change will dc'd home
[2019-02-10] MEDS ORDERED: D5 LR IV SOLUTION 1,000 ML IV ONE (22:34)
--- NOTE | 2019-02-10 22:34 | NUR ---
notified of exam. new orders received.
[2019-02-10] MEDS ORDERED: ZOLPIDEM 5 MG (AMBIEN) TAB PO ONE (22:45)
[2019-02-10] MEDS ORDERED: LACTATED RINGERS 500 ML IV SCH (22:45)
[2019-02-10] MEDS: D5 LR IV SOLUTION 1,000 ML IV SCH (23:15)
[2019-02-10 23:18] LABS: BASOPHILS % (AUTO) 0 % (0-10); EOSINOPHILS # (AUTO) 0.1 10^3/uL (0.0-0.3); EOSINOPHILS % (AUTO) 1 % (0-10); HEMATOCRIT 32 % (35-52); LYMPHOCYTES # (AUTO) 2.4 X 10^3 (1.0-4.0); LYMPHOCYTES % (AUTO) 20 % (12-44); MEAN CORPUSCULAR HGB CONC 32 G/DL (32-36); MEAN CORPUSCULAR VOLUME 83 FL (80-99); MEAN PLATELET VOLUME 11.6 FL (7.4-10.4); MONOCYTES # (AUTO) 1.2 X 10^3 (0.0-1.0); MONOCYTES % (AUTO) 10 % (0-12); NEUTROPHILS # (AUTO) 8.5 X 10^3 (1.8-7.8); NEUTROPHILS % (AUTO) 70 % (42-75); PLATELET COUNT 267 10^3/uL (130-400); RED CELL DISTRIBUTION WIDTH 14.4 % (10.0-14.5); WHITE BLOOD COUNT 12.2 10^3/uL (4.3-11.0)
[2019-02-10 23:19] LABS: MEAN CORPUSCULAR HEMOGLOBIN 26 PG (25-34)
[2019-02-11] VITALS (46 sets, daily range): BP systolic 97–147; BP diastolic 52–86
[2019-02-11] MEDS ORDERED: CLINDAMYCIN 900 MG/50 ML IVPB 50 ML IV ONE (02:12)
[2019-02-11] MEDS ORDERED: BUTORPHANOL INJ 2 MG/ML (STADOL) VIAL ONE (02:17)
[2019-02-11] MEDS: CLINDAMYCIN 900 MG/50 ML IVPB 50 ML IV SCH ×2 (02:23→10:35)
[2019-02-11] MEDS ORDERED: BUTORPHANOL INJ 2 MG/ML (STADOL) VIAL IV ONE (02:30)
[2019-02-11] MEDS ORDERED: SUFENTA 0.6MCG/ML BUPIVA 0.125 100 ML ONE (06:30)
[2019-02-11] MEDS: D5 LR IV SOLUTION 1,000 ML IV SCH ×2 (06:45→11:20)
--- NOTE | 2019-02-11 07:22 | History & Physical-OB ---
OB - Chief Complaint & HPI Date/Time Date of Admission: Date of Admission: Feb 11, 2019 at 03:11 Date seen by a Provider: Feb 11, 2019 Time Seen by a Provider: 07:30 Chief Complaint/History OB-Reason for Admission/Chief: Onset of Labor Hx : 5 Hx Para: 3 Expected Date of Delivery: Mar 10, 2019 Gestational Age in Weeks: 36 Gestational Age in Days: 1 Admission Nurse Assessment Rev: Yes Allergies and Home Medications Allergies Coded Allergies: Penicillins (Verified Allergy, Unknown, 02/10/19) FROM UNCODED ALLERGY LIST Home Medications [id number]/Iron Fumarate/FA/Dss 1 Each Tablet, 1 EACH PO DAILY, (Reported) Patient Home Medication List Home Medication List Reviewed: Yes OB - History Hx of Present Care: Yes Ultrasounds: Normal mid trimester US Obstetrical Complications: None Medical Complications: None Obstetrical History Hx : 5 Hx Para: 3 Hx Termination: No Hx Total # of Abortions (Spona: 1 Hx Multiple Gestation: No Hx Stillbirth: No Hx Complication: No Hx Induced Hypertens: No Hx Maternal Gestational Diabet: No Delivery History Hx Dystocia: No Hx Large For Gestational Age I: No Hx Small for Gestational Age I: No Hx Section: No Hx Vaginal Delivery Post C-Sec: No Hx Blood Disorders: No Adverse Rxn to Tranfusion: No Patient Past Medical History No chronic medical problems Social History/Family History HIV/AIDS: No Recent Infectious Disease Expo: No Sexually Transmitted Disease: No Alcohol Use: Denies Use Recreational Drug Use: No 2nd Hand Smoke Exposure: No Immunizations Tetanus Booster (TDap): Unknown Date of Influenza Vaccine: Feb 21, 2014 OB - Admission Exam Physical Exam Vitals: Vital Signs 02/11/19 02/11/19 05:00 06:30 Temp 97.3 Pulse 80 Resp 20 B/P (MAP) 118/57 (77) O2 Delivery Room Air HEENT: Moist Membranes Heart: Rhythm Normal Lungs: Clear Abdomen: Gravid Extremities: Normal Cervical Dilatation: 5cm Effacement: 75% Station: -3 Membranes: Intact Heart Rate: 140's Accelerations: Accelerations Present Labs Laboratory Tests Test 02/10/19 20:40 02/10/19 23:00 Range/Units Urine Color YELLOW Urine Clarity CLEAR Urine pH 6.5 5-9 Urine Specific [place] 1.010 L 1.016-1.022 Urine Protein NEGATIVE NEGATIVE Urine Glucose (UA) 1+ H NEGATIVE Urine Ketones NEGATIVE NEGATIVE Urine Nitrite NEGATIVE NEGATIVE Urine Bilirubin NEGATIVE NEGATIVE Urine Urobilinogen NORMAL NORMAL MG/DL Urine Leukocyte Esterase 2+ H NEGATIVE Urine RBC (Auto) NEGATIVE NEGATIVE Urine RBC NONE /HPF Urine WBC 5-10 H /HPF Urine Squamous Epithelial Cells 10-25 H /HPF Urine Crystals NONE /LPF Urine Amorphous Sediment RARE HARRIETT PHOSPHATE H /LPF Urine Bacteria FEW H /HPF Urine Casts NONE /LPF Urine Mucus NEGATIVE /LPF Urine Culture Indicated NO White Blood Count 12.2 H 4.3-11.0 10^3/uL Red Blood Count 3.78 L 4.35-5.85 10^6/uL Hemoglobin 10.0 L 11.5-16.0 G/DL Hematocrit 32 L 35-52 % Mean Corpuscular Volume 83 80-99 FL Mean Corpuscular Hemoglobin 26 25-34 PG Mean Corpuscular Hemoglobin Concent 32 32-36 G/DL Red Cell Distribution Width 14.4 10.0-14.5 % Platelet Count 267 130-400 10^3/uL Mean Platelet Volume 11.6 H 7.4-10.4 FL Neutrophils (%) (Auto) 70 42-75 % Lymphocytes (%) (Auto) 20 12-44 % Monocytes (%) (Auto) 10 0-12 % Eosinophils (%) (Auto) 1 0-10 % Basophils (%) (Auto) 0 0-10 % Neutrophils # (Auto) 8.5 H 1.8-7.8 X 10^3 Lymphocytes # (Auto) 2.4 1.0-4.0 X 10^3 Monocytes # (Auto) 1.2 H 0.0-1.0 X 10^3 Eosinophils # (Auto) 0.1 0.0-0.3 10^3/uL Basophils # (Auto) 0.0 0.0-0.1 10^3/uL OB - Assessment/Plan/Diagnosis Assessment Assessment: active labor (at 36w1d) Admission Dx 1. IUP at 36w1d 2. Hx/o of labor Admission Status: Inpatient Order (span 2 midnights) Reason for Inpatient Admission: L&D Plan Plan: Other (L&D) Other Plan -desires epidural -will provide Cleocin for GBS prophlaxis THUY HARDIN MD Feb 11, 2019 07:22
[2019-02-11] MEDS ORDERED: METOCLOPRAMIDE INJ 10 MG/2 ML (REGLAN) IV PRN (07:45)
[2019-02-11] MEDS ORDERED: LACTATED RINGERS 1,000 ML IV SCH (07:45)
[2019-02-11] MEDS ORDERED: EPIDURAL (SUFENTA 0.6MCG/ML BUPIVA 0.125%) 100 ML BAG EPI SCH (07:45)
[2019-02-11] MEDS ORDERED: NALOXONE 0.4 MG/ML 1 ML (NARCAN) VIAL IV PRN ×2 (07:45)
[2019-02-11] MEDS ORDERED: diphenhydrAMINE 50 MG/ML INJ (BENADRYL) IV PRN (07:45)
[2019-02-11] MEDS ORDERED: ONDANSETRON 4 MG/2 ML (SDV) Z0FRAN IV PRN (07:45)
[2019-02-11] MEDS ORDERED: OXYTOCIN/NORMAL SALINE 500 ML IV SCH ×2 (08:10→12:45)
--- NOTE | 2019-02-11 12:25 | NUR ---
dr lee denies tears/lacerations. ebl 200. light flow. 1227 pericare performed by this RN. light flow 3 small clots expressed with massage. urine noted with fundal massage. ice/pad to perineum assisted out of stirrups. repositioned to high fowlers. s/o remains present, helping with interpreting POC, teaching to patient explained by RN. 1232 epidural off. reviewed diet order and room service with patient. s/o verbalized understanding, interpreting to patient. 1240 fundal massage ffu/-1 light flow no clots expressed.
[2019-02-11] MEDS ORDERED: TETANUS,DIPTH,PERTUSS P/F (BOOSTRIX) 0.5 ML VIAL IM ONE (12:45)
[2019-02-11] MEDS ORDERED: BENZOCAINE/MENTHOL (DERMOPLAST) 56 ML CAN TP PRN (12:45)
[2019-02-11] MEDS ORDERED: MEASLES,MUMPS,RUBELLA 1 EA INJ SQ ONE (12:45)
[2019-02-11] MEDS ORDERED: WITCH HAZEL(TUCKS) 40 EA JAR TOP PRN (12:45)
--- NOTE | 2019-02-11 12:45 | OB Labor & Delivery Record ---
L&D History Date of Service Date of Service: Feb 11, 2019 History Expected Date of Delivery: Mar 10, 2019 Gestational Age in Weeks: 36 Hx : 5 Hx Para: 3 Complications Events: Labor <37 wks Operative Indications (Cesarea: N/A-Vaginal Delivery Intrapartal Events: None L&D Stage1 Stage One Onset of Labor - Date: Feb 11, 2019 Onset of Labor - Time: 07:30 Monitors and Tracing Monitor Mode: Internal Heart Rate: 130 Monitor Decelerations: None Station: -2 Mcfp Variability: Average (6-10) Short Term Variability: Present Presentation: Vertex Vital Signs VS - Last 72 Hours, by Label 02/10/19 02/10/19 02/11/19 02/11/19 20:52 21:30 01:31 03:00 Temp 98.4 Pulse 99 84 77 81 Resp 20 20 20 20 B/P (MAP) 144/80 (101) 119/78 (92) 111/56 (74) 106/61 (76) O2 Delivery Room Air Room Air Room Air Room Air 02/11/19 02/11/19 02/11/19 02/11/19 03:30 04:00 04:30 05:00 Temp 97.3 Pulse 79 77 77 69 Resp 20 20 20 20 B/P (MAP) 103/61 (75) 104/59 (74) 108/61 (77) 101/55 (70) O2 Delivery Room Air Room Air Room Air Room Air 02/11/19 02/11/19 02/11/19 02/11/19 05:30 06:00 06:30 07:00 Pulse 66 67 80 78 Resp 20 20 20 20 B/P (MAP) 106/61 (76) 107/65 (79) 118/57 (77) 124/74 (91) O2 Delivery Room Air Room Air Room Air Room Air 02/11/19 02/11/19 02/11/19 02/11/19 07:25 07:30 07:35 07:40 Pulse 93 81 93 87 Resp 20 20 20 20 B/P (MAP) 146/86 (106) 135/82 (99) 132/82 (99) 119/70 (86) Pulse Ox 99 99 O2 Delivery Room Air Room Air Room Air Room Air 02/11/19 02/11/19 02/11/1902/11/19 07:45 07:50 07:55 08:00 Pulse 85 90 77 78 Resp 20 20 20 18 B/P (MAP) 114/66 (82) 108/63 (78) 113/64 (80) 103/61 (75) Pulse Ox 97 98 98 99 O2 Delivery Room Air Room Air Room Air Room Air Signs of Distress by FHT Signs of Distress no Rupture of Membranes Spontaneous Ruture of Membrane: No Amniotic Membrane Rupture Time: 07:30 L&D Stage2 Stage Two Stage II Date: Feb 11, 2019 Stage II Time: 12:15 Monitors and Tracing Monitor Mode: Internal Heart Rate: 130 Monitor Accelerations: Uniform Monitor Decelerations: None Mcfp Variability: Average (6-10) Short Term Variability: Present Position: Left Occiput Anterior Presentation: Vertex Signs of Distress by FHT Signs of Distress no Cord Descript/Complications Cord Vessel Description: 3 Vessels Delivery Type Infant Delivery Method: Spontaneous Vaginal Anterior Shoulder: Left Episiotomy/Perineal Laceration Laceraction(s)/Extensions: No Episiotomy Description: None Condition of Delivery 1 minute Comment: 8 5 minute Comment: 9 Condition of Condition of Infant: Living Exam: No Observed Abnormalities Resuscitation Resuscitation: N/A - Spontaneous Resp L&D Stage3 Stage Three Stage III Date: Feb 11, 2019 Stage III Time: 12:18 Pictocin Pitocin ml/hr: 125 Placenta Delivery Placenta Delivery: Spontaneous Delivery Summary Summary Estimated blood loss (mL): 200 Condition of Delivery Examined: Cervix Examined Post Hemorrhage: No Intervention Required none THUY HARDIN MD Feb 11, 2019 12:45
--- NOTE | 2019-02-11 12:45 | NUR ---
Report to Rafiq Toussaint RN.
[2019-02-11] MEDS ORDERED: CATHETER FLUSH 10 ML SYR IV SCH (14:00)
[2019-02-11] MEDS ORDERED: IBUPROFEN 600 MG (MOTRIN) TAB PO ONE (14:16)
[2019-02-11] MEDS: IBUPROFEN 600 MG (MOTRIN) TAB PO SCH ×2 (14:25→21:24)
--- NOTE | 2019-02-11 15:30 | NUR ---
[facility] team went to pt's room with baby in incubator. Discussed transfer and care. Pt assisted to BR - legs slightly weak yet, but voided large amount. Meenakshi bottle used and ice pack to perineum. Transferred to room 310 via wheelchair. Tucks and Dermaplast spray given at pt bedside. Verbalized understanding of usage.
--- NOTE | 2019-02-11 16:55 | NUR ---
genetic supervisor notified of 20 min wait for room service to answer without success by RN and patient.
--- NOTE | 2019-02-11 16:57 | NUR ---
RN on hold with room service for patient.
--- NOTE | 2019-02-11 17:13 | NUR ---
contact made by this RN for room service. reports ordered noted in system 10 min ago.
[2019-02-11] MEDS: ACETAMINOPHEN 500 MG TAB (TYLENOL) PO SCH (18:47)
--- NOTE | 2019-02-11 20:00 | NUR ---
Pt requesting to take a shower. iv dc'd. shower set up. pt denies any further needs at this time.
[2019-02-11] MEDS: DOCUSATE SODIUM 100 MG (COLACE) CAP PO SCH (21:24)
[2019-02-12] MEDS: ACETAMINOPHEN 500 MG TAB (TYLENOL) PO SCH ×2 (00:14→06:06)
[2019-02-12 00:30] VITALS: BP 100/58
[2019-02-12] MEDS: IBUPROFEN 600 MG (MOTRIN) TAB PO SCH ×2 (03:48→08:40)
[2019-02-12 03:49] VITALS: BP 108/53
[2019-02-12 05:32] LABS: BASOPHILS % (AUTO) 0 % (0-10); EOSINOPHILS # (AUTO) 0.1 10^3/uL (0.0-0.3); EOSINOPHILS % (AUTO) 1 % (0-10); HEMATOCRIT 30 % (35-52); HEMOGLOBIN 9.4 G/DL (11.5-16.0); LYMPHOCYTES # (AUTO) 3.1 X 10^3 (1.0-4.0); LYMPHOCYTES % (AUTO) 25 % (12-44); MEAN CORPUSCULAR HEMOGLOBIN 27 PG (25-34); MEAN CORPUSCULAR HGB CONC 32 G/DL (32-36); MEAN CORPUSCULAR VOLUME 85 FL (80-99); MEAN PLATELET VOLUME 11.7 FL (7.4-10.4); MONOCYTES # (AUTO) 1.1 X 10^3 (0.0-1.0); MONOCYTES % (AUTO) 9 % (0-12); NEUTROPHILS # (AUTO) 8.2 X 10^3 (1.8-7.8); NEUTROPHILS % (AUTO) 66 % (42-75); PLATELET COUNT 237 10^3/uL (130-400); RED CELL DISTRIBUTION WIDTH 14.2 % (10.0-14.5); WHITE BLOOD COUNT 12.5 10^3/uL (4.3-11.0)
--- NOTE | 2019-02-12 07:22 | Discharge Summary ---
Diagnosis/Chief Complaint Date of Admission Feb 11, 2019 at 03:11 Date of Discharge February 12, 2019 Admission Diagnosis Admission Diagnosis 1. Intrauterine at 36 weeks gestation Discharge Diagnosis 1. Intrauterine at 36 weeks gestation Chief Complaint/HPI Chief Complaint/HPI 33-year-old 5 T3 P1 L4 who presents in active labor during the regulated program manager of February 11, 2019. Patient was noted to be at 36 weeks 1 day gestation. Her GBS status was unknown and her EDC is March 10, 2019. She had denied rupture of membranes. Upon presentation she was noted to be 45 centimeters dilated. Discharge Summary-OBS Procedures 1. Epidural per anesthesia 2. Spontaneous vaginal delivery Discharge Physical Examination Allergies: Coded Allergies: Penicillins (Verified Allergy, Unknown, 02/10/19) FROM UNCODED ALLERGY LIST Vitals & I&Os Intake and Output 02/12/19 00:00 Intake Total 700 ml Balance 700 ml Vital Sign - Last 12Hours Date Time Temp Pulse Resp B/P (MAP) Pulse Ox O2 Delivery O2 Flow Rate FiO2 02/12/19 03:49 98.1 86 16 108/53 (71) Room Air 02/11/19 12:15 99 General Appearance: No Acute Distress Respiratory: Clear to Auscultation Cardiovascular: Regular Rate Abdominal: Soft (With uterus firm) Neuro: Normal Speech Hospital Course Upon presentation on February 11 she underwent labor. Epidural was given with excellent pain relief. She required low-dose Pitocin augmentation to achieve adequate contraction pattern. Ultimately she delivered a 36 weeks viable female with Apgars of 8 at 1 minute and 9 at 5 minutes. There was no episiotomy and no perineal lacerations or tears. Following delivery she underwent routine care orders. She was felt ready for dismissal during the morning of February 12, 2019 since her daughter had been sent to [facility] due to respiratory issues. She was noted to have a stable hemoglobin on the day of dismissal of 9.4 compared to admission of 10.0. She was ambulatory and without any shortness of breath or leg pains. Labs Laboratory Tests 02/12/19 05:20: White Blood Count 12.5H, Red Blood Count 3.52L, Hemoglobin 9.4L, Hematocrit 30L, Mean Corpuscular Volume 85, Mean Corpuscular Hemoglobin 27, Mean Corpuscular Hemoglobin Concent 32, Red Cell Distribution Width 14.2, Platelet Count 237, Mean Platelet Volume 11.7H, Neutrophils (%) (Auto) 66, Lymphocytes (%) (Auto) 25, Monocytes (%) (Auto) 9, Eosinophils (%) (Auto) 1, Basophils (%) (Auto) 0, Neutrophils # (Auto) 8.2H, Lymphocytes # (Auto) 3.1, Monocytes # (Auto) 1.1H, Eosinophils # (Auto) 0.1, Basophils # (Auto) 0.0 Discharge Instructions to patient/family Please see electronic discharge instructions given to patient. Discharge Medications Reviewed and agree with Discharge Medication list on patient's Discharge Instruction sheet Clinical Quality Measures DVT/VTE Risk/Contraindication: Risk Factor Score Per Nursin RFS Level Per Nursing on Admit: 2=Moderate THUY HARDIN MD Feb 12, 2019 07:22
--- NOTE | 2019-02-12 08:00 | NUR ---
DR. HARDIN HERE TO SEE PT. PLAN FOR DISCHARGE R/T BEING TRANSFERRED TO [place].
[2019-02-12] MEDS ORDERED: IBUP-844 PO (08:09)
--- NOTE | 2019-02-12 08:11 | Discharge Inst-Women's Service ---
Discharge Inst-Women's Serv Depart Medication/Instructions New, Converted or Re-Newed RX: Transmitted to Pharmacy ([facility]) Problems Reviewed?: Yes Consults/Follow Up Additional Follow Up: Yes (Dr. Taylor in 6 weeks at [facility]) Activity Activity: Activity as Tolerated NO SMOKING: NO SMOKING Nothing Inside Vagina: No [place] (For 6 weeks) Diet Discharge Diet: Regular Diet Return to The Hospital For: As below Symptoms to Report to : Bleeding Excessive, Pain Increased, Fever Over 101 Degrees F, Vaginal Discharge Foul For Any Problems or Questions: Contact Your Physician THUY HARDIN MD Feb 12, 2019 08:11
[2019-02-12 08:15] VITALS: BP 107/73
--- NOTE | 2019-02-12 08:18 | NUR ---
PT HAS HAD TDAP.
--- NOTE | 2019-02-12 08:30 | NUR ---
ASSESSMENT COMPLETED. VSS. C/O CRAMPING. SPEAKS LIMITED MALIAN. FAMILY AT BEDSIDE. S.O. SPEAKS MALIAN WELL. INSTRUCTED IN STORK MEAL PROCEDURE. OFFERED TO ORDER FOR PT BUT SPOUSE STATES HE CAN DO IT.
[2019-02-12] MEDS: DOCUSATE SODIUM 100 MG (COLACE) CAP PO SCH (08:39)
--- NOTE | 2019-02-12 09:19 | Anesthesia-Regional Post-Op ---
Regional Patient Condition Mental Status: Alert, Oriented x3 Circulation: Same as Pre-Op Headache: Absent Sensation: Full Recovery Motor Block: Absent Post Op Complications Complications None Follow Up Care/Instructions Patient Instructions None needed. Anesthesia/Patient Condition Patient is doing well, no complaints, stable vital signs, no apparent adverse anesthesia problems. No complications reported per nursing. SHERMAN CHO CRNA Feb 12, 2019 09:19
--- NOTE | 2019-02-12 10:00 | NUR ---
EATING STORK MEAL.
--- NOTE | 2019-02-12 11:40 | NUR ---
DISCHARGE INSTRUCTIONS REVIEWED WITH COPY TO PT. STATES UNDERSTANDING OF ALL INSTRUCTIONS AND NEED TO F/U SCHEDULED AND NEEDED. SPOUSE INTERPRETING NEEDED BUT PT APPEARS TO UNDERSTAND MOST OF EVERYTHING AND REPLIES APPROPRIATELY.
[2019-02-12 11:50] VITALS: BP 107/73
--- NOTE | 2019-02-12 11:50 | NUR ---
DISMISSED FROM WS VIA W/C IN STABLE CONDITION TO FAMILY CAR ACC BY S.O. AND PT'S MOTHER. PT LEFT WHILE THIS RN CALLED TO ANOTHER ROOM. W/C WAS AT FRONT ENTRANCE.
== END 2019-02-12 11:50 | disposition home or self-care (01) | DRG 807 ==
LOC: WSo 20:28 → LDRP 20:29 → WSo 02-11 03:11 → LDRP 02-11 15:40
PROVIDERS: ADMIT Family Medicine; ATTEND Pediatrics
PROC: 10E0XZZ Delivery of Products of Conception, External Approach (ICD-10-PCS; principal; 2019-02-11)
DX: O60.14X0 Preterm labor third trimester with preterm delivery third trimester, not applicable or unspecified (principal); Z3A.36 36 weeks gestation of pregnancy; Z37.0 Single live birth; Z88.0 Allergy status to penicillin
CPT/HCPCS: 36415; 81000; 85025; 86850; 86900; 86901; 99212

== ENCOUNTER 2022-05-26 00:10 | Emergency (ER) | payer SELFPAY ==
[~2022-05-26] VITALS: Ht 152.4 cm; Wt 81.6 kg
[~2022-05-26 00:10] MED LIST changes: +IBUP-844 PO; -OMEP20CA13 PO; +OMEP20CA18 PO
[2022-05-26] MEDS ORDERED: ONDANSETRON 4 MG (ZOFRAN) ORAL DISSOLVE TAB PO STA (00:24)
--- NOTE | 2022-05-26 00:28 | ED Fever ---
History of Present Illness General Stated Complaint: PAIN ALL OVER,VOMITING,FEVER,SHAKING Source: patient, family Exam Limitations: no limitations History of Present Illness Date Seen by Provider: May 26, 2022 Time Seen by Provider: 00:20 Initial Comments 37-year-old female with history of depression presents to the emergency department today for fevers. Symptoms for couple of days. Associated symptoms include body aches chills cough and vomiting. No sick contacts. Last use Tylenol at about 2:00. Allergies and Home Medications Allergies Coded Allergies: Penicillins (Verified Allergy, Unknown, 02/10/19) FROM UNCODED ALLERGY LIST Patient Home Medication List Home Medication List Reviewed: Yes Ibuprofen (Ibu) 600 Mg Tablet, 600 MG PO Q6HR Prescribed by: THUY HARDIN on 02/12/19 0809 Ondansetron (Ondansetron Odt) 8 Mg Tab.rapdis, 8 MG SL Q6H PRN for NAUSEA/VOMITING Prescribed by: MELBA CHILEL MD on 05/26/22 0145 [id number]/Iron Fumarate/FA/Dss ( 19 Tablet) 1 Each Tablet, 1 EACH PO DAILY, (Reported) Entered as Reported by: CORRINA HASTINGS on 12/21/184 Review of Systems Review of Systems Constitutional: chills, fever, malaise EENTM: no symptoms reported Respiratory: cough Cardiovascular: no symptoms reported Gastrointestinal: no symptoms reported Genitourinary: no symptoms reported Musculoskeletal: other (Body aches) Skin: no symptoms reported Psychiatric/Neurological: No Symptoms Reported Hematologic/Lymphatic: No Symptoms Reported Immunological/Allergic: no symptoms reported Past Fcjdlck-Swtnbh-Iavbdu Hx Patient Social History Tobacco Use?: No Use of E-Cig and/or Vaping dev: No Substance use?: No Alcohol Use?: No Immunizations Up To Date Tetanus Booster (TDap): Unknown Seasonal Allergies Seasonal Allergies: No Past Medical History Surgeries: Yes (INCISIONAL HERNIA REPAIR) Abdominal, Gallbladder Respiratory: No Cardiac: No (15 years ago reports an arrythmia) Neurological: No Headaches /Migraines Reproductive Disorders: No Sexually Transmitted Disease: No HIV/AIDS: No Genitourinary: No Gastrointestinal: Yes Hiatal Hernia Musculoskeletal: No Endocrine: No HEENT: No Cancer: No Psychosocial: No Integumentary: No Blood Disorders: No Adverse Reaction/Blood Tranf: No Family Medical History Reviewed Nursing Family Hx Family history: Diabetes mellitus 03 MOTHER Family history: Hypertension 03 FATHER No Family History of: Abdominal aortic aneurysm [place]'s disease Alcoholism Aphasia Cancer Cancer of colon Cataract Chest pain Congenital heart disease Congestive heart failure Cystic fibrosis Dementia Dysphagia Family history: Allergy Family history: Alzheimer's disease Family history: Arthritis Family history: Asthma Family history: Breast disease Family history: Cardiovascular disease Family history: Coronary thrombosis Family history: Gastrointestinal disease Family history: Glaucoma Family history: Osteoporosis Family history: Thyroid disorder Headache Hearing loss Heart disease Hereditary disease History of - anemia History of - disorder History of - respiratory disease History of drug abuse Human immunodeficiency virus (HIV) seropositivity Hypercholesterolemia Infertile Kidney disease Malignant neoplasm of lung Myocardial infarction Parkinson's disease Prostate cancer Psychotic disorder Seizure disorder Stroke Tuberculosis Visual impairment Heart Disease, Diabetes Physical Exam Vital Signs - First Documented 05/26/22 00:20 Temp 38.9 Pulse 141 Resp 20 B/P (MAP) 125/94 (104) Pulse Ox 98 O2 Delivery Room Air Capillary Refill : Height: 5'2.00" Weight: 192lbs. 0.0oz. 87.528001hk; 35.1 BMI Method:Stated General Appearance: WD/WN, other (Patient is shivering) HEENT: PERRL/EOMI, normal ENT inspection, TMs normal, pharynx normal Neck: non-tender, full range of motion, supple, normal inspection Respiratory: chest non-tender, lungs clear, normal breath sounds, no respiratory distress, no accessory muscle use Cardiovascular: no edema, no murmur, tachycardia Gastrointestinal: normal bowel sounds, non tender, soft, no organomegaly Extremities: normal range of motion, non-tender, normal inspection, no pedal edema, no calf tenderness Neurologic/Psychiatric: alert, oriented x 3 Skin: normal color, warm/dry Progress/Results/Core Measures Suspected Sepsis SIRS Temperature: Pulse: Respiratory Rate: Blood Pressure / Mean: Results/Orders My Orders Orders - MELBA CHILEL DO Ondansetron Oral Dissolve Tab (Zofran (05/26/22 00:24) Acetaminophen Tablet (Tylenol Tablet) (05/26/22 00:30) Medications Given in ED Vital Signs/I&O 05/26/22 05/26/22 05/26/22 00:20 00:34 01:53 Temp 38.9 38.9 37.9 Pulse 141 97 Resp 20 18 B/P (MAP) 125/94 (104) 122/89 Pulse Ox 98 100 O2 Delivery Room Air Room Air Capillary Refill : Departure Communication (Admissions) Patient is hemodynamically stable. Symptoms consistent with viral illness without any focal source of bacterial infection. No indication for other than conservative treatment at this time. Discussed with patient she is comfortable agreeable current plan of care. Discharged in stable condition. Impression Primary Impression: Influenza-like symptoms Disposition: HOME, SELF-CARE Condition: Stable Departure-Patient Inst. Referrals: [facility] (PCP/Family) Primary Care Physician Patient Instructions: Flu, Adult (DC) Add. Discharge Instructions: Alternate Tylenol and ibuprofen as needed for fevers, body aches. support coordinator the Zofran and use it as needed for nausea. Take small sips of water every 15 to 20 minutes. Increase other fluids as well. Return to the emergency department for any severe concerns. Follow-up with your primary doctor for any nonemergent needs. Scripts Ondansetron (Ondansetron Odt) 8 Mg Tab.rapdis 8 MG SL Q6H PRN for NAUSEA/VOMITING for 4 Days, #16 TAB Prov: MELBA CHILEL DO 05/26/22 MELBA CHILEL DO May 26, 2022 00:28
[2022-05-26] MEDS ORDERED: ACETAMINOPHEN 500 MG TAB (TYLENOL) PO ONE (00:30)
[2022-05-26] MEDS ORDERED: ONDA8TAB13 SL (01:45)
[2022-05-26 01:53] VITALS: BP 122/89
== END 2022-05-26 01:53 | disposition home or self-care (01) ==
LOC: EDUNIT# 00:10 → ER 00:14
DX: R50.9 Fever, unspecified (principal); R05.9 Cough, unspecified; R11.10 Vomiting, unspecified
CPT/HCPCS: 99283

== ENCOUNTER 2022-06-18 21:54 | Emergency (ER) | payer SELFPAY ==
[~2022-06-18] VITALS: Ht 152.4 cm; Wt 83.0 kg
[~2022-06-18 21:54] MED LIST changes: +ONDA8TAB13 SL
--- NOTE | 2022-06-18 22:16 | ED Cough/URI ---
General Chief Complaint: Cough/Cold/Flu Symptoms Stated Complaint: FEVER - SORE THRAOT Source: patient, family Exam Limitations: language barrier ( to translate ) (HAKAN WHITT) History of Present Illness Date Seen by Provider: Jun 18, 2022 Time Seen by Provider: 22:16 Initial Comments 37 F presents with 4 week hx of sore throat that has worsened over the past 24 hours, fever, productive cough with streaks of blood, ear pain and malaise. Pt states her throat pain is sharp stabbing non-radiating and rated 10/10 and describes her pharynx as "dry." Ear pain is described as feeling full and rated 10/10 and claims mild decrease in hearing in right ear. mild nausea w/o emesis. denies any diarrhea. No changes in eating or drinking. Has tried chloro-septic swallow, throat lasagnes, and cough drops with no relief. She notes that she came to the ED when this started and was dx with influenza, f/u with [facility] and was told she was flu negative and placed on a abx (cant rememeber what abx), and symptoms resolved for 48 hours and have since returned. Last dose of tylenol was 4 hours ago. Timing/Duration: this morning, getting worse Severity/Quality: moderate, productive cough, blood streaked sputum Prior Episodes/Possible Cause: chronic episodes (past 4 weeks ) Modifying Factors: Improves With Coughing (worsens ) Associated Symptoms: cough, earache, fever/chills, headache, nasal congestion, nasal drainage, shortness of breath, sore throat (HAKAN WHITT) Allergies and Home Medications Allergies Coded Allergies: Penicillins (Verified Allergy, Unknown, 02/10/19) FROM UNCODED ALLERGY LIST Patient Home Medication List Home Medication List Reviewed: Yes (HAKAN WHITT) Ibuprofen (Ibu) 600 Mg Tablet, 600 MG PO Q6HR Prescribed by: THUY HARDIN on 02/12/19 0809 Ondansetron (Ondansetron Odt) 8 Mg Tab.rapdis, 8 MG SL Q6H PRN for NAUSEA/VOMITING Prescribed by: MELBA CHILEL MD on 05/26/22 0145 [id number]/Iron Fumarate/FA/Dss ( 19 Tablet) 1 Each Tablet, 1 EACH PO DAILY, (Reported) Entered as Reported by: CORRINA HASTINGS on 12/21/[id number] Review of Systems Review of Systems Constitutional: chills, fever, malaise EENTM: hearing loss (rt ear ), hoarseness, throat pain Respiratory: cough, phlegm (with streaks of blood ) Cardiovascular: No chest pain, No palpitations Gastrointestinal: No abdominal pain, No constipation, No diarrhea, No dysphagia; nausea; No vomiting Genitourinary: No dysuria, No frequency, No hematuria Musculoskeletal: No back pain, No joint pain Skin: No change in color, No change in hair/nails, No lesions, No lumps Psychiatric/Neurological: Headache; Denies Numbness, Denies Paresthesia Hematologic/Lymphatic: No Symptoms Reported Immunological/Allergic: no symptoms reported (SAUCE,HAKAN) Past Qtfzogj-Ldpqqo-Taxwvm Hx Patient Social History Tobacco Use?: No Use of E-Cig and/or Vaping dev: No Substance use?: No Alcohol Use?: No (SAUCE,HAKAN) Immunizations Up To Date Tetanus Booster (TDap): Unknown Influenza Vaccine Up-to-Date: No; Not Current First/Initial COVID19 Vaccinat: 2020 Second COVID19 Vaccination Lawson: 2020 Third COVID19 Vaccination Date: 2021 COVID19 Vaccine Financial Underwriter: CardMunch X3 (SAUCE,HAKAN) Seasonal Allergies Seasonal Allergies: No (SAUCE,HAKAN) Past Medical History Surgery/Hospitalization HX: DEPRESSION Surgeries: Yes (INCISIONAL HERNIA REPAIR) Abdominal, Gallbladder Respiratory: No Cardiac: No (15 years ago reports an arrythmia) Neurological: No Headaches /Migraines Reproductive Disorders: No Sexually Transmitted Disease: No HIV/AIDS: No Genitourinary: No Gastrointestinal: Yes Hiatal Hernia Musculoskeletal: No Endocrine: No HEENT: No Cancer: No Psychosocial: No Integumentary: No Blood Disorders: No Adverse Reaction/Blood Tranf: No (SAUCE,HAKAN) Family Medical History Family history: Diabetes mellitus 03 MOTHER Family history: Hypertension 03 FATHER No Family History of: Abdominal aortic aneurysm [place]'s disease Alcoholism Aphasia Cancer Cancer of colon Cataract Chest pain Congenital heart disease Congestive heart failure Cystic fibrosis Dementia Dysphagia Family history: Allergy Family history: Alzheimer's disease Family history: Arthritis Family history: Asthma Family history: Breast disease Family history: Cardiovascular disease Family history: Coronary thrombosis Family history: Gastrointestinal disease Family history: Glaucoma Family history: Osteoporosis Family history: Thyroid disorder Headache Hearing loss Heart disease Hereditary disease History of - anemia History of - disorder History of - respiratory disease History of drug abuse Human immunodeficiency virus (HIV) seropositivity Hypercholesterolemia Infertile Kidney disease Malignant neoplasm of lung Myocardial infarction Parkinson's disease Prostate cancer Psychotic disorder Seizure disorder Stroke Tuberculosis Visual impairment Heart Disease, Diabetes (SAUCEHAKAN) Physical Exam Vital Signs - First Documented 06/18/22 21:58 Temp 36.7 Pulse 80 Resp 20 B/P (MAP) 126/84 (98) Pulse Ox 99 O2 Delivery Room Air (CHAGO GU MD) Capillary Refill : (HAKAN WHITT) Height: 5'2.00" Weight: 192lbs. 0.0oz. [id number]; 35.00 BMI Method:Stated General Appearance: WD/WN, no apparent distress Eyes: Bilateral Eye Normal Inspection, Bilateral Eye PERRL, Bilateral Eye EOMI HEENT: PERRL/EOMI, TM abnormal (R), TM abnormal (L), pharyngeal erythema Neck: supple, normal inspection, lymphadenopathy (R), lymphadenopathy (L), tender midline; No thyromegaly Respiratory: chest non-tender, lungs clear, normal breath sounds, no respiratory distress, no accessory muscle use Cardiovascular: regular rate, rhythm, no edema, no murmur Gastrointestinal: normal bowel sounds, non tender, soft, no organomegaly, no pulsatile mass Extremities: non-tender, no pedal edema, no calf tenderness, normal capillary refill Neurologic/Psychiatric: no motor/sensory deficits, alert, oriented x 3 Skin: normal color, warm/dry Lymphatic: no adenopathy (SAHAKAN TREVINO) Progress/Results/Core Measures Suspected Sepsis SIRS Temperature: Pulse: Respiratory Rate: Blood Pressure / Mean: (SAGEOFFREY TREVINOHAKAN) Results/Orders Lab Results Laboratory Tests Test 06/18/22 22:00 06/18/22 23:40 Range/Units Influenza Type A (RT-PCR) Not Detected Not Detecte Influenza Type B (RT-PCR) Not Detected Not Detecte SARS-CoV-2 RNA (RT-PCR) Not Detected Not Detecte Group A Streptococcus Screen NEGATIVE NEGATIVE (CHAGO GU MD) My Orders Orders - CHAGO GU MD Monotest (06/18/22 22:51) Lidocaine 2% Viscous 15 Ml (Xylocaine Vi (06/18/22 23:00) Antacid Suspension (Mylanta Suspension (06/18/22 23:00) (CHAGO GU MD) Medications Given in ED Current Medications Medications Dose Ordered Sig/Megan Route Start Time Stop Time Status Last Admin Dose Admin Al Hydrox/Mg Hydrox/Simethicone 30 ml ONCE ONCE PO 06/18/22 23:00 06/18/22 23:01 DC 06/18/22 23:02 30 ML Lidocaine HCl 5 ml ONCE ONCE PO 06/18/22 23:00 06/18/22 23:01 DC 06/18/22 23:02 5 ML (CHAGO GU MD) Vital Signs/I&O 06/18/22 21:58 Temp 36.7 Pulse 80 Resp 20 B/P (MAP) 126/84 (98) Pulse Ox 99 O2 Delivery Room Air (CHAGO GU MD) Vital Signs/I&O Capillary Refill : (HAKAN WHITT) Progress Note : Time: 00:07 Progress Note Patient seen and evaluated by me. I have reviewed the medical student's documentation and agree. 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 No fevers, chills. Cough is occ productive. She's been using multiple OTC medications without relief. It has worsened in the last 24 hours. 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 No SOB. Her states it is worse at night and she does have birning in her chest. As far as GERD symptoms, she takes tums and maalox daily. PE: HEENT : mildly erythematous pharynx. Clear rhinorrhea Neck: mild cervical LAD CV: RR Chest : CTA no distress ASsessment: pharyngitis, GERD She has been evaluated with Viral panel and Monospot. All negative. I suspect she has a component of GERd causing burning in her throat. Will start her on Protonix 20mg daily and recc higher dose of ibuprofen and tylenol (as she only took one tylenol earlier). Also warm salt water gargles. And close follow up with her Primary. She may also have some espohagitis. No clinical or objective findings to warrant blood work. She does not meet the need for imaging, ie CXR based on HPI and PE. VSS, not hypoxic. Her is comfortable with plan of care. She did receive relief with maalox and viscous lidocane. (CHAGO GU MD) Departure Impression Primary Impression: Pharyngitis Qualified Codes: J02.9 - Acute pharyngitis, unspecified Additional Impression: GERD (gastroesophageal reflux disease) Qualified Codes: K21.9 - Gastro-esophageal reflux disease without esophagitis Disposition: HOME, SELF-CARE Condition: Improved Departure-Patient Inst. Decision time for Depature: 00:14 (CHAGO GU MD) Referrals: [facility] [place] (PCP/Family) Primary Care Physician Patient Instructions: Acid Reflux and Gastroesophageal Reflux Disease in Adults Add. Discharge Instructions: We have sent a prescription for protonix to your pharmacy - please take this every night. I believe to some degree, your acid reflux is causing cough and sore throat. You can continue to take Maalox, 30ml twice a day. This will help until the protonix really starts to work in a couple of days. Warm salt water gargles will also help your sore throat. Follow up with your primary care doctor next week. Come back to the Emergency Department if you have any new, emergent or worsening concerns. Verification and Attestation of Medical Student E/M Service A medical student performed and documented this service in my presence. I reviewed and verified all information documented by the medical student and made modifications to such information, when appropriate. I personally performed the physical exam and medical decision making. Chago Gu, Jun 19, 2022,00:04 (CHAGO GU MD) Copy Copies To 1: PANFILO FLOREZ DAULTON Jun 18, 2022 22:16 CHAGO GU MD Jun 19, 2022 00:05
[2022-06-18] MEDS ORDERED: LIDOCAINE 2% VISCOUS 15 ML UDC PO ONE (23:00)
[2022-06-18] MEDS ORDERED: ANTACID SUSP 30 ML UDC (MYLANTA) PO ONE (23:00)
[2022-06-19 00:23] VITALS: BP 118/72
== END 2022-06-19 00:23 | disposition home or self-care (01) ==
LOC: EDUNIT# 21:54 → ER 21:55
DX: J02.9 Acute pharyngitis, unspecified (principal); K21.9 Gastro-esophageal reflux disease without esophagitis; Z20.822 Contact with and (suspected) exposure to COVID-19
CPT/HCPCS: 36415; 86308; 87430; 87636